=== PATIENT | male | born 1975 | race Caucasian/White ===

== ENCOUNTER → 2019-03-12 09:45 | Outpatient (BNVA) | payer MEDICAID, SELFPAY | PROVIDERS: Family Provider Physician Assistant; PCP Physician Assistant; Visit Provider Anesthesiology Pain Medicine | DX: M54.12 Radiculopathy, cervical region (principal); M50.90 Cervical disc disorder, unspecified, unspecified cervical region; Z71.89 Other specified counseling; F17.210 Nicotine dependence, cigarettes, uncomplicated; Z79.891 Long term (current) use of opiate analgesic | CPT/HCPCS: 62321; 64479; 77003; J1100; J2001 ==

== ENCOUNTER → 2019-03-25 07:52 | Outpatient (BNVA) | payer MEDICAID, SELFPAY | PROVIDERS: Family Provider Physician Assistant; PCP Family Medicine; Visit Provider Nurse Practitioner | DX: G89.29 Other chronic pain (principal); M54.2 Cervicalgia; M54.5 Low back pain; M96.1 Postlaminectomy syndrome, not elsewhere classified; F17.210 Nicotine dependence, cigarettes, uncomplicated; Z79.891 Long term (current) use of opiate analgesic | CPT/HCPCS: 99213; 99214 ==

== ENCOUNTER → 2019-04-04 08:06 | Outpatient (BNVA) | payer MEDICAID, SELFPAY | PROVIDERS: Family Provider Physician Assistant; PCP Family Medicine; Visit Provider Nurse Practitioner | DX: F40.10 Social phobia, unspecified (principal); F41.0 Panic disorder [episodic paroxysmal anxiety] | CPT/HCPCS: 99213 ==

== ENCOUNTER 2019-04-14 11:05 | Outpatient (CLI) | payer MEDICAID, SELFPAY ==
--- NOTE | 2019-04-14 | XR_ITS ---
WS: [id number] SHOULDER LEFT TECHNIQUE: 3 views of the left shoulder CLINICAL INFORMATION: ROTATOR CUFF DISORDER LEFT COMPARISON: None. FINDINGS: Mild degenerative arthritis AC joint. Mild downsloping of the acromion. Rotator cuff arthropathy with loss of the subacromial space. No acute fractures. XR/XR shoulder LT min 2V* [id number] IMPRESSION: Rotator cuff arthropathy with mild downsloping of the acromion.
== END 2019-04-14 11:06 | disposition home or self-care (01) ==
LOC: RADOUTREAD 16:14
PROVIDERS: Family Provider Physician Assistant; PCP Family Medicine; Visit Provider Family Medicine
DX: Z76.89 Persons encountering health services in other specified circumstances (principal)

== ENCOUNTER 2019-05-07 09:23 | Outpatient (CLI) | payer MEDICAID, SELFPAY ==
--- NOTE | 2019-05-07 10:00 | IR_ITS ---
WS: [id number] CERVICAL MYELOGRAM HISTORY: cervical pain COMPARISON: 06/21/2018 FLUOROSCOPY TIME: 1.2 minutes. Procedure, risks and complications were explained to the patient. Risks including bleeding, infection , headaches, allergic reaction and seizures. Consent has been obtained. With the patient in prone position the skin over the lumbar region is cleansed with ChloraPrep and an esthetized with lidocaine. 22-gauge spinal needle is inserted into the thecal sac at the appropriate level determined by fluoroscopy. Omnipaque 300; 12 ml is injected slowly under fluoroscopy with no co mplications. Needle bevel is perpendicular to the longitudinal fibers of the dura. Stylet is reinsert ed prior to removal of the needle. Patient tolerated the procedure well. Patient will proceed to CT f or further evaluation. Contrast is injected in the lumbar region. There is no complication during the injection. Prior anterior cervical fusion at C6-7 with interbody spacer. No lucency around the screws. Fusion ac ross the interbody spacer. Less than 2 mm retrolisthesis of C3-C4 with no instability during flexion or extension. IR/IR myelogram sp cervical [id number] IMPRESSION: 1. Prior anterior cervical fusion with interbody spacer at C6-7. No complicati ons. No loosening. 2. Uncomplicated cervical myelogram. 3. Mild spondylosis without instability.
[2019-05-07] MEDS: iohexol 300 mg/mL 50 mL Btl INTRATHECA (10:26)
--- NOTE | 2019-05-07 11:30 | CT_ITS ---
WS: [id number] CT CERVICAL MYELOGRAM HISTORY: cervical pain Technique: All CT scans at [facility] use at least one of these dose optimization techniq ues: automated exposure control; mA and/or kV adjustment per patient size (includes targeted exams wh ere dose is matched to clinical indication); or iterative reconstruction. DLP: 1654.3 mGycm COMPARISON: 06/21/2018 and 03/22/2017 Good opacification of thecal sac with contrast. Prior anterior cervical fusion at C6-7. Anterior cervical plate, vertebral body screws and interbody spacer are probably position. No loosening or fractures identified. Posterior alignment is normal. There are small endplate osteophytes at C3-C7. No fracture. C1-C2: Normal. C2-C3: Mild osteophytic ridging without stenosis. C3-C4: Mild osteophytic ridging without significant encroachment. C4-C5: Mild osteophytic ridging. No significant stenosis. C5-C6: Mild osteophytic ridging with very mild foraminal narrowing. No significant stenosis. C6-C7: Moderate osteophytic ridging. There is a focal 3 mm osteophyte with mild cord contact centrall y. There is mild bilateral foraminal narrowing predominantly due to osteophyte disease. Lung apices are clear. Paraspinal soft tissues are negative. CT/CT cervical spine w con [id number] IMPRESSION: 1. Stable anterior cervical fusion with interbody spacer at C6-7. 2. Mild osteophytic ridging at C6-7. 3 mm osteophyte contacts the ventral cord . 3. Mild bilateral foraminal narrowing at C5-6 and C6-7.
== END 2019-05-07 09:24 | disposition home or self-care (01) ==
PROVIDERS: Family Provider Physician Assistant; PCP Family Medicine; Visit Provider Specialist
DX: M47.892 Other spondylosis, cervical region (principal); M54.2 Cervicalgia; M25.78 Osteophyte, vertebrae; Z98.1 Arthrodesis status
CPT/HCPCS: 62302; 72040; 72126; Q9967

== ENCOUNTER 2019-05-08 10:20 | Outpatient (CLI) | payer MEDICAID, SELFPAY ==
--- NOTE | 2019-05-08 11:00 | MR_ITS ---
WS: [id number] MRI LEFT SHOULDER NONCONTRAST TECHNIQUE: Sagittal T2, coronal T1, T2 and proton density imaging. Axial gradient PDE imaging. CLINICAL INFORMATION: left shoulder pain COMPARISON: None. FINDINGS: Mild degenerative arthritis at the AC joint. Mild downsloping of the acromion. Mild narrowing of the subacromial space. Small amount of subacromial/subdeltoid fluid. Mild thinning of the distal supraspi natus with a small amount of tendinopathy distally. No high-grade tear. Normal infraspinatus. Normal teres minor. No full-thickness rotator cuff tears. Normal biceps tendon in the bicipital groove. Distal subscapularis tendon is intact. Glenoid labrum a ppears grossly intact. Normal bone marrow signal in the humeral head and glenoid. No acute fractures. Normal visualized soft tissues. MR/MR shoulder LT con* [id number] IMPRESSION: 1. Mild tendinopathy in the distal supraspinatus with mild downsloping of the acromion. Mild chronic thinning of the distal supraspinatus. 2. Rotator cuff is otherwise intact. 3. Normal biceps tendon in the bicipital groove. 4. Glenoid labrum appears grossly normal. 5. Mild degenerative arthritis at the AC joint with a small amount of subacrom ial/subdeltoid fluid.
== END 2019-05-08 10:21 | disposition home or self-care (01) ==
LOC: RADSHAW 10:20
PROVIDERS: Family Provider Physician Assistant; PCP Family Medicine; Visit Provider Orthopaedic Surgery
DX: M19.012 Primary osteoarthritis, left shoulder (principal); M25.512 Pain in left shoulder
CPT/HCPCS: 73221

== ENCOUNTER → 2019-05-20 08:25 | Outpatient (BNVA) | payer MEDICAID, SELFPAY | PROVIDERS: Family Provider Physician Assistant; PCP Family Medicine; Visit Provider Nurse Practitioner | DX: M54.2 Cervicalgia (principal); G89.29 Other chronic pain; M54.5 Low back pain; F17.210 Nicotine dependence, cigarettes, uncomplicated; Z79.891 Long term (current) use of opiate analgesic | CPT/HCPCS: 99214 ==

== ENCOUNTER → 2019-05-22 12:48 | Outpatient (BNVA) | payer MEDICAID, SELFPAY | PROVIDERS: Family Provider Physician Assistant; PCP Family Medicine; Visit Provider Anesthesiology Pain Medicine | DX: M50.90 Cervical disc disorder, unspecified, unspecified cervical region (principal); F17.210 Nicotine dependence, cigarettes, uncomplicated | CPT/HCPCS: 62321; J1100; J2001 ==

== ENCOUNTER → 2019-07-04 08:43 | Outpatient (BNVA) | payer MEDICAID, SELFPAY | PROVIDERS: Family Provider Physician Assistant; PCP Family Medicine; Visit Provider Nurse Practitioner | DX: F41.0 Panic disorder [episodic paroxysmal anxiety] (principal); F40.10 Social phobia, unspecified | CPT/HCPCS: 99214 ==

== ENCOUNTER → 2019-07-29 07:49 | Outpatient (BNVA) | payer MEDICAID, SELFPAY | PROVIDERS: Family Provider Physician Assistant; PCP Family Medicine; Visit Provider Anesthesiology | DX: G89.29 Other chronic pain (principal); M43.12 Spondylolisthesis, cervical region; M50.20 Other cervical disc displacement, unspecified cervical region; M50.90 Cervical disc disorder, unspecified, unspecified cervical region; M96.1 Postlaminectomy syndrome, not elsewhere classified; M47.819 Spondylosis without myelopathy or radiculopathy, site unspecified; F17.210 Nicotine dependence, cigarettes, uncomplicated; Z71.6 Tobacco abuse counseling; Z87.39 Personal history of other diseases of the musculoskeletal system and connective tissue; Z79.891 Long term (current) use of opiate analgesic | CPT/HCPCS: 99214 ==

== ENCOUNTER → 2019-09-04 07:35 | Outpatient (BNVA) | payer MEDICAID, SELFPAY | PROVIDERS: Family Provider Physician Assistant; PCP Family Medicine; Visit Provider Nurse Practitioner | DX: F41.0 Panic disorder [episodic paroxysmal anxiety] (principal); F40.10 Social phobia, unspecified | CPT/HCPCS: 99214 ==

== ENCOUNTER 2019-09-05 22:23 | Inpatient (IN) | payer MEDICAID, SELFPAY ==
[2019-09-05 22:24] VITALS: BP 126/86; PULSE 86; RESP 16; TEMP 36.6; O2SAT 96; BMI 20.7
--- NOTE | 2019-09-05 22:29 | ED_ITS ---
HPI - Psych General: Chief Complaint: Psychiatric Symptoms Stated Complaint: MHE Time Seen by Provider: 09/05/19 22:27 Source: patient and EMS Mode of arrival: EMS Limitations: no limitations History of Present Illness: HPI Narrative: 44-year-old male who states he has a history of anxiety and has had increasing anxiety. Patient states he is recently placed on clonazepam but he is having increased anger and feels like he may snap and hurt someone. He states that he he has no specific homicidal ideations but is scared he may snap and hurt someone. He denies any suicidal i deations. He is wanting help and wants to go to psychiatric unit. Review of Systems Const: Denies: fever(s), chills, body aches or change in appetite Eyes: Denies: blurry vision or eye discomfort ENMT: Denies: throat pain or dental pain Card: Denies: chest pain Resp: Denies: dyspnea GI: Denies: abdominal pain, nausea, vomiting or diarrhea : Denies: dysuria Musc: Denies: neck pain or back pain Skin/Breast: Denies: rash Neuro: Denies: headache(s) Psych: Reports: anxiety González/Lymph: Denies: easy bruising All/Imm: Denies: urticaria PFSH ED PFSH: Medical History (Updated 09/05/19 @ 22:31 by Justice Perez MD) Chronic low back pain Disc displacement, cervical H/O degenerative disc disease Hx of fracture of ankle (~05/2018) LEFT ANKLE DR CAGLE IN [facility] 05/2018 Long-term use of high-risk medication Panic disorder [episodic paroxysmal anxiety] Smoking Social phobia, unspecified Spondylolisthesis, cervical region Spondylosis without myelopathy or radiculopathy Surgical History Hx of cervical spine surgery (~08/03/16) 08/03/16 C6-7 ACDFF Family History Father , UNKNOWN CAUSE No problems noted. Denies family history of Diabetes Anesthesia complication Bleeding disorder Cancer Social History Smoking and tobacco status: current every day smoker cigarettes Years cigarettes smoked: 20 [ Other cigarette details: 6 CIGS DAY ] Alcohol intake: never Lives independently: Yes Marital status: Single Current occupational status: disabled History of recent travel: No Physical Exam Const: COMMON NORMALS: no acute distress, patient oriented x3 and healthy appearing HENMT: COMMON NORMALS: normocephalic and atraumatic HEAD & SCALP: normocephalic and atraumatic Eye: COMMON NORMALS: Equal, round and reactive pupils present and EOMs intact bilaterally PUPIL: Yes Equal, round and reactive pupils present Neck/C-Spine: COMMON NORMALS: full ROM and supple Chest: COMMONS NORMALS: normal inspection of the chest and normal palpation of entire chest wall Resp: COMMON NORMALS: normal respiratory effort, No retractions, No use of accessory muscles and clear to auscultation bilaterally AUSCULTATION: clear to auscultation bilaterally Cardio: COMMON NORMALS: regular rate, regular rhythm and No murmurs present (Cardio) RATE: regular rate RHYTHM: regular rhythm GI: COMMON NORMALS: Normal to inspection, nondistended, normoactive bowel sounds present, Soft to palpation, non-tender and no masses PALPATION: Yes Soft to palpation Extremity: COMMON NORMALS: normal to inspection and full ROM Neuro: COMMON NORMALS: patient oriented x3, moves all extremities and no focal motor deficits Psych: COMMON NORMALS: mental status grossly normal, Normal thought process present and cooperative MOOD & AFFECT: Yes anxious THOUGHT PROCESS: Normal thought process present Skin: COMMON NORMALS: no rashes or lesions noted and no wounds GENERAL SKIN EXAM: no rashes or lesions noted MDM - Psych MDM Narrative: Medical decision making narrative: Patient presents here with anxiety along with anger issues. Patient is voluntarily wanting to be placed in the psychiatric unit I spoke to psychiatrist and will admit at this time. Patient has been stable while here. Discharge Plan Discharge Patient Disposition: Admitted As Inpatient Clinical Impression: Anxiety, Outbursts of anger Condition: Stable Prescriptions: No Action quetiapine [Seroquel] 200 mg tablet 200 mg PO .HS Qty: 30 RF: 2 fluoxetine 40 mg capsule 80 mg PO QAM Qty: 60 RF: 2 clonazepam 0.5 mg tablet 0.5 mg PO BID Qty: 60 RF: 1 buspirone 10 mg tablet 10 mg PO TID Qty: 90 RF: 1 cetirizine [Zyrtec] 10 mg tablet 10 mg PO DAILY RF: 0 tizanidine 4 mg capsule 4 mg PO QID PRN (Reason: muscle spasticity) Qty: 120 RF: 1 Referrals: Bakari Hankins MD [Primary Care Provider] - Lilia Hankins PA [Family Provider] - Coding Level of Care Code ED Banquet Coordinator for Chg Fwshonan
[2019-09-05] MEDS: LORazepam 2 mg Tablet PO (22:34)
[2019-09-05 22:47] LABS: Basophils # 0.1 10^3/uL (0.0-0.1); Basophils % 0.3 %; Eosinophils % 0.3 %; Hematocrit 39.4 % (42.0-52.0); Hemoglobin 13.3 g/dL (11.7-16.6); Lymphocytes # 3.7 10^3/uL (0.8-4.8); Lymphocytes % 25.5 %; Mean Corpuscular HGB Conc 33.8 g/dL (30.0-36.0); Mean Corpuscular Hemoglobin 31.2 pg (28.0-34.0); Mean Corpuscular Volume 92.5 fL (80-94); Mean Platelet Volume 9.6 fL (7.4-10.4); Monocytes # 0.6 10^3/uL (0.2-0.9); Monocytes % 3.9 %; Neutrophils # 10.06 10^3/uL (1.8-7.7); Neutrophils % 69.7 %; Nucleated Red Blood Cells % 0 %; Platelet Count 183 10^3/cmm (130-400); Red Blood Count 4.26 10^6/uL (4.1-5.3); Red Cell Distribution Width 13.1 % (12.1-15.1); White Blood Count 14.5 10^3/uL (4.0-10.0)
[2019-09-05 23:04] LABS: Alanine Aminotransferase 16 U/L (0-41); Albumin Level 4.9 g/dL (3.5-5.2); Alcohol Level 209 mg/dL (0-10); Alkaline Phosphatase 62 IU/L (40-130); Anion Gap 16.3 (5-19); Aspartate Amino Transferase 21 U/L (0-40); Blood Urea Nitrogen 5 mg/dL (6-20); Calcium 9.7 mg/dL (8.5-10.5); Carbon Dioxide 25 mmol/L (22-29); Chloride 98 mmol/L (98-107); Globulin 2.5 g/dL (1.3-4.6); Glucose 107 mg/dL (65-115); Osmolality Calculated 278 mOsm/kg (285-295); Potassium 3.3 mmol/L (3.5-5.1); Sodium 136 mmol/L (136-145); Total Bilirubin 0.2 mg/dL (0.15-1.2); Total Protein 7.4 g/dL (6.6-8.7)
[2019-09-05] MEDS: OLANZapine 10 mg ODT PO (23:06)
[2019-09-05 23:18] LABS: Acetaminophen < 5.0 ug/mL (10-30); Salicylate < 0.3 mg/dL (3-10)
--- NOTE | 2019-09-05 23:27 | PC.NURSE ---
called report to REYMUNDO [place] in NPU
[2019-09-05] MEDS: potassium chloride ER 10 mEq Tablet 40 MEQ PO (23:28)
[2019-09-05 23:45] VITALS: BP 127/76; PULSE 80; RESP 18; TEMP 36.6; O2SAT 95
[2019-09-05 23:46] LABS: Amphetamines Screen Urine Negative (Negative); Barbiturates Screen Urine Negative (Negative); Benzodiazepines Screen Urine Negative (Negative); Cocaine Screen Urine Negative (Negative); Opiate Screen Urine Negative (Negative); PCP Screen Urine Negative (Negative); THC Screen Urine Negative (Negative)
[2019-09-05] MEDS: hyDROXYzine 25 mg Capsule 50 MG PO (23:53)
[2019-09-05] MEDS: nicotine 21 mg Patch 1 PATCH TRANSDERMA (23:55)
[2019-09-06] MEDS: diphenhydrAMINE 50 mg/mL SDV 1mL IM (00:05)
[2019-09-06] MEDS: LORazepam 2 mg/mL INJ 1 mL IM (00:06)
[2019-09-06] MEDS: haloperidol inj 5 mg/mL INJ 1 mL IM (00:07)
--- NOTE | 2019-09-06 00:16 | PC.NURSE ---
B52 INJECTION Requested something for anxiety. Given po Vistaril but says has tried that and it does not work. Says feels agitated and fells like he might tear things up Requesting Ativan. Given injection IM of Haldol, Ativan and Benadryl
--- NOTE | 2019-09-06 01:17 | PC.NURSE ---
Called Dr. Kim for orders at 0010. Phone rang but was not answered.
--- NOTE | 2019-09-06 01:34 | PC.NURSE ---
The patient rolled out of bed and fell to the floor at 0025 and 0045. He had no apparent injury. The patient did not report injury. returned to bed. One side rail up for safety.
[2019-09-06 06:00] VITALS: RESP 18
[2019-09-06] MEDS: CLONazepam 0.5 mg Tablet PO (08:10)
[2019-09-06] MEDS: BuSPIRONE 10 mg Tablet PO ×3 (08:10→22:40)
--- NOTE | 2019-09-06 10:33 | PM.NHP ---
Providers/Chief Complaint Admitting Physician: Esequiel Kim MD Primary Care Provider: Bakari Hankins MD Chief Complaint: ptsd/ depression/ anxiety HPI NPU History of Present Illness Chief complaint: I am not sure what is wrong. For the past several months, I have been irritable, angry at everybody, depressed, and having nightmares. History of present illness:Lon Curran is a 44 year old male [place] who reports significant symptoms of depression amplified by symptoms of posttraumatic stress disorder. He states that he has had suicidal ideation for the past several months. At no time has he had an intent or plan. He reports being sad and blue on a daily basis. He has anhedonia, irritability, feelings of hopelessness and worthlessness. There is nothing that he is looking forward to. He denies changes in appetite or sleep though sleep has been a problem for other reasons. He reports the presence of an auditory hallucination in the form of 1 voice telling him to do things that he probably should not do. His reality testing remains intact. There is no history of manic symptoms or signs. His urine drug screen is significant for inebriation: Laboratory Tests 09/05/19 09/05/19 22:35 22:38 Urine Opiates Screen Negative Ur Barbiturates Screen Negative Ur Phencyclidine Scrn Negative Ur Amphetamines Screen Negative U Benzodiazepines Scrn Negative Urine Cocaine Screen Negative U Marijuana (THC) Screen Negative Ethyl Alcohol 209 H He also has a history significant for posttraumatic stress disorder. 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 He reports hypervigilance. He reports avoidance. The Seroquel knocks him out at night but it does not provide him quality sleep. He continues to feel anxious and irritable in the morning. It takes him a while to get to sleep. He cannot identify any significant new stressors in his life. Emergency room physician note:44-year-old male who states he has a history of anxiety and has had increasing anxiety. Patient states he is recently placed on clonazepam but he is having increased anger and feels like he may snap and hurt someone. He states that he he has no specific homicidal ideations but is scared he may snap and hurt someone. He denies any suicidal ideations. He is wanting help and wants to go to psychiatric Mental health history: The patient is being [facility] an [facility] basis [facility]. His last medication management note of 04/04/2019: Subjective: Lon is a 44-year-old male, who presents to [facility] for medication management and follow up for his social phobia and panic disorder. He was last seen November 2018. Lon tells me he is doing well. He would like to continue his same medications today. No complaints of anxiety. PLAN: Assessment: Lon is satisfied with his current prescriptions for management of his anxiety. Plan: Continue Prozac 80 mg daily Continue Seroquel 200 mg at bedtime He reports that he has been on Prozac quite a long time and it is the only antidepressant he has ever taken. He is ambivalent about it has really ever provided benefit. However he is generally kind of hopeless and pessimistic on most every topic today. He reports the Seroquel provides no benefit other than sleep. It is not being used to target mood instability or hallucinations. Family psychiatric history is positive for about brother being treated for depression. His current status and medication regimen are unknown. Social history: The patient has 2 sons ages 7 and 11 which are his primary source of enjoyment in life. He is unemployed and feels that he cannot find work primarily due to a history of trauma to his legs that prevent him from working. For self-esteem, he does find some work around the house and takes care of his children. He grew up in [place]. He dropped out of school in the 10th grade. He never did get his GED. He moved to this area as he has family living here. Legal history: He denies any history of arrests and incarcerations probation or parole. However review of the [place] public record reveals the following arrests: 2000 for DWI, 2002 for second-degree burglary, 2005 for third-degree domestic assault, 2007 for DWI and trespass, in 2013 for DWI. Past medical history: Medical history has not changed significantly from that required during his medical evaluation in the emergency room. He has no known drug allergies. He has had 1 surgery on his ankle and he has a plate in his neck due to a musculoskeletal condition. His chart says that he is allergic to tramadol but he denies this. Review of Systems Const: Denies: fever(s), chills, body aches or change in appetite Eyes: Denies: blurry vision or eye discomfort ENMT: Denies: throat pain or dental pain Card: Denies: chest pain Resp: Denies: dyspnea GI: Denies: abdominal pain, nausea, vomiting or diarrhea : Denies: dysuria Musc: Denies: neck pain or back pain Skin/Breast: Denies: rash Neuro: Denies: headache(s) Psych: Reports: anxiety González/Lymph: Denies: easy bruising All/Imm: Denies: urticaria Meds NPU Home Medications Medication Instructions Recorded Confirmed Last Taken Type cetirizine 10 mg tablet 10 mg PO DAILY tab 03/12/19 09/05/19 Unknown History tizanidine 4 mg capsule 4 mg PO QID PRN #120 cap 07/29/19 09/05/19 Unknown Rx buspirone 10 mg tablet 10 mg PO TID #90 tab 09/04/19 09/05/19 Unknown Rx clonazepam 0.5 mg tablet 0.5 mg PO BID #60 tab 09/04/19 09/05/19 Unknown Rx fluoxetine 40 mg capsule 80 mg PO QAM #60 cap 09/04/19 09/05/19 Unknown Rx quetiapine 200 mg tablet 200 mg PO .HS #30 tab 09/04/19 09/05/19 Unknown Rx Allergies Allergy/AdvReac Type Severity Reaction Status Date / Time tramadol Allergy HIVES Verified 07/29/19 08:13 PFS NPU PFSH: Medical History (Updated 09/05/19 @ 22:31 by Justice Perez MD) Chronic low back pain Disc displacement, cervical H/O degenerative disc disease Hx of fracture of ankle (~05/2018) LEFT ANKLE DR CAGLE IN [facility] 05/2018 Long-term use of high-risk medication Panic disorder [episodic paroxysmal anxiety] Smoking Social phobia, unspecified Spondylolisthesis, cervical region Spondylosis without myelopathy or radiculopathy Surgical History Hx of cervical spine surgery (~08/03/16) 08/03/16 C6-7 ACDFF Family History Father , UNKNOWN CAUSE No problems noted. Denies family history of Diabetes Anesthesia complication Bleeding disorder Cancer Social History (Updated 09/05/19 @ 23:17 by Meir Harkins) Smoking and tobacco status: current every day smoker cigarettes Packs smoked per day: 0.5 Years cigarettes smoked: 20 Number of cigarettes per day: 11-20 [ Other cigarette details: 6 CIGS DAY ] Alcohol intake: never Lives independently: Yes Marital status: Single Current occupational status: disabled History of recent travel: No Dietary Habits: Current diet type/program: regular Safety: Seatbelt use: always Drive intoxicated or ride with intoxicated special client bus driver?: never Home Safety: Working smoke detector in home: Yes Firearms in home: Yes Firearms unloaded and locked?: Yes Mental Status Exam MSE Comments: Mental Status Exam: The patient is a scruffy, unkempt tall thin man appearing approximately his stated age. Eye contact is good. He is interpersonally engaged. The information he provides is internally consistent and consistent with that in the chart. However it is noteworthy that he did not provide a lot of information that is in the chart. He discussed neither his degree of alcohol use or his criminal record. Appearance: hygiene is fair; no gross neurological deficits., gait is unremarkable; AIMS=0 Speech: Speech is of normal rate and rhythm and easily understood. Thought processes: Thought processes are abstract. Judgment is adequate for safety. Associations: intact Psychotic processes: There is no indication of guarding or paranoia. There is no attention to the internal stimuli. Auditory and visual hallucinations are denied. Judgment: Insight is fair. Problem solving skills are adequate for safety. Orientation: The patient is oriented to person, place time and situation. Memory: no deficits noted in immediate, intermediate, or remote spheres. Attention: The patient is alert and interpersonally engaged. Language: Verbalizations are coherent. Fund of knowledge: Fund of knowledge is adequate. Affect/Mood: Affect is consistent with a depressed mood. Denied suicidal ideation Affective range constricted Psychosis: perception unimpaired except through cognitive distortion; reality testing intact. Vitals/I&O/Wt Last Vital Signs Temp 97.9 F 09/05/19 23:45 Pulse 80 09/05/19 23:45 Resp 18 09/06/19 06:00 BP 127/76 09/05/19 23:45 Pulse Ox 95 09/05/19 23:45 Weight last 48 hrs Weight 63.503 kg Data NPU : 09/05/19 22:38 09/05/19 22:38 A&P Additional A&P Information Diagnoses: Alcohol intoxication Major depression?recurrent, moderate Posttraumatic stress disorder?chronic Assessment: It is difficult to assess his degree of depression in the presence of his alcohol use. However he clearly meets criteria for clinical depression and does not report significant benefit from his history of Prozac treatment. It is also true that the Seroquel is probably not serving him well in treating his PTSD symptoms. Staff witnessed on his first night here that his sleep was quite fitful to the extent that his thrashing caused him to fall out of bed twice. Treatment plan: Due to the psychiatric conditions and treatment listed in the Assessment and Plan - the patient requires continued hospitalization. Will provide a safe and therapeutic environment for patient.. Will continue inpatient treatment to allow for medication adjustment and monitoring. Will continue q15 min safety checks. Hospital day #2: Patient will be admitted to the adult psychiatric unit and provided entry into the individual and group therapy as part of the unit protocol. He will be provided nursing coverage by trained nursing staff who will be available to him. With regard to medication, Seroquel will be decreased to 100 mg at bedtime until a prazosin 1 to 2 mg at bedtime are found effective in helping him sleep. Prozac will be replaced with Celexa 40 mg daily. Potential benefits and side effects of these medications as well as time course of expected response to them was discussed in detail. Monitor patient's mood, sleep, appetite, and behavior closely. Encourage patient to participate in individual and group therapeutic sessions on the borrero. Estimated length of stay 5 days The expected benefits and potential side effects of patient's psychiatric medications were discussed with the patient. The patient understands and consents to treatment.CRITERIA FOR DISCHARGE: stable on medications and no longer an imminent risk Involuntary Hold Information 96 Hour Hold: 96 Hour Involuntary Admission: No Attestations NPU Medical Necessity Statement*: Patient will remain in the hospital another 2-4 nights for assessment of medication efficacy and tolerability. Coding Level of Care Code Acute Electronic Parts Salesperson for Giuseppe Arredondo
[2019-09-06 13:33] VITALS: BP 127/77; PULSE 95; RESP 17; TEMP 37.1
[2019-09-06 22:00] VITALS: BP 119/73; PULSE 116; RESP 22; TEMP 37.1; O2SAT 94
[2019-09-06] MEDS: prazosin 1 mg Capsule 2 MG PO (22:40)
[2019-09-06] MEDS: hyDROXYzine 25 mg Capsule 50 MG PO (22:40)
[2019-09-06] MEDS: quetiapine 100 mg Tablet PO (22:40)
[2019-09-07 05:49] VITALS: BP 119/73; PULSE 116; RESP 22; TEMP 37.1; O2SAT 94
[2019-09-07 06:25] VITALS: BP 114/79; PULSE 104; RESP 19; TEMP 36.9; O2SAT 92
[2019-09-07] MEDS: BuSPIRONE 10 mg Tablet PO (09:03)
[2019-09-07] MEDS: citalopram 20 mg Tablet 40 MG PO (09:03)
[2019-09-07 13:14] VITALS: BP 114/79; PULSE 104; RESP 19; TEMP 36.9; O2SAT 92
--- NOTE | 2019-09-07 13:19 | PM.NDC ---
Diagnoses at Discharge Discharge Diagnosis (1) Anxiety: Status: Acute Problem details: Patient leaving AMA. (2) Outbursts of anger: Status: Acute Problem details: Patient is leaving AMA. (3) Panic disorder [episodic paroxysmal anxiety]: Status: Acute Problem details: Patient is leaving AMA. Reason for Visit Reason for Visit: ptsd/ depression/ anxiety Hospital Course Hospital Course The patient entered yesterday and was examined by Dr. Fritz. He was at no time considered to be a danger to himself or others. Discharge Summary The patient failed to involve himself establish a treatment relationship here at the [facility]. He is requesting to sign out AGAINST MEDICAL ADVICE and I have evaluated him. I have found him to be competent to undertake this and understands the disadvantages also to discharge, which I have carefully reviewed with him. Involuntary Hold Information 96 Hour Hold: 96 Hour Involuntary Admission: No Mental Status Exam MSE Comments: This is a 44-year-old male of [employer] who came here for intrapsychic help but decided it was not to his taste. He presents at his stated age. He is somewhat disheveled but mood is calm and affect is appropriate and cognitive functions are certainly adequate for him to perform a rational and factual choice between various treatment alternatives, including no treatment at all. He elects the latter. He denies suicidal or homicidal ideation, plan or intent. He has treatment available through the [facility] system here. Discharge Data Vitals: Last Vital Signs Temp 98.4 F 09/07/19 13:14 Pulse 104 H 09/07/19 13:14 Resp 19 H 09/07/19 13:14 BP 114/79 09/07/19 13:14 Pulse Ox 92 09/07/19 13:14 Discharge Plan Discharge Patient Disposition: Home, Self-Care Condition: Stable Prescriptions: Continued quetiapine [Seroquel] 200 mg tablet 200 mg PO .HS Qty: 30 RF: 2 fluoxetine 40 mg capsule 80 mg PO QAM Qty: 60 RF: 2 clonazepam 0.5 mg tablet 0.5 mg PO BID Qty: 60 RF: 1 buspirone 10 mg tablet 10 mg PO TID Qty: 90 RF: 1 cetirizine [Zyrtec] 10 mg tablet 10 mg PO DAILY RF: 0 tizanidine 4 mg capsule 4 mg PO QID PRN (Reason: muscle spasticity) Qty: 120 RF: 1 Discharge Orders: Discharge Order (Routine); Ordered 09/07/19 Ordered By: Geovani Olivo Referrals: Bakari Hankins MD [Primary Care Provider] - Lilia Hankins PA [Staff Physician] - Discharge Diet: Usual diet Discharge Activity: Resume usual activity Discharge Attestations NPU Time Spent in Discharge Care*: other Specific Discharge Activities: Specific discharge activities: educating patient, discussing with protective services case worker/social workers/dc planners, documenting/other paperwork and evaluating patient/reviewing data Other discharge activites (optional): Assessing competency to sign out AGAINST MEDICAL ADVICE. Status at Discharge: Cognitive status at discharge: cognitively intact, Behavioral status at discharge: cooperative, Functional status at discharge: independent ambulation Overall status at discharge: patient is back to baseline Coding Level of Care Code Acute Corn Sheller Operator for Chg Fwd Diagnoses Anxiety F41.9 Outbursts of anger R45.4 Panic disorder [episodic paroxysmal anxiety] F41.0
--- NOTE | 2019-09-08 11:26 | PC.RESP ---
Smoking Cessation informatoin and a schedule of classes sent to patient.
== END 2019-09-07 14:12 | disposition left against medical advice (07) | DRG 880 ==
LOC: ER 22:39 → NP 22:45
PROVIDERS: Emergency Medicine; Admitting Provider Psychiatry & Neurology Psychiatry; PCP Family Medicine; Visit Provider Psychiatry & Neurology Psychiatry
DX: F41.0 Panic disorder [episodic paroxysmal anxiety] (principal); F33.1 Major depressive disorder, recurrent, moderate; F41.9 Anxiety disorder, unspecified; F43.12 Post-traumatic stress disorder, chronic; F17.210 Nicotine dependence, cigarettes, uncomplicated; G89.29 Other chronic pain; M54.5 Low back pain; Z53.29 Procedure and treatment not carried out because of patient's decision for other reasons
CPT/HCPCS: 12345; 36415; 80053; 80306; 80307; 85025; 96372; 99284; J1200; J1630; J2060

== ENCOUNTER 2019-09-05 22:32 | Emergency (ER) | payer MEDICAID, SELFPAY | END 2019-09-05 23:34 | disposition admitted as inpatient to this hospital (09) | LOC: ER 09-08 16:04 | PROVIDERS: Emergency Provider Emergency Medicine; PCP Family Medicine | DX: F41.9 Anxiety disorder, unspecified (principal); R45.4 Irritability and anger; F17.210 Nicotine dependence, cigarettes, uncomplicated | CPT/HCPCS: 12345; 36415; 85025; 96365; 96367; 96375; 99284; 99285 ==

== ENCOUNTER 2019-09-14 00:35 | Inpatient (IN) | payer MEDICAID, SELFPAY ==
--- NOTE | 2019-09-14 00:43 | W.ED.PSYCH ---
HPI - Psych General: Chief Complaint: Psychiatric Symptoms Stated Complaint: PSYCH EVAL Time Seen by Provider: 09/14/19 00:42 Source: patient Mode of arrival: ambulatory Limitations: no limitations History of Present Illness: HPI Narrative: 44-year-old male patient comes in today with suicidal thoughts and homicidal thoughts. Patient states that he has come to the point where he just wishes he was . Patient also is just would like to hurt everyone around him. Patient does have a history of anxiety and depression with outbursts of anger, panic disorder, and social phobia. Patient appears well. Patient also appears to have a chronic back pain as a history and long-term use of high-risk medications. Associated symptoms: Reports depression, homicidal ideation and suicidal ideation Review of Systems General: Reports: 10 or more systems reviewed and unremarkable except in HPI and below Psych: Reports: anxiety, depression, suicidal ideation and homicidal ideation [facility] ED PFSH: Medical History (Updated 09/14/19 @ 02:10 by LATRELL Weaver) Chronic low back pain Disc displacement, cervical H/O degenerative disc disease Hx of fracture of ankle (~05/2018) LEFT ANKLE DR CAGLE IN [facility] 05/2018 Long-term use of high-risk medication Panic disorder [episodic paroxysmal anxiety] Patient is leaving AMA. Smoking Social phobia, unspecified Spondylolisthesis, cervical region Spondylosis without myelopathy or radiculopathy Surgical History Hx of cervical spine surgery (~08/03/16) 08/03/16 C6-7 ACDFF Family History Father , UNKNOWN CAUSE No problems noted. Denies family history of Diabetes Anesthesia complication Bleeding disorder Cancer Social History (Updated 09/05/19 @ 23:17 by Meir Harkins) Smoking and tobacco status: current every day smoker cigarettes Packs smoked per day: 0.5 Years cigarettes smoked: 20 [ Other cigarette details: 6 CIGS DAY ] Alcohol intake: never Lives independently: Yes Marital status: Single Current occupational status: disabled History of recent travel: No Physical Exam Const: COMMON NORMALS: no acute distress and patient oriented x3 GENERAL APPEARANCE: cooperative and well kempt HENMT: COMMON NORMALS: normocephalic and Normal external nose present HEAD & SCALP: normal to inspection and normocephalic NOSE: Normal external nose present MOUTH: Normal oral and palatal mucosa present THROAT: posterior oropharynx normal Eye: GENERAL EYE: appearance normal, both eyes and all related structures Neck/C-Spine: COMMON NORMALS: full ROM Lymph: LYMPHATIC: no lymphadenopathy noted Chest: COMMONS NORMALS: normal inspection of the chest Resp: COMMON NORMALS: normal respiratory effort EFFORT & INSPECTION: Yes able to speak in complete sentences Cardio: COMMON NORMALS: regular rate and regular rhythm RATE: regular rate RHYTHM: regular rhythm GI: COMMON NORMALS: non-tender Back/Pelvis: COMMON NORMALS: thoracic and lumbar spine normal to inspection Extremity: COMMON NORMALS: normal to inspection Neuro: COMMON NORMALS: patient oriented x3 and moves all extremities Psych: COMMON NORMALS: mental status grossly normal, Normal thought process present, cooperative and speech normal APPEARANCE: Yes well kempt ATTITUDE: Yes calm and Yes Guarded attititude/behavior present ACTIVITY/MOTOR BEHAVIOR: Yes appropriate eye contact SPEECH: Yes normal speech MOOD & AFFECT: Yes euthymic mood THOUGHT PROCESS: Normal thought process present THOUGHT CONTENT: Yes Suicidality present and Yes Homicidality present ATTENTION/CONCENTRATION: Yes attention grossly intact MEMORY/COGNITION: Yes memory grossly intact INSIGHT: Good insight present (Psych) JUDGEMENT: Good judgement present (Psych) Skin: COMMON NORMALS: no rashes or lesions noted GENERAL SKIN EXAM: no rashes or lesions noted MDM - Psych MDM Narrative: Medical decision making narrative: Patient comes in today for complaints of suicidal thoughts and wishing to harm others. Patient states he just is so fed up with this world that he just cannot take it anymore. Patient specifies no particular plan to hurt himself but it is concerning and patient wants to harm others. Patient does not have a specific individual that he wishes to harm. Patient did get belligerent with a another visitor while in the emergency department but was able to be redirected safely back to his room. Physical exam was normal. Differential diagnosis includes but not limited to suicidal thoughts, homicidal thoughts, schizotypal disorder, paranoia. Patient was medicated with 1 mg Ativan and 200 mg of Seroquel in the ER which seemed to help relax him. Patient needs admission to the neuropsychiatric unit for protection of self and others, and for further evaluation and treatment of his mental health disorder. Dr. Collins agreed to the admission. Dr. Perez placed orders for admission. EKG Data^: EKG 1: Attestation: I personally reviewed and interpreted this EKG as follows: (0-16, normal EKG, sinus rhythm regular rate at 86 bpm. No ectopy, no ST elevation.) Discharge Plan Discharge Patient Disposition: Admitted As Inpatient Clinical Impression: Suicidal ideation, Social phobia, unspecified, Outbursts of anger, Anxiety Condition: Stable Referrals: Bakari Hankins MD [Primary Care Provider] - Coding Level of Care Code ED Paint Sprayer Sandblaster for Chg Fwd Exam Comprehensive
--- NOTE | 2019-09-14 00:46 | ECG_ITS ---
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 Measurements Intervals [place] Rate: 86 P: 69 MI: 129 QRS: 77 QRSD: 88 T: 66 QT: 395 QTc: 474 Interpretive Statements SINUS RHYTHM Compared to ECG 01/11/2016 18:07:20 No significant changes Electronically Signed On 09-14-2019 22:03:15 CDT by Deneen Sawyer M.D. [email or web address]
[2019-09-14] MEDS: LORazepam 1 mg Tablet PO (01:00)
[2019-09-14] MEDS: quetiapine 100 mg Tablet 200 MG PO (01:00)
[2019-09-14 02:13] LABS: Add Urine Microscopic? NO
[2019-09-14 02:30] VITALS: BP 84/50; PULSE 94; RESP 16; O2SAT 89
[2019-09-14 02:31] LABS: Basophils % 0.5 %; Eosinophils # 0.1 10^3/uL (0.0-0.8); Eosinophils % 1.5 %; Hematocrit 38.2 % (42.0-52.0); Lymphocytes # 4.6 10^3/uL (0.8-4.8); Lymphocytes % 55.3 %; Mean Corpuscular Hemoglobin 31.6 pg (28.0-34.0); Mean Corpuscular Volume 92.7 fL (80-94); Mean Platelet Volume 9.5 fL (7.4-10.4); Monocytes # 0.4 10^3/uL (0.2-0.9); Monocytes % 4.8 %; Neutrophils # 3.11 10^3/uL (1.8-7.7); Neutrophils % 37.5 %; Nucleated Red Blood Cells % 0 %; Platelet Count 215 10^3/cmm (130-400); Red Blood Count 4.12 10^6/uL (4.1-5.3); Red Cell Distribution Width 13.2 % (12.1-15.1); White Blood Count 8.3 10^3/uL (4.0-10.0)
[2019-09-14 02:31] LABS: Bilirubin Urine Neg (NEGATIVE); Blood Urine Neg (Negative); Glucose Urine UA Norm (Normal); Ketones Urine Negative (Negative); Leukocyte Esterase Urine Negative (Negative); Nitrate Urine Negative (Negative); Protein Urine Neg (Negative); Specific Gravity, Urine 1.005 (1.005-1.030); Urine Appearance Clear (CLEAR); Urine Color Straw (Yellow); Urobilinogen Urine Norm (Negative); pH Urine 5 (5-7)
[2019-09-14 02:47] LABS: Alanine Aminotransferase 16 U/L (0-41); Albumin Level 4.4 g/dL (3.5-5.2); Alcohol Level 184 mg/dL (0-10); Alkaline Phosphatase 73 IU/L (40-130); Anion Gap 18.6 (5-19); Aspartate Amino Transferase 18 U/L (0-40); Blood Urea Nitrogen 10 mg/dL (6-20); Calcium 8.7 mg/dL (8.5-10.5); Carbon Dioxide 24 mmol/L (22-29); Chloride 102 mmol/L (98-107); Globulin 3.2 g/dL (1.3-4.6); Glomerular Filtration Rate 123.7 mL/min (90-130); Glucose 84 mg/dL (65-115); Osmolality Calculated 287 mOsm/kg (285-295); Potassium 3.6 mmol/L (3.5-5.1); Sodium 141 mmol/L (136-145); Thyroid Stimulating Hormone 0.68 uIU/mL (0.27-4.20); Total Bilirubin 0.2 mg/dL (0.15-1.2); Total Protein 7.6 g/dL (6.6-8.7)
[2019-09-14 02:48] LABS: Acetaminophen < 5.0 ug/mL (10-30); Salicylate < 0.3 mg/dL (3-10)
[2019-09-14 02:58] LABS: Amphetamines Screen Urine Negative (Negative); Barbiturates Screen Urine Negative (Negative); Benzodiazepines Screen Urine Negative (Negative); Cocaine Screen Urine Negative (Negative); Opiate Screen Urine Negative (Negative); PCP Screen Urine Negative (Negative); THC Screen Urine Positive (Negative)
[2019-09-14] MEDS: sodium chloride 0.9% 1,000 ML 999 ML IV (03:12)
[2019-09-14] MEDS: ketorolac 30 mg/mL INJ 15 MG IVP (03:12)
[2019-09-14 03:30] VITALS: BP 98/60; PULSE 92; RESP 18; O2SAT 98
[2019-09-14 04:30] VITALS: BP 100/55; PULSE 82; RESP 18; O2SAT 96
[2019-09-14 06:22] VITALS: BP 121/76; PULSE 72; RESP 18; TEMP 36.7; O2SAT 96
--- NOTE | 2019-09-14 06:27 | PC.NURSE ---
Current swevices through behavioral health.
--- NOTE | 2019-09-14 09:25 | PM.NHP ---
Providers/Chief Complaint Admitting Physician: Misael Collins MD Primary Care Provider: Bakari Hankins MD Chief Complaint: PSYCH EVAL HPI NPU History of Present Illness Lon Curran is a 44 year old male Lon presented to the emergency room endorsing suicidal thoughts and not being well overall, feeling depressed, and somewhat vague, but unable to contract for safety. He was admitted to the neuropsychiatric unit for definitive treatment of those issues. Today he continues to endorse just not feeling well and feeling like he ?needed a break.?. He endorsed that he had been taking his medication, but he did not feel that it had been that effective. He endorsed a desire to have the Klonopin increased to three times a day from his current twice a day dosing. We were working to get verification of the exact doses and agreed to restart medications as we had verification. He endorsed that he was also taking Seroquel, Prozac, and other medication, but seemed to focus on the increase in the Klonopin. He was not a great historian but did review his last inpatient hospitalization with this engineering technical writer and endorsed that there had not been substantive changes from that time. An excerpt of that note is included below. He endorsed past suicide attempts and feeling unsafe at this point. Date of Service: Jan 12, 2016 Chief Complaint: Suicidal and homicidal ideation HPI: Mr. Curran is a 40-year-old male who is no [facility] with previous diagnosis of depression and anxiety, who was admitted under a 96 hour hold for the expression of suicidal and homicidal ideation in the emergency department. Patient reports that he's been feeling increasingly frustrated and the transition between Medicaid programs which has resulted in not being able to get his medications. He is a patient over at the [facility] pain clinic, and also over at [facility], and he is prescribed mental health and pain medications. He states that he's been out of his medications for some weeks now because he is unable to afford the medicines without coverage. States that yesterday in his attempt to get his prescriptions, when he learned that there were not covered by his insurance, he became acutely frustrated and angry and expressed suicidal and homicidal ideation. As he presents today he denies that prior to this that he was experiencing any significant mood symptoms, but he has been fatigued with difficulty with sleep, associated with his chronic pain. He denies any psychotic symptoms, and denies any symptoms consistent with ramona, hypomania, PTSD. He frankly and emphatically denies any suicidal homicidal ideation today and is able to contract for safety in the community. Allergies: Coded Allergies: TRAMADOL (Verified Allergy, Intermediate, RASH, HIVES, 10/25/12) Active Meds: Current Hospital Medications: Medications (Trade) Dose Ordered Sig/Alix Route PRN Reason Start Time Stop Time Status Last Admin Dose Admin Lorazepam (Ativan Tab) 0.5 mg Q4H PRN PO FOR MILD ANXIETY 01/11/16 19:00 Lorazepam (Ativan Tab) 1 mg Q4H PRN PO FOR MODERATE ANXIETY 01/11/16 19:00 Lorazepam (Ativan Tab) 2 mg Q4H PRN PO FOR SEVERE ANXIETY 01/11/16 19:00 Lorazepam (Ativan Inj) 2 mg Q4H PRN IM For Severe Aggression 01/11/16 19:00 Haloperidol Lactate (Haldol Inj) 5 mg Q4H PRN IM Severe Aggression 01/11/16 19:00 Diphenhydramine HCl (Benadryl Inj) 50 mg ONCE PRN IV Severe Extrapyramidal Symptoms 01/11/16 19:00 Benztropine Mesylate (Cogentin Tab) 1 mg BID PRN PO Mild Extrapyramidal symptoms 01/11/16 19:00 Benztropine Mesylate (Cogentin Inj) 1 mg ONCE PRN IM Severe Extrapyramidal Symptom 01/11/16 19:00 Acetaminophen (Tylenol Tab) 650 mg Q4H PRN PO FOR MILD PAIN 01/11/16 19:00 01/11/16 21:29 Trazodone HCl (Trazodone) 50 mg BEDTIME PRN PO FOR SLEEP 01/11/16 19:00 01/11/16 21:28 Nicotine (Nicoderm Patch) 21 mg DAILY PRN TD FOR WITHDRAWAL 01/11/16 19:00 Nicotine Polacrilex (Nicotine Gum) 2 mg Q2H PRN PO Withdrawal 01/11/16 19:00 Haloperidol (Haldol Tab) 5 mg Q4H PRN PO For agitation 01/11/16 19:00 Lorazepam (Ativan Tab) 2 mg Q4H PRN PO FOR AGITATION 01/11/16 19:00 Fluoxetine HCl (Prozac) 50 mg DAILY PO 01/13/16 10:00 UNV Mirtazapine (Remeron) 15 mg BEDTIME PO 01/12/16 22:00 UNV Past Medical History Past Medical History: PAST PSYCHIATRIC HISTORY: -He states this is his first psychiatric hospitalization in almost 5 years -Receives outpatient mental health care at [facility] PAST FAMILY PSYCHIATRIC HISTORY: -Noncontributory SOCIAL HISTORY: -Currently lives with his son PAST MEDICAL HISTORY: -Chronic back pain Review of Systems Review of Systems: REVIEW OF SYSTEMS: The ROS is per HPI, all other systems were reviewed and were negative. Physical Exam Vital Signs: Vital Signs: Date Time Temp Pulse Resp B/P Pulse Ox O2 Delivery O2 Flow Rate FiO2 01/12/16 06:30 97.8 64 18 110/68 98 01/11/16 21:00 Room Air Physical Exam: PHYSICAL EXAMINATION: The patient was medically stabilized for admission to the NPU in the ED. MENTAL STATUS EXAMINATION: Vital Signs: Reviewed Appearance: Disheveled Behavior: Within normal limits Gait: Walks with the assistance of a cane Speech: Within normal limits Thought Process: Linear Thought Content: Denies any current suicidal or homicidal ideation, there is no paranoid or delusional ideation, and there are no hallucinations of any sensory modality Mood & Affect: Restricted but appropriate to content Insight & Judgment: Fair to good Alert & Oriented: ?3 Fund of Knowledge: Intact Language: Intact Recent & Remote Memory: Intact Data Labs reviewed by provider: UDS negative Alcohol 3 Result Diagram: 01/11/16 1756 01/11/16 1756 document embedded image Discharge Medical Necessity Statement: Initial presentation of the state is suggested that the patient will be hospitalized for at least 2 midnights, however upon assessment and evaluation, he will be discharged today. Discharge Date: Jan 12, 2016 Admitting Diagnoses: 1. Depression 2. Anxiety 3. Chronic pain Discharge Diagnoses: (1) Depression Status: Acute (2) Anxiety Status: Acute (3) Back pain Status: Acute Meds NPU Home Medications Medication Instructions Recorded Confirmed Last Taken Type tizanidine 4 mg capsule 4 mg PO QID PRN #120 cap 07/29/19 09/05/19 Unknown Rx fluoxetine 40 mg capsule 80 mg PO QAM #60 cap 09/04/19 09/14/19 Unknown Rx buspirone 10 mg PO TID 30 Days #90 tab 09/16/19 Unknown Rx cetirizine [Zyrtec] 10 mg PO DAILY 30 Days #30 tab 09/16/19 Unknown Rx clonazepam 0.5 mg PO BID 30 Days #60 tab 09/16/19 Unknown Rx lithium carbonate 300 mg PO BEDTIME 30 Days #30 cap 09/16/19 Unknown Rx quetiapine [Seroquel] 200 mg PO .HS 30 Days #30 tab 09/16/19 Unknown Rx Allergies Allergy/AdvReac Type Severity Reaction Status Date / Time tramadol Allergy HIVES Verified 07/29/19 08:13 PFSH NPU PFSH: Medical History (Updated 09/18/19 @ 04:47 by Justice Perez MD) Chronic low back pain Disc displacement, cervical H/O degenerative disc disease Hx of fracture of ankle (~05/2018) LEFT ANKLE DR CAGLE IN [facility] 05/2018 Long-term use of high-risk medication Panic disorder [episodic paroxysmal anxiety] Patient is leaving AMA. Smoking Social phobia, unspecified Spondylolisthesis, cervical region Spondylosis without myelopathy or radiculopathy Surgical History Hx of cervical spine surgery (~08/03/16) 08/03/16 C6-7 ACDFF Family History Father , UNKNOWN CAUSE No problems noted. Denies family history of Diabetes Anesthesia complication Bleeding disorder Cancer Social History Smoking and tobacco status: current every day smoker cigarettes Packs smoked per day: 0.5 Years cigarettes smoked: 20 [ Other cigarette details: 6 CIGS DAY ] Alcohol intake: never Lives independently: Yes Marital status: Single Current occupational status: disabled History of recent travel: No Mental Status Exam MSE Comments: This is a well-nourished, well-developed, white male, with limited dress, grooming, and eye contact. No abnormal movements except for significant psychomotor retardation. Semi-cooperative with exam in mild distress. Speech was decreased rate and volume. Mood described as depressed; affect subdued. Thought process, organized. Thought content: patient did endorse suicidal ideation/passive wish. Insight and judgment are limited. Impulse control is limited. Vitals/I&O/Wt Last Vital Signs Temp 98.1 F 09/14/19 06:22 Pulse 72 09/14/19 06:22 Resp 18 09/14/19 06:22 BP 121/76 09/14/19 06:22 Pulse Ox 96 09/14/19 06:22 Weight last 48 hrs Weight 58.513 kg Data NPU : 09/14/19 02:12 09/14/19 02:12 A&P Assessment and plan (1) Substance abuse: This is a 44 year old, white male, with depression and active addiction, who presents requesting some medication changes and with vague reports of depression and suicidality. Continue current medication. We will assess what his medications have been recently and agreed to reach out to his provider in relation to the Klonopin increase. Continue q 15-minute checks for safety. Encourage individual, group, and milieu therapy. Encourage discharge to a sober living facility at the highest level of treatment to which he is willing to commit. Status: Acute (2) Major depression: Status: Acute (3) Suicidal ideation: Status: Resolved (4) Anxiety: Status: Acute Involuntary Hold Information 96 Hour Hold: 96 Hour Involuntary Admission: No Attestations NPU Medical Necessity Statement*: Inpatient hospitalization is medically necessary, and the clinically appropriate intervention at this time. We will monitor medications and titrate as indicated. He will be in the hospital for over two midnights. Likely length of stay two to four days. Coding Level of Care Code Acute Cattle Manager for Giuseppe Arredondo Diagnoses Substance abuse F19.10 Major depression F32.9 Suicidal ideation R45.851 Anxiety F41.9
[2019-09-14] MEDS: OLANZapine 5 mg ODT PO (09:55)
--- NOTE | 2019-09-14 09:56 | PC.NURSE ---
Patient Behavior Patient was displaying visual hallucinations, given prn zyprexa zydis
[2019-09-14 14:00] VITALS: BP 128/72; PULSE 82; RESP 20; TEMP 36.8; O2SAT 96
[2019-09-14 20:19] VITALS: BP 123/85; PULSE 71; RESP 18; TEMP 37.1; O2SAT 95
[2019-09-14] MEDS: CLONazepam 0.5 mg Tablet PO (22:20)
[2019-09-15 06:00] VITALS: BP 153/91; PULSE 75; RESP 12; TEMP 36.7; O2SAT 95
[2019-09-15] MEDS: CLONazepam 0.5 mg Tablet PO ×2 (08:16→17:24)
[2019-09-15] MEDS: fluoxetine 20 mg Capsule 80 MG PO (08:16)
[2019-09-15] MEDS: OLANZapine 5 mg ODT PO ×2 (08:17→12:01)
--- NOTE | 2019-09-15 08:18 | PC.NURSE ---
PRN Zyprexa Zydis Patient requested medication for anxiety. Given 5 mg po zyprexa zydis
--- NOTE | 2019-09-15 11:52 | P.PN_ITS ---
Subjective NPU Subjective: Interval history: Lon presents today endorsing an openness and willingness to restart the medications. We got his non controlled medication restarted, including Prozac and Seroquel, as well as the Klonopin that we were able to confirm. But he is very focused on his anxiety being out of control, although he does not appear to be overly anxious, and seems to be staying calm and quiet in his room. But he is very focused on getting that adjusted. We have reached out to his outpatient provider, who is on vacation, and they are going to get back to us as soon as they can. I advised him that I do not feel comfortable increasing the medication, given the fact that she will be required to fill it, and that she is had the opportunity to increase it and has not. Additionally, he presented with a positive drug screen, alcohol in his system, and against the backdrop of that issue, that is something I want to defer to his outpatient provider. Mental Status Exam MSE Comments: This is a well-nourished, well-developed, white male, with limited dress, grooming, and eye contact. No abnormal movements except for significant psychomotor retardation. Semi-cooperative with exam in mild distress. Speech was OK rate and volume. Mood described as depressed; affect subdued. Thought process, organized. Thought content: patient did endorse suicidal ideation/passive wish. Insight and judgment are limited. Impulse control is limited. Vitals/I&O/Wt Last Vital Signs Temp 98.4 F 09/15/19 20:02 Pulse 73 09/15/19 20:02 Resp 14 09/15/19 20:02 BP 113/74 09/15/19 20:02 Pulse Ox 96 09/15/19 20:02 Weight last 48 hrs Weight 58.513 kg Data NPU : 09/14/19 02:12 09/14/19 02:12 A&P Assessment and plan (1) Substance abuse: Status: Acute (2) Major depression: Status: Acute (3) Suicidal ideation: (1) Substance abuse: This is a 44 year old, white male, with depression and active addiction, who presents requesting some medication changes and with vague reports of depression and suicidality. Continue current medication. Home medications were restarted and we will await response from his provider in relation to the Klonopin increase. Continue q 15-minute checks for safety. Encourage individual, group, and milieu therapy. Encourage discharge to a sober living facility at the highest level of treatment to which he is willing to commit. (2) Major depression: (3) Suicidal ideation: (4) Anxiety: Status: Resolved (4) Anxiety: Status: Acute Involuntary Hold Information 96 Hour Hold: 96 Hour Involuntary Admission: No Attestations NPU Medical Necessity Statement*: Inpatient hospitalization is medically necessary, and the clinically appropriate intervention at this time. We will m onitor medications and titrate as indicated. He will be in the hospital for over two midnights. Likely length of stay two to four days. Coding Level of Care Code Acute Corporate Trainer for Giuseppe Guadarramad Diagnoses Substance abuse F19.10 Major depression F32.9 Suicidal ideation R45.851 Anxiety F41.9
--- NOTE | 2019-09-15 12:01 | PC.NURSE ---
PRN ZYPREXA ZYDIS ZYPREXA ZYDIS 5MG PO PER PATIENT C/O AGITATION/ANXIETY. WILL CONTINUE TO MONITOR FOR MEDICATION EFFECTIVENESS.
--- NOTE | 2019-09-15 13:00 | PC.NURSE ---
PRN ZYPREXA ZYDIS FOLLOW UP MEDICATION EFFECTIVE. NO FURTHER C/O AGITATION/ANXIETY.
[2019-09-15 14:00] VITALS: BP 127/85; PULSE 77; RESP 20; TEMP 36.4; O2SAT 96
[2019-09-15 20:02] VITALS: BP 113/74; PULSE 73; RESP 14; TEMP 36.9; O2SAT 96
[2019-09-15] MEDS: quetiapine 100 mg Tablet 200 MG PO (21:08)
[2019-09-16 06:00] VITALS: BP 120/83; PULSE 88; RESP 13; TEMP 36.8; O2SAT 92
[2019-09-16] MEDS: CLONazepam 0.5 mg Tablet PO (07:59)
[2019-09-16] MEDS: fluoxetine 20 mg Capsule 80 MG PO (07:59)
[2019-09-16] MEDS: hyDROXYzine 25 mg Capsule 50 MG PO (11:08)
--- NOTE | 2019-09-16 11:09 | PC.NURSE ---
PRN VISTARIL 50 MG GIVEN PO PER PT C/O STATED ANXIETY
[2019-09-16 13:56] VITALS: BP 119/75; PULSE 81; RESP 18; TEMP 36.9; O2SAT 97
--- NOTE | 2019-09-16 14:48 | PM.NPN ---
Subjective NPU Subjective: Interval history: Lon presents today still lobbying for the increase in the Klonopin, but agreeable that he will wait until his provider is available and willing to make a decision. We did discuss the fact that he has historically had improvement with Dewitt, and we discussed the risks, benefits, and alternatives of restarting the Dewitt, as an augmentation agent for his depression, and he understood and agreed to proceed as is documented in this note. He reports he is eating a little better and sleeping fine. But he continues to endorse the anxiety needing addressed. Mental Status Exam MSE Comments: This is a well-nourished, well-developed, white male, with limited dress, grooming, and eye contact. No abnormal movements except for resolving psychomotor retardation. More cooperative with exam in no acute distress. Speech was more normal rate and volume. Mood described as a little better; affect less subdued. Thought process, organized. Thought content: Denies suicidal or homicidal ideation. Insight and judgment are limited. Impulse control is limited but improving. Vitals/I&O/Wt Last Vital Signs Temp 98.3 F 09/16/19 17:06 Pulse 88 09/16/19 17:06 Resp 13 09/16/19 17:06 BP 120/83 09/16/19 17:06 Pulse Ox 92 09/16/19 17:06 Data NPU : 09/14/19 02:12 09/14/19 02:12 A&P Additional A&P Information (1) Substance abuse: (2) Major depression: (3) Suicidal ideation: (1) Substance abuse: This is a 44 year old, white male, with depression and active addiction, who presents requesting some medication changes and with vague reports of depression and suicidality. Continue current medication. Spoke to provide her and she agreed to have a conversation with patient at next appointment but had concerns about lack of information about some of the addiction issues that are clearly present given that he is a new patient to her. Continue q 15-minute checks for safety. Encourage individual, group, and milieu therapy. Encourage discharge to a sober living facility at the highest level of treatment to which he is willing to commit. Involuntary Hold Information 96 Hour Hold: 96 Hour Involuntary Admission: No Attestations NPU Medical Necessity Statement*: Inpatient hospitalization is medically necessary, and the clinically appropriate intervention at this time. We will monitor medications and titrate as indicated. He will be in the hospital for over two midnights. Likely length of stay 1-3 days. Coding Level of Care Code Acute Adoption Services Manager for Giuseppe Arredondo
[2019-09-16] MEDS: OLANZapine 5 mg ODT PO (16:09)
--- NOTE | 2019-09-16 16:10 | PC.NURSE ---
PRN ZYPREXA ZYDIS 5 MG GIVEN PO PER PT C/O STATED AGITATION.
--- NOTE | 2019-09-16 16:49 | P.DS_ITS ---
Diagnoses at Discharge Discharge Diagnosis (1) Substance abuse: Status: Acute (2) Major depression: Status: Acute Qualifiers: Active/Remission status: remission status unspecified Major depression recurrence: recurrent Qualified Code(s): F33.9 - Major depressive disorder, recurrent, unspecified (3) Suicidal ideation: Status: Resolved (4) Anxiety: Status: Acute Problem details: Patient leaving AMA. Reason for Visit Reason for Visit: PSYCH EVAL Brief History: Lon Curran is a 44 year old male who presented to the emergency room endorsing suicidal thoughts and not being well overall, feeling depressed, and somewhat vague, but unable to contract for safety. He was admitted to the neuropsychiatric unit for definitive treatment of those issues. Today he continues to endorse just not feeling well and feeling like he ?needed a break.?. He endorsed that he had been taking his medication, but he did not feel that it had been that effective. He endorsed a desire to have the Klonopin increased to three times a day from his current twice a day dosing. We were working to get verification of the exact doses and agreed to restart medications as we had verification. He endorsed that he was also taking Seroquel, Prozac, and other medication, but seemed to focus on the increase in the Klonopin. He was not a great historian but did review his last inpatient hospitalization with this junior underwriter and endorsed that there had not been substantive changes from that time. An excerpt of that note is included below. He endorsed past suicide attempts and feeling unsafe at this point. Date of Service: Jan 12, 2016 Chief Complaint: Suicidal and homicidal ideation HPI: Mr. Curran is a 40-year-old male who is no [facility] with previous diagnosis of depression and anxiety, who was admitted under a 96 hour hold for the expression of suicidal and homicidal ideation in the emergency department. Patient reports that he's been feeling increasingly frustrated and the transition between Medicaid programs which has resulted in not being able to get his medications. He is a patient over at the [facility] pain clinic, and also over at [facility], and he is prescribed mental health and pain medications. He states that he's been out of his medications for some weeks now because he is unable to afford the medicines without coverage. States that yesterday in his attempt to get his prescriptions, when he learned that there were not covered by his insurance, he became acutely frustrated and angry and expressed suicidal and homicidal ideation. As he presents today he denies that prior to this that he was experiencing any significant mood symptoms, but he has been fatigued with difficulty with sleep, associated with his chronic pain. He denies any psychotic symptoms, and denies any symptoms consistent with ramona, hypomania, PTSD. He frankly and emphatically denies any suicidal homicidal ideation today and is able to contract for safety in the community. Allergies: Coded Allergies: TRAMADOL (Verified Allergy, Intermediate, RASH, HIVES, 10/25/12) Active Meds: Current Hospital Medications: Medications (Trade) Dose Ordered Sig/Alix Route PRN Reason Start Time Stop Time Status Last Admin Dose Admin Lorazepam (Ativan Tab) 0.5 mg Q4H PRN PO FOR MILD ANXIETY 01/11/16 19:00 Lorazepam (Ativan Tab) 1 mg Q4H PRN PO FOR MODERATE ANXIETY 01/11/16 19:00 Lorazepam (Ativan Tab) 2 mg Q4H PRN PO FOR SEVERE ANXIETY 01/11/16 19:00 Lorazepam (Ativan Inj) 2 mg Q4H PRN IM For Severe Aggression 01/11/16 19:00 Haloperidol Lactate (Haldol Inj) 5 mg Q4H PRN IM Severe Aggression 01/11/16 19:00 Diphenhydramine HCl (Benadryl Inj) 50 mg ONCE PRN IV Severe Extrapyramidal Symptoms 01/11/16 19:00 Benztropine Mesylate (Cogentin Tab) 1 mg BID PRN PO Mild Extrapyramidal symptoms 01/11/16 19:00 Benztropine Mesylate (Cogentin Inj) 1 mg ONCE PRN IM Severe Extrapyramidal Symptom 01/11/16 19:00 Acetaminophen (Tylenol Tab) 650 mg Q4H PRN PO FOR MILD PAIN 01/11/16 19:00 01/11/16 21:29 Trazodone HCl (Trazodone) 50 mg BEDTIME PRN PO FOR SLEEP 01/11/16 19:00 01/11/16 21:28 Nicotine (Nicoderm Patch) 21 mg DAILY PRN TD FOR WITHDRAWAL 01/11/16 19:00 Nicotine Polacrilex (Nicotine Gum) 2 mg Q2H PRN PO Withdrawal 01/11/16 19:00 Haloperidol (Haldol Tab) 5 mg Q4H PRN PO For agitation 01/11/16 19:00 Lorazepam (Ativan Tab) 2 mg Q4H PRN PO FOR AGITATION 01/11/16 19:00 Fluoxetine HCl (Prozac) 50 mg DAILY PO 01/13/16 10:00 UNV Mirtazapine (Remeron) 15 mg BEDTIME PO 01/12/16 22:00 UNV Past Medical History Past Medical History: PAST PSYCHIATRIC HISTORY: -He states this is his first psychiatric hospitalization in almost 5 years -Receives outpatient mental health care at [facility] PAST FAMILY PSYCHIATRIC HISTORY: -Noncontributory SOCIAL HISTORY: -Currently lives with his son PAST MEDICAL HISTORY: -Chronic back pain Review of Systems Review of Systems: REVIEW OF SYSTEMS: The ROS is per HPI, all other systems were reviewed and were negative. Physical Exam Vital Signs: Vital Signs: Date Time Temp Pulse Resp B/P Pulse Ox O2 Delivery O2 Flow Rate FiO2 01/12/16 06:30 97.8 64 18 110/68 98 01/11/16 21:00 Room Air Physical Exam: PHYSICAL EXAMINATION: The patient was medically stabilized for admission to the NPU in the ED. MENTAL STATUS EXAMINATION: Vital Signs: Reviewed Appearance: Disheveled Behavior: Within normal limits Gait: Walks with the assistance of a cane Speech: Within normal limits Thought Process: Linear Thought Content: Denies any current suicidal or homicidal ideation, there is no paranoid or delusional ideation, and there are no hallucinations of any sensory modality Mood & Affect: Restricted but appropriate to content Insight & Judgment: Fair to good Alert & Oriented: ?3 Fund of Knowledge: Intact Language: Intact Recent & Remote Memory: Intact Data Labs reviewed by provider: UDS negative Alcohol 3 Result Diagram: 01/11/16175501/11/16 175 document embedded image Discharge Medical Necessity Statement: Initial presentation of the state is suggested that the patient will be hospitalized for at least 2 midnights, however upon assessment and evaluation, he will be discharged today. Discharge Date: Jan 12, 2016 Admitting Diagnoses: 1. Depression 2. Anxiety 3. Chronic pain Discharge Diagnoses: (1) Depression Status: Acute (2) Anxiety Status: Acute (3) Back pain Status: Acute Hospital Course Hospital Course Lon presented to the emergency room endorsing suicidal thoughts and homicidal thoughts, saying he just wished he were . He wanted to hurt anybody around him. He reports a history of anxiety and depression and outbursts with anger, panic disorder, and social phobia. He was admitted to the neuropsychiatric unit for definitive treatment of those issues. Upon admission, he was very vague about his symptoms, but very specific about the fact that he thought maybe increasing his Klonopin would help with those symptoms. During the hospitalization, we continued him on his regular psychiatric medication and after discussing the issue with his outpatient psychiatrist, we opted not to increase the medication and had him consider the options with her at his appointment in a couple of weeks. She was troubled with the fact that she did not know about his substance abuse issues as he had not been forthcoming with the current significance of them. He slowly acclimated to the individual, group, and milieu therapies provided and showed some mild improvement. We did not necessarily feel we had done all the work we needed to do, but he was clear that he wanted to be discharged. During the hospitalization, he had routine laboratory studies, which were within normal limits except for a few outliers. Also he had a general medical evaluation, which was also within normal limits and revealed no new acute processes. Discharge Summary At the time of discharge the patient denied all lethality, was absent psychosis, and mood and anxiety were well managed. The patient endorsed a plan to avoid all drugs of abuse and to follow-up with outpatient services, as recommended. He was evaluated and deemed absent credible lethality, and was not on a 96-hour hold and requested to be discharged so he was discharged. Involuntary Hold Information 96 Hour Hold: 96 Hour Involuntary Admission: No Mental Status Exam MSE Comments: This is a well-nourished, well-developed, white male, with limited dress, grooming, and eye contact. No abnormal movements except for improving psychomotor retardation. Cooperative with exam no acute distress. Speech was normal rate and volume. Mood described as much better; affect brighter. Thought process, organized. Thought content: patient denies suicidal or homicidal ideation. Insight and judgment are improving. Impulse control is limited. Discharge Data Vitals: Last Vital Signs Temp 98.5 F 09/16/19 17:06 Pulse 81 09/16/19 17:06 Resp 18 09/16/19 17:06 BP 119/75 09/16/19 17:06 Pulse Ox 97 07/21/20 17:06 Discharge Plan Discharge Patient Disposition: Home Condition: Stable Prescriptions: New lithium carbonate 300 mg Capsule 300 mg PO BEDTIME 30 Days Qty: 30 RF: 1 Continued fluoxetine 40 mg capsule 80 mg PO QAM Qty: 60 RF: 2 tizanidine 4 mg capsule 4 mg PO QID PRN (Reason: muscle spasticity) Qty: 120 RF: 1 Zyrtec 10 mg tablet 10 mg PO DAILY 30 Days Qty: 30 RF: 1 Seroquel 200 mg tablet 200 mg PO .HS 30 Days Qty: 30 RF: 1 buspirone 10 mg tablet 10 mg PO TID 30 Days Qty: 90 RF: 1 Discontinued clonazepam 0.5 mg tablet 0.5 mg PO BID Qty: 60 RF: 1 Discharge Orders: Discharge Order (Routine); Ordered 09/16/19 Ordered By: Misael Collins Referrals: [facility] [Outside] (They will call you with a follow up appointment with Arelis Nunn.) Jennifer Dick PA [Physician] - 09/23/19 8:45 am Bakari Hankins MD [Primary Care Provider] - Discharge Diet: Regular Discharge Activity: Resume usual activity Patient Instructions: Gracey (By mouth) Discharge Date/Time: 09/16/19 17:25 Discharge Attestations NPU Time Spent in Discharge Care*: less than 30 min Specific Discharge Activities: Specific discharge activities: educating patient, discussing with leather case finisher/social workers/dc planners, documenting/other paperwork and evaluating patient/reviewing data Status at Discharge: Cognitive status at discharge: cognitively intact , Behavioral status at discharge: cooperative , Coding Level of Care Code Acute Risk Control Representative for [facility] Fwd Diagnoses Substance abuse F19.10 Major depression F33.9 Active/Remission status: remission status unspecified Major depression recurrence: recurrent Suicidal ideation R45.851 Anxiety F41.9
[2019-09-16 17:06] VITALS: BP 119/75; PULSE 81; RESP 18; TEMP 36.9; O2SAT 97
[2019-09-16] MEDS: lithium carbonate 300 mg Capsule PO (17:11)
== END 2019-09-16 17:25 | disposition home or self-care (01) | DRG 885 ==
LOC: ER 02:10 → NP 05:24
PROVIDERS: Admitting Provider Psychiatry & Neurology Psychiatry; Emergency Provider Nurse Practitioner Family; PCP Family Medicine; Visit Provider Psychiatry & Neurology Psychiatry
DX: F33.9 Major depressive disorder, recurrent, unspecified (principal); R45.851 Suicidal ideations; F19.10 Other psychoactive substance abuse, uncomplicated; F41.9 Anxiety disorder, unspecified; R45.850 Homicidal ideations; F17.210 Nicotine dependence, cigarettes, uncomplicated
CPT/HCPCS: 12345; 80053; 80306; 80307; 81003; 84443; 85025; 93005; 96361; 96374; 96375; 99284; 99285; J1885; J7030

== ENCOUNTER 2019-09-18 02:51 | Observation (INO) | payer MEDICAID, SELFPAY ==
--- NOTE | 2019-09-18 03:02 | ED_ITS ---
HPI - Psych General: Stated Complaint: SI Time Seen by Provider: 09/18/19 02:52 Source: patient and EMS Mode of arrival: EMS Limitations: no limitations History of Present Illness: HPI Narrative: 44-year-old male who is well-known to the ER has a history of psychiatric issues along with anxiety. Patient states that he lost his clonazepam is very angry about it. He states that he has been increasingly depressed since losing it. He is requesting to go to the psychiatric unit. He denies any suicidal ideation at this time. Associated symptoms: Reports depression Review of Systems Const: Denies: fever(s), chills, body aches or change in appetite Eyes: Denies: blurry vision or eye discomfort ENMT: Denies: throat pain or dental pain Card: Denies: chest pain Resp: Denies: dyspnea GI: Denies: abdominal pain, nausea, vomiting or diarrhea : Denies: dysuria Musc: Denies: neck pain or back pain Skin/Breast: Denies: rash Neuro: Denies: headache(s) Psych: Reports: anxiety, depression and irritability González/Lymph: Denies: easy bruising All/Imm: Denies: urticaria PFSH ED PFSH: Medical History Chronic low back pain Disc displacement, cervical H/O degenerative disc disease Hx of fracture of ankle (~05/2018) LEFT ANKLE DR CAGLE IN [facility] 05/2018 Long-term use of high-risk medication Panic disorder [episodic paroxysmal anxiety] Patient is leaving [place]. Smoking Social phobia, unspecified Spondylolisthesis, cervical region Spondylosis without myelopathy or radiculopathy Surgical History Hx of cervical spine surgery (~08/03/16) 08/03/16 C6-7 ACDFF Family History Father , UNKNOWN CAUSE No problems noted. Denies family history of Diabetes Anesthesia complication Bleeding disorder Cancer Social History Smoking and tobacco status: current every day smoker cigarettes Packs smoked per day: 0.5 Years cigarettes smoked: 20 [ Other cigarette details: 6 CIGS DAY ] Alcohol intake: never Lives independently: Yes Marital status: Single Current occupational status: disabled History of recent travel: No Physical Exam Const: COMMON NORMALS: no acute distress, patient oriented x3 and healthy appearing HENMT: COMMON NORMALS: normocephalic and atraumatic HEAD & SCALP: normocephalic and atraumatic Eye: COMMON NORMALS: Equal, round and reactive pupils present and EOMs intact bilaterally PUPIL: Yes Equal, round and reactive pupils present Neck/C-Spine: COMMON NORMALS: full ROM and supple Chest: COMMONS NORMALS: normal inspection of the chest and normal palpation of entire chest wall Resp: COMMON NORMALS: normal respiratory effort, No retractions, No use of accessory muscles and clear to auscultation bilaterally AUSCULTATION: clear to auscultation bilaterally Cardio: COMMON NORMALS: regular rate, regular rhythm and No murmurs present (Cardio) RATE: regular rate RHYTHM: regular rhythm GI: COMMON NORMALS: Normal to inspection, nondistended, normoactive bowel sounds present, Soft to palpation, non-tender and no masses PALPATION: Yes Soft to palpation Extremity: COMMON NORMALS: normal to inspection and full ROM Neuro: COMMON NORMALS: patient oriented x3, moves all extremities and no focal motor deficits Psych: COMMON NORMALS: mental status grossly normal and cooperative MOOD & AFFECT: Yes anxious and Yes irritable Skin: COMMON NORMALS: no rashes or lesions noted and no wounds GENERAL SKIN EXAM: no rashes or lesions noted MDM - Psych MDM Narrative: Medical decision making narrative: Patient presents here with depression and is voluntarily wanting to be admitted. Patient spoke to Dr. Collins spoke to Dr. Collins as well and will admit patient for observation at this time. Patient has been stable while here. Lab Data: Labs: Lab Results 09/18/19 Range/Units 03:03 Urine Opiates Scre en Negative (Negative) ng/mL Ur Barbiturates Sc reen Negative (Negative) ng/mL Ur Phencyclidine S crn Negative (Negative) ng/mL Ur Amphetamines Sc reen Negative (Negative) ng/mL U Benzodiazepines Scrn Negative (Negative) ng/mL Urine Cocaine Scre en Negative (Negative) ng/mL U Marijuana (THC) Screen Positive H (Negative) ng/mL Discharge Plan Discharge Patient Disposition: Admitted As Inpatient Clinical Impression: Major depression Qualifiers: Major depression recurrence: recurrent Active/Remission status: remission status unspecified Qualified Code(s): F33.9 - Major depressive disorder, recurre nt, unspecified Condition: Stable Referrals: Bakari Hankins MD [Primary Care Provider] - Coding Level of Care Code ED Telesales Representative for g Fwd Exam Comprehensive
[2019-09-18] MEDS: LORazepam 2 mg Tablet PO (03:47)
[2019-09-18 04:25] LABS: Amphetamines Screen Urine Negative (Negative); Barbiturates Screen Urine Negative (Negative); Benzodiazepines Screen Urine Negative (Negative); Cocaine Screen Urine Negative (Negative); Opiate Screen Urine Negative (Negative); PCP Screen Urine Negative (Negative); THC Screen Urine Positive (Negative)
[2019-09-18 05:16] VITALS: BP 144/86; RESP 20; TEMP 36.8; O2SAT 97; BMI 22.0
[2019-09-18 05:16] LABS: Basophils # 0.1 10^3/uL (0.0-0.1); Basophils % 0.4 %; Eosinophils # 0.1 10^3/uL (0.0-0.8); Eosinophils % 0.4 %; Hematocrit 43.8 % (42.0-52.0); Hemoglobin 14.3 g/dL (11.7-16.6); Lymphocytes # 4.3 10^3/uL (0.8-4.8); Lymphocytes % 35.2 %; Mean Corpuscular HGB Conc 32.6 g/dL (30.0-36.0); Mean Corpuscular Hemoglobin 30.6 pg (28.0-34.0); Mean Corpuscular Volume 93.6 fL (80-94); Mean Platelet Volume 9.5 fL (7.4-10.4); Monocytes # 0.6 10^3/uL (0.2-0.9); Neutrophils # 7.21 10^3/uL (1.8-7.7); Neutrophils % 58.6 %; Nucleated Red Blood Cells % 0 %; Platelet Count 219 10^3/cmm (130-400); Red Blood Count 4.68 10^6/uL (4.1-5.3); Red Cell Distribution Width 13.4 % (12.1-15.1); White Blood Count 12.3 10^3/uL (4.0-10.0)
[2019-09-18 05:23] VITALS: BP 136/84; PULSE 96; RESP 20; O2SAT 97
[2019-09-18 05:33] LABS: Alanine Aminotransferase 17 U/L (0-41); Albumin Level 5.1 g/dL (3.5-5.2); Alcohol Level 171 mg/dL (0-10); Alkaline Phosphatase 71 IU/L (40-130); Anion Gap 19.8 (5-19); Aspartate Amino Transferase 22 U/L (0-40); Blood Urea Nitrogen 6 mg/dL (6-20); Calcium 9.8 mg/dL (8.5-10.5); Carbon Dioxide 23 mmol/L (22-29); Chloride 102 mmol/L (98-107); Glomerular Filtration Rate 92.5 mL/min (90-130); Glucose 115 mg/dL (65-115); Osmolality Calculated 289 mOsm/kg (285-295); Potassium 3.8 mmol/L (3.5-5.1); Sodium 141 mmol/L (136-145); Total Bilirubin 0.2 mg/dL (0.15-1.2); Total Protein 8.1 g/dL (6.6-8.7)
[2019-09-18 05:34] LABS: Acetaminophen < 5.0 ug/mL (10-30); Salicylate < 0.3 mg/dL (3-10)
[2019-09-18 06:00] VITALS: BP 104/71; PULSE 126; RESP 18; TEMP 36.5; O2SAT 97
--- NOTE | 2019-09-18 09:11 | PM.NHP ---
Providers/Chief Complaint Admitting Physician: Misael Collins MD Primary Care Provider: Bakari Hankins MD Chief Complaint: SI HPI NPU History of Present Illness Lon Curran is a 44 year old male Lon presents today after presenting to the emergency room the day of discharge reporting suicidal and homicidal thoughts, and inability to contract for safety, as well as depression, and so he was admitted to the neuropsychiatric unit for observation for these issues. Prior to seeing this marketing copywriter, he was noted to have snuck in contraband and had some pills both in his shoes and in his rectum. When he was seen, he was more or less unresponsive to questions, basically saying ?I don?t know? and denying that this has a malingering element to it. Prior to discharge, the last thing I had said to him was ?are you sure you?re actually ready to be discharged, and that we are not going to see you back in a day or so?, and he assured us that would not happen and he did not even make it five or six hours. He reported that his significant other had given him his medication, but not his Klonopin, but denied that this had anything to do with the Klonopin. He agreed that we would be able to speak to her regarding where this medication is, because it is illegal for anyone other than the designated person that it is prescribed to, taking a controlled substance. Additionally, there were concerns that we discussed about this being just a place for him to stay. He told multiple different stories that they were splitting up, but then saying that they have a kid together, and he could live there, then changing his story that he can stay with his mom, so he was hard to arouse, but was telling different versions of different stories. In addition to that, we were contacted by the police surrounding wanting to have a conversation with him, knowing he was here, and saying they needed to interview him about something, so there may be another reason why he is avoiding being out of the hospital. I discussed that I would give him the next 24 hours, but the likelihood is that barring that we have a sound clinical reason to continue his hospitalization, that there would be a likely discharge tomorrow. Excerpt from his last hospitalization is included below, as there have been no substantive changes to his history. . Meds NPU Home Medications Medication Instructions Recorded Confirmed Last Taken Type tizanidine 4 mg capsule 4 mg PO QID PRN #120 cap 07/29/19 09/05/19 Unknown Rx fluoxetine 40 mg capsule 80 mg PO QAM #60 cap 09/04/19 09/14/19 Unknown Rx buspirone 10 mg PO TID 30 Days #90 tab 09/16/19 Unknown Rx cetirizine [Zyrtec] 10 mg PO DAILY 30 Days #30 tab 09/16/19 Unknown Rx clonazepam 0.5 mg PO BID 30 Days #60 tab 09/16/19 Unknown Rx lithium carbonate 300 mg PO BEDTIME 30 Days #30 cap 09/16/19 Unknown Rx quetiapine [Seroquel] 200 mg PO .HS 30 Days #30 tab 09/16/19 Unknown Rx Allergies Allergy/AdvReac Type Severity Reaction Status Date / Time tramadol Allergy HIVES Verified 07/29/19 08:13 PFSH NPU PFSH: Medical History Chronic low back pain Disc displacement, cervical H/O degenerative disc disease Hx of fracture of ankle (~05/2018) LEFT ANKLE DR CAGLE IN [facility] 05/2018 Long-term use of high-risk medication Panic disorder [episodic paroxysmal anxiety] Patient is leaving [place]. Smoking Social phobia, unspecified Spondylolisthesis, cervical region Spondylosis without myelopathy or radiculopathy Surgical History Hx of cervical spine surgery (~08/03/16) 08/03/16 C6-7 ACDFF Family History Father , UNKNOWN CAUSE No problems noted. Denies family history of Diabetes Anesthesia complication Bleeding disorder Cancer Social History Smoking and tobacco status: current every day smoker cigarettes Packs smoked per day: 0.5 Years cigarettes smoked: 20 [ Other cigarette details: 6 CIGS DAY ] Alcohol intake: never Lives independently: Yes Marital status: Single Current occupational status: disabled History of recent travel: No Mental Status Exam MSE Comments: This is a well-nourished, well-developed, white male, with limited dress, grooming, and eye contact. No abnormal movements except for significant psychomotor retardation. Limited cooperation with exam in mild to moderate distress. Speech was decreased rate and volume and limited. Mood described as depressed; affect subdued. Thought process, organized. Thought content: patient endorsed suicidal and homicidal ideation, but not clear that his affect supports that. Additionally, we discussed the fact that with his level of awareness, acting on aggressive behaviors towards others, it is a premeditated crime. Attention and concentration were limited, and memory is unreliable, but none were formally tested. He is alert and oriented times three. Insight and judgment are impaired. Impulse control is impaired. Vitals/I&O/Wt Last Vital Signs Temp 97.7 F 09/18/19 06:00 Pulse 126 H 09/18/19 06:00 Resp 15 09/18/19 20:34 BP 104/71 09/18/19 06:00 Pulse Ox 97 09/18/19 06:00 Weight last 48 hrs Weight 65.771 kg Data NPU : 09/18/19 04:50 09/18/19 04:50 A&P Assessment and plan (1) Substance abuse: Status: Acute (2) Major depression: Status: Acute Qualifiers: Active/Remission status: remission status unspecified Major depression recurrence: recurrent Qualified Code(s): F33.9 - Major depressive disorder, recurrent, unspecified (3) Anxiety: Status: Acute (4) Outbursts of anger: Status: Acute (5) Malingering: Status: Acute Additional A&P Information This is a 44 year old, white male, with active addiction and question of malingering with reported depression, suicidality, and homicidal ideation. Continue current medication except will not administer Klonopin. Encourage individual, group, and milieu therapy. Q 15-miniute checks for safety. Will likely have a therapeutic discharge to home tomorrow. Involuntary Hold Information 96 Hour Hold: 96 Hour Involuntary Admission: No Attestations NPU Medical Necessity Statement*: Inpatient hospitalization is medically necessary, and the clinically appropriate intervention at this time. We will monitor medication and make adjustment, as indicated. It is unclear at this point whether he will be in the hospital for two midnights. We will get collateral information and make a decision about that as we move forward. Likely length of stay one to three days Coding Level of Care Code Acute Technical Account Manager for [facility] Diagnoses Substance abuse F19.10 Major depression F33.9 Active/Remission status: remission status unspecified Major depression recurrence: recurrent Anxiety F41.9 Outbursts of anger R45.4 Malingering Z76.5
--- NOTE | 2019-09-18 11:37 | PC.NURSE ---
see event report.
--- NOTE | 2019-09-18 11:38 | PC.NURSE ---
PT NOTE: PATIENT GAVE STAFF TWO SMASHED CAPSULES OUT OF HIS SLIPPER, IDENTIFIED BY UNIT MANAGEMENT TO BE LITHIUM 300 MG. PATIENT WAS THEN GIVEN A FULL BODY SEARCH AND SLIPPERS WERE PLACED IN PERSONAL BELONGINGS.
[2019-09-18 14:00] VITALS: RESP 18
[2019-09-18 20:34] VITALS: RESP 15
[2019-09-18] MEDS: hyDROXYzine 25 mg Capsule 50 MG PO (21:15)
[2019-09-18] MEDS: trazodone 50 mg Tablet PO (21:15)
--- NOTE | 2019-09-19 04:21 | PC.NURSE ---
Pt given PRN trazodone and vistaril at HS per request. no behavior issues noted.
[2019-09-19 06:00] VITALS: BP 129/86; PULSE 67; RESP 22; TEMP 36.9; O2SAT 93
--- NOTE | 2019-09-19 12:14 | P.DS_ITS ---
Diagnoses at Discharge Discharge Diagnosis (1) Substance abuse: Status: Acute (2) Major depression: Status: Acute Qualifiers: Active/Remission status: remission status unspecified Major depression recurrence: recurrent Qualified Code(s): F33.9 - Major depressive disorder, recurrent, unspecified (3) Anxiety: Status: Acute Problem details: Patient leaving AMA. (4) Outbursts of anger: Status: Acute Problem details: Patient is leaving AMA. (5) Malingering: Status: Acute (6) Benzodiazepine abuse: Status: Acute Reason for Visit Reason for Visit: SI Brief History: History of Present Illness Lon Curran is a 44 year old male Lon presents today after presenting to the emergency room the day of discharge reporting suicidal and homicidal thoughts, and inability to contract for safety, as well as depression, and so he was admitted to the neuropsychiatric unit for observation for these issues. Prior to seeing this global technical writer, he was noted to have snuck in contraband and had some pills both in his shoes and in his rectum. When he was seen, he was more or less unresponsive to questions, basically saying ?I don?t know? and denying that this has a malingering element to it. Prior to discharge, the last thing I had said to him was ?are you sure you?re actually ready to be discharged, and that we are not going to see you back in a day or so?, and he assured us that would not happen and he did not even make it five or six hours. He reported that his significant other had given him his medication, but not his Klonopin, but denied that this had anything to do with the Klonopin. He agreed that we would be able to speak to her regarding where this medication is, because it is illegal for anyone other than the designated person that it is prescribed to, taking a controlled substance. Additionally, there were concerns that we discussed about this being just a place for him to stay. He told multiple different stories that they were splitting up, but then saying that they have a kid together, and he could live there, then changing his story that he can stay with his mom, so he was hard to arouse, but was telling different versions of different stories. In addition to that, we were contacted by the police surrounding wanting to have a conversation with him, knowing he was here, and saying they needed to interview him about something, so there may be another reason why he is avoiding being out of the hospital. I discussed that I would give him the next 24 hours, but the likelihood is that barring that we have a sound clinical reason to continue his hospitalization, that there would be a likely discharge tomorrow. Excerpt from his last hospitalization is included below, as there have been no substantive changes to his history. [place] [facility] [place]: History of Present Illness Lon Curran is a 44 year old male Lon presented to the emergency room endorsing suicidal thoughts and not being well overall, feeling depressed, and somewhat vague, but unable to contract for safety. He was admitted to the neuropsychiatric unit for definitive treatment of those issues. Today he continues to endorse just not feeling well and feeling like he ?needed a break.?. He endorsed that he had been taking his medication, but he did not feel that it had been that effective. He endorsed a desire to have the Klonopin increased to three times a day from his current twice a day dosing. We were working to get verification of the exact doses and agreed to restart medications as we had verification. He endorsed that he was also taking Seroquel, Prozac, and other medication, but seemed to focus on the increase in the Klonopin. He was not a great historian but did review his last inpatient hospitalization with this global technical writer and endorsed that there had not been substantive changes from that time. An excerpt of that note is included below. He endorsed past suicide attempts and feeling unsafe at this point. Date of Service: Jan 12, 2016 Chief Complaint: Suicidal and homicidal ideation HPI: Mr. Curran is a 40-year-old male who is no [facility] with previous diagnosis of depression and anxiety, who was admitted under a 96 hour hold for the expression of suicidal and homicidal ideation in the emergency department. Patient reports that he's been feeling increasingly frustrated and the transition between Medicaid programs which has resulted in not being able to get his medications. He is a patient over at the [facility] pain clinic, and also over at [facility], and he is prescribed mental health and pain medications. He states that he's been out of his medications for some weeks now because he is unable to afford the medicines without coverage. States that yesterday in his attempt to get his prescriptions, when he learned that there were not covered by his insurance, he became acutely frustrated and angry and expressed suicidal and homicidal ideation. As he presents today he denies that prior to this that he was experiencing any significant mood symptoms, but he has been fatigued with difficulty with sleep, associated with his chronic pain. He denies any psychotic symptoms, and denies any symptoms consistent with ramona, hypomania, PTSD. He frankly and emphatically denies any suicidal homicidal ideation today and is able to contract for safety in the community. Allergies: Coded Allergies: TRAMADOL (Verified Allergy, Intermediate, RASH, HIVES, 10/25/12) Active Meds: Current Hospital Medications: Medications (Trade) Dose Ordered Sig/Alix Route PRN Reason Start Time Stop Time Status Last Admin Dose Admin Lorazepam (Ativan Tab) 0.5 mg Q4H PRN PO FOR MILD ANXIETY 01/11/16 19:00 Lorazepam (Ativan Tab) 1 mg Q4H PRN PO FOR MODERATE ANXIETY 01/11/16 19:00 Lorazepam (Ativan Tab) 2 mg Q4H PRN PO FOR SEVERE ANXIETY 01/11/16 19:00 Lorazepam (Ativan Inj) 2 mg Q4H PRN IM For Severe Aggression 01/11/16 19:00 Haloperidol Lactate (Haldol Inj) 5 mg Q4H PRN IM Severe Aggression 01/11/16 19:00 Diphenhydramine HCl (Benadryl Inj) 50 mg ONCE PRN IV Severe Extrapyramidal Symptoms 01/11/16 19:00 Benztropine Mesylate (Cogentin Tab) 1 mg BID PRN PO Mild Extrapyramidal symptoms 01/11/16 19:00 Benztropine Mesylate (Cogentin Inj) 1 mg ONCE PRN IM Severe Extrapyramidal Symptom 01/11/16 19:00 Acetaminophen (Tylenol Tab) 650 mg Q4H PRN PO FOR MILD PAIN 01/11/16 19:00 01/11/16 21:29 Trazodone HCl (Trazodone) 50 mg BEDTIME PRN PO FOR SLEEP 01/11/16 19:00 01/11/16 21:28 Nicotine (Nicoderm Patch) 21 mg DAILY PRN TD FOR WITHDRAWAL 01/11/16 19:00 Nicotine Polacrilex (Nicotine Gum) 2 mg Q2H PRN PO Withdrawal 01/11/16 19:00 Haloperidol (Haldol Tab) 5 mg Q4H PRN PO For agitation 01/11/16 19:00 Lorazepam (Ativan Tab) 2 mg Q4H PRN PO FOR AGITATION 01/11/16 19:00 Fluoxetine HCl (Prozac) 50 mg DAILY PO 01/13/16 10:00 UNV Mirtazapine (Remeron) 15 mg BEDTIME PO 01/12/16 22:00 UNV Past Medical History Past Medical History: PAST PSYCHIATRIC HISTORY: -He states this is his first psychiatric hospitalization in almost 5 years -Receives outpatient mental health care at [facility] PAST FAMILY PSYCHIATRIC HISTORY: -Noncontributory SOCIAL HISTORY: -Currently lives with his son PAST MEDICAL HISTORY: -Chronic back pain Review of Systems Review of Systems: REVIEW OF SYSTEMS: The ROS is per HPI, all other systems were reviewed and were negative. Physical Exam Vital Signs: Vital Signs: Date Time Temp Pulse Resp B/P Pulse Ox O2 Delivery O2 Flow Rate FiO2 01/12/16 06:30 97.8 64 18 110/68 98 01/11/16 21:00 Room Air Physical Exam: PHYSICAL EXAMINATION: The patient was medically stabilized for admission to the NPU in the ED. MENTAL STATUS EXAMINATION: Vital Signs: Reviewed Appearance: Disheveled Behavior: Within normal limits Gait: Walks with the assistance of a cane Speech: Within normal limits Thought Process: Linear Thought Content: Denies any current suicidal or homicidal ideation, there is no paranoid or delusional ideation, and there are no hallucinations of any sensory modality Mood & Affect: Restricted but appropriate to content Insight & Judgment: Fair to good Alert & Oriented: ?3 Fund of Knowledge: Intact Language: Intact Recent & Remote Memory: Intact Data Labs reviewed by provider: UDS negative Alcohol 3 Result Diagram: 01/11/16 1756 01/11/16 175 document embedded image Discharge Medical Necessity Statement: Initial presentation of the state is suggested that the patient will be h ospitalized for at least 2 midnights, however upon assessment and evaluation, he will be discharged today. Discharge Date: Jan 12, 2016 Admitting Diagnoses: 1. Depression 2. Anxiety 3. Chronic pain Discharge Diagnoses: (1) Depression Status: Acute (2) Anxiety Status: Acute (3) Back pain Status: Acute Hospital Course Hospital Course Lon presented to the emergency room endorsing that he is unclear as to what happened after discharge, but he reports that he was feeling some kind of way and got angry with his family. He reports that his girlfriend gave him all of his medications but did not give him the Klonopin. He was endorsing to the ER doctor that he was feeling certain that if he were discharged, that either he would get hurt or someone else would get hurt, and he was really pushing that narrative. He was ultimately admitted to the neuropsychiatric unit for definitive treatment of those issues, but on an observational status. He ended up having contraband in his shoes and he may have had some in his rectum. Ultimately, when we met, he denied any issues in regard to him overusing his Klonopin, although we agreed that we would not refill his Klonopin and would not administer it, given that he could not give us any information on where it is. Ultimately, he tried to say that it is at his home, but we spoke with his significant other and his mom, and it is a high likelihood that he is the reason why the medication is gone, along with likely abusing other things. He was not very engaged the first day he was met and the very next morning he endorsed a desire to leave and was advised that the police had contacted us and wanted to speak to him on some specific matters. I advised him that it is likely in relation to the property destruction at his mother?s house. He was more alert and demanded to be discharged. During the hospitalization, the patient had routine laboratory studies which were within normal limits, except for a few outliers. Additionally, he had a general medical evaluation which was within normal limits and revealed no new acute processes. Discharge Summary At the time of discharge the patient denied all lethality, was absent psychosis, and mood and anxiety were well managed. The patient endorsed a plan to avoid all drugs of abuse and to follow-up with outpatient services, as recommended. He was evaluated and deemed to be absent credible lethality, and was not on a 96-hour hold, and so he was allowed to discharge. Involuntary Hold Information 96 Hour Hold: 96 Hour Involuntary Admission: No Mental Status Exam MSE Comments: This is a well-nourished, well-developed, white male, with limited dress, grooming, and eye contact. No abnormal movements except for improving psychomotor retardation. Cooperative with exam no acute distress. Speech was decreased rate and volume. Mood described as much better; affect subdued. Thought process, organized. Thought content: patient denies suicidal or homicidal ideation. Insight and judgment are improving. Impulse control is limited. Discharge Data Vitals: Last Vital Signs Temp 98.4 F 09/19/19 06:00 Pulse 67 09/19/19 06:00 Resp 22 H 09/19/19 06:00 BP 129/86 09/19/19 06:00 Pulse Ox 93 09/19/19 06:00 Discharge Plan Discharge Patient Disposition: Home Condition: Stable Prescriptions: Continued fluoxetine 40 mg capsule 80 mg PO QAM Qty: 60 RF: 2 tizanidine 4 mg capsule 4 mg PO QID PRN (Reason: muscle spasticity) Qty: 120 RF: 1 lithium carbonate 300 mg Capsule 300 mg PO BEDTIME 30 Days Qty: 30 RF: 1 Zyrtec 10 mg tablet 10 mg PO DAILY 30 Days Qty: 30 RF: 1 Seroquel 200 mg tablet 200 mg PO .HS 30 Days Qty: 30 RF: 1 buspirone 10 mg tablet 10 mg PO TID 30 Days Qty: 90 RF: 1 Discontinued clonazepam 0.5 mg tablet 0.5 mg PO BID 30 Days Qty: 60 RF: 0 Discharge Orders: Discharge Order (Routine); Ordered 09/19/19 Ordered By: Miasel Collins Referrals: Arelis Nunn PMHNP [Staff Physician] - 10/01/19 8:45 am (NPU Follow Up) Jennifer Dick PA [Physician] - 09/23/19 8:45 am (2 Month Follow Up) Bakari Hankins MD [Primary Care Provider] - Discharge Diet: Regular Discharge Activity: Resume usual activity Patient Instructions: Generalized Anxiety Disorder, Methamphetamine Abuse (DC) Discharge Date/Time: 09/19/19 12:37 Discharge Attestations NPU Time Spent in Discharge Care*: less than 30 min Specific Discharge Activities: Specific discharge activities: educating patient, discussing with gearcase assembler/social workers/dc planners, documenting/other paperwork and evaluating patient/reviewing data Status at Discharge: Cognitive status at discharge: cognitively intact , Behavioral status at discharge: cooperative , Coding Level of Care Code Acute Head Of Research & Insights for [facility] Diagnoses Substance abuse F19.10 Major depression F33.9 Active/Remission status: remission status unspecified Major depression recurrence: recurrent Anxiety F41.9 Outbursts of anger R45.4 Malingering Z76.5 Benzodiazepine abuse F13.10
[2019-09-19 12:15] VITALS: BP 129/86; PULSE 67; RESP 22; TEMP 36.9; O2SAT 93
[2019-09-19 12:17] VITALS: BP 129/86; PULSE 67; RESP 22; TEMP 36.9; O2SAT 93
== END 2019-09-19 12:37 | disposition home or self-care (01) ==
LOC: ER 04:47 → NP 06:09
PROVIDERS: Emergency Medicine; Admitting Provider Psychiatry & Neurology Psychiatry; PCP Family Medicine; Visit Provider Psychiatry & Neurology Psychiatry
DX: F19.10 Other psychoactive substance abuse, uncomplicated (principal); F33.9 Major depressive disorder, recurrent, unspecified; F41.9 Anxiety disorder, unspecified; R45.4 Irritability and anger; Z76.5 Malingerer [conscious simulation]; F13.10 Sedative, hypnotic or anxiolytic abuse, uncomplicated
CPT/HCPCS: 12345; 80053; 80306; 80307; 85025; 99284; 99285; G0378

== ENCOUNTER 2019-09-25 01:18 | Observation (INO) | payer MEDICAID, SELFPAY ==
[2019-09-25 01:19] VITALS: BP 144/85; PULSE 84; RESP 16; TEMP 36.9; O2SAT 94; BMI 20.7
--- NOTE | 2019-09-25 01:22 | ED_ITS ---
HPI - Psych General: Chief Complaint: Psychiatric Symptoms Stated Complaint: SI Time Seen by Provider: 09/25/19 01:19 Source: patient and EMS Mode of arrival: EMS Limitations: no limitations History of Present Illness: HPI Narrative: 44-year-old male who well-known to the ER states he has been having suicidal thoughts along with homicidal thoughts. He states he is feels agitated and angry all the time. Patient was recently seen here in the psych unit. He denies any worsening improving factors. Associated symptoms: Reports depression and homicidal ideation Review of Systems Const: Denies: fever(s), chills, body aches or change in appetite Eyes: Denies: blurry vision or eye discomfort ENMT: Denies: throat pain or dental pain Card: Denies: chest pain Resp: Denies: dyspnea GI: Denies: abdominal pain, nausea, vomiting or diarrhea : Denies: dysuria Musc: Denies: neck pain or back pain Skin/Breast: Denies: rash Neuro: Denies: headache(s) Psych: Reports: depression, irritability and homicidal ideation González/Lymph: Denies: easy bruising All/Imm: Denies: urticaria PFSH ED PFSH: Medical History (Updated 09/25/19 @ 03:16 by Justice Perez MD) Chronic low back pain Disc displacement, cervical H/O degenerative disc disease Hx of fracture of ankle (~05/2018) LEFT ANKLE DR CAGLE IN [facility] 05/2018 Long-term use of high-risk medication Panic disorder [episodic paroxysmal anxiety] Patient is leaving [facility]. Smoking Social phobia, unspecified Spondylolisthesis, cervical region Spondylosis without myelopathy or radiculopathy Surgical History Hx of cervical spine surgery (~08/03/16) 08/03/16 C6-7 ACDFF Family History Father , UNKNOWN CAUSE No problems noted. Denies family history of Diabetes Anesthesia complication Bleeding disorder Cancer Social History Smoking and tobacco status: current every day smoker cigarettes Packs smoked per day: 0.5 Years cigarettes smoked: 20 [ Other cigarette details: 6 CIGS DAY ] Alcohol intake: never Lives independently: Yes Marital status: Single Current occupational status: disabled History of recent travel: No Physical Exam Const: COMMON NORMALS: no acute distress, patient oriented x3 and healthy appearing HENMT: COMMON NORMALS: normocephalic and atraumatic HEAD & SCALP: normocephalic and atraumatic Eye: COMMON NORMALS: Equal, round and reactive pupils present and EOMs intact bilaterally PUPIL: Yes Equal, round and reactive pupils present Neck/C-Spine: COMMON NORMALS: full ROM and supple Chest: COMMONS NORMALS: normal inspection of the chest and normal palpation of entire chest wall Resp: COMMON NORMALS: normal respiratory effort, No retractions, No use of accessory muscles and clear to auscultation bilaterally AUSCULTATION: clear to auscultation bilaterally Cardio: COMMON NORMALS: regular rate, regular rhythm and No murmurs present (Cardio) RATE: regular rate RHYTHM: regular rhythm GI: COMMON NORMALS: Normal to inspection, nondistended, normoactive bowel sounds present, Soft to palpation, non-tender and no masses PALPATION: Yes Soft to palpation Extremity: COMMON NORMALS: normal to inspection and full ROM Neuro: COMMON NORMALS: patient oriented x3, moves all extremities and no focal motor deficits Psych: COMMON NORMALS: cooperative MOOD & AFFECT: Yes depressed mood and Yes irritable Skin: COMMON NORMALS: no rashes or lesions noted and no wounds GENERAL SKIN EXAM: no rashes or lesions noted MDM - Psych MDM Narrative: Medical decision making narrative: Lon presents here with homicidal thoughts. Patient was seen by Dr. Collins and will admit for observation. Patient has been stable while here. Lab Data: Labs: Lab Results 09/25/19 09/25/19 09/25/19 Range/Units 01:30 01:39 01:39 WBC 13.0 H (4.0-10.0) 10^3/ uL RBC 4.39 (4.1-5.3) 10^6/u L Hgb 13.6 (11.7-16.6) g/dL Hct 40.7 L (42.0-52.0) % MCV 92.7 (80-94) fL MCH 31.0 (28.0-34.0) pg MCHC 33.4 (30.0-36.0) g/dL RDW 13.3 (12.1-15.1) % Plt Count 188 (130-400) 10^3/c mm MPV 9.7 (7.4-10.4) fL Neut % (Auto) 58.8 % Lymph % (Auto) 35.3 % Dickens % (Auto) 4.8 % Eos % (Auto) 0.4 % Baso % (Auto) 0.4 % Neut # (Auto) 7.64 (1.8-7.7) 10^3/u L Lymph # (Auto) 4.6 (0.8-4.8) 10^3/u L Dickens # (Auto) 0.6 (0.2-0.9) 10^3/u L Eos # (Auto) 0.1 (0.0-0.8) 10^3/u L Baso # (Auto) 0.1 (0.0-0.1) 10^3/u L Nucleated RBC % (a uto) 0 % Nucleated RBCs # 0.0 /100WBC Sodium 138 (136-145) mmol/L Potassium 3.5 (3.5-5.1) mmol/L Chloride 100 (98-107) mmol/L Carbon Dioxide 25 (22-29) mmol/L Anion Gap 16.5 (5-19) BUN 8 (6-20) mg/dL Creatinine 0.7 (0.7-1.2) mg/dL GFR Calculation 123.7 (90-130) mL/min Glucose 96 (65-115) mg/dL Calculated Osmolal ity 282 L (285-295) mOsm/k g Calcium 8.7 (8.5-10.5) mg/dL Total Bilirubin 0.2 (0.15-1.2) mg/dL AST 22 (0-40) U/L ALT 20 (0-41) U/L Alkaline Phosphata se 71 (40-130) IU/L Total Protein 8.0 (6.6-8.7) g/dL Albumin 4.8 (3.5-5.2) g/dL Globulin 3.2 (1.3-4.6) g/dL Salicylates < 0.3 L (3-10) mg/dL Urine Opiates Scre en Negative (Negative) ng/mL Acetaminophen < 5.0 L (10-30) ug/mL Ur Barbiturates Sc reen Negative (Negative) ng/mL Ur Phencyclidine S crn Negative (Negative) ng/mL Ur Amphetamines Sc reen Negative (Negative) ng/mL U Benzodiazepines Scrn Negative (Negative) ng/mL [place] (0.6-1.2) mmol/L Urine Cocaine Scre en Negative (Negative) ng/mL U Marijuana (THC) Screen Positive H (Negative) ng/mL Ethyl Alcohol 161 H (0-10) mg/dL 09/25/19 Range/Units 01:39 WBC (4.0-10.0) 10^3/ uL RBC (4.1-5.3) 10^6/u L Hgb (11.7-16.6) g/dL Hct (42.0-52.0) % MCV (80-94) fL MCH (28.0-34.0) pg MCHC (30.0-36.0) g/dL RDW (12.1-15.1) % Plt Count (130-400) 10^3/c mm MPV (7.4-10.4) fL Neut % (Auto) % Lymph % (Auto) % Dickens % (Auto) % Eos % (Auto) % Baso % (Auto) % Neut # (Auto) (1.8-7.7) 10^3/u L Lymph # (Auto) (0.8-4.8) 10^3/u L Dickens # (Auto) (0.2-0.9) 10^3/u L Eos # (Auto) (0.0-0.8) 10^3/u L Baso # (Auto) (0.0-0.1) 10^3/u L Nucleated RBC % (a uto) % Nucleated RBCs # /100WBC Sodium (136-145) mmol/L Potassium (3.5-5.1) mmol/L Chloride (98-107) mmol/L Carbon Dioxide (22-29) mmol/L Anion Gap (5-19) BUN (6-20) mg/dL Creatinine (0.7-1.2) mg/dL GFR Calculation (90-130) mL/min Glucose (65-115) mg/dL Calculated Osmolal ity (285-295) mOsm/k g Calcium (8.5-10.5) mg/dL Total Bilirubin (0.15-1.2) mg/dL AST (0-40) U/L ALT (0-41) U/L Alkaline Phosphata se (40-130) IU/L Total Protein (6.6-8.7) g/dL Albumin (3.5-5.2) g/dL Globulin (1.3-4.6) g/dL Salicylates (3-10) mg/dL Urine Opiates Scre en (Negative) ng/mL Acetaminophen (10-30) ug/mL Ur Barbiturates Sc reen (Negative) ng/mL Ur Phencyclidine S crn (Negative) ng/mL Ur Amphetamines Sc reen (Negative) ng/mL U Benzodiazepines Scrn (Negative) ng/mL [place] 0.1 L (0.6-1.2) mmol/L Urine Cocaine Scre en (Negative) ng/mL U Marijuana (THC) Screen (Negative) ng/mL Ethyl Alcohol (0-10) mg/dL Discharge Plan Discharge Patient Disposition: Admitted As Inpatient Clinical Impression: Homicidal thoughts Condition: Stable Referrals: Bakari Hankins MD [Primary Care Provider] - Coding Level of Care Code ED Ski Lift Operator for Chg Fwd Exam Comprehensive
[2019-09-25 01:47] LABS: Basophils # 0.1 10^3/uL (0.0-0.1); Basophils % 0.4 %; Eosinophils # 0.1 10^3/uL (0.0-0.8); Eosinophils % 0.4 %; Hematocrit 40.7 % (42.0-52.0); Hemoglobin 13.6 g/dL (11.7-16.6); Lymphocytes # 4.6 10^3/uL (0.8-4.8); Lymphocytes % 35.3 %; Mean Corpuscular HGB Conc 33.4 g/dL (30.0-36.0); Mean Corpuscular Volume 92.7 fL (80-94); Mean Platelet Volume 9.7 fL (7.4-10.4); Monocytes # 0.6 10^3/uL (0.2-0.9); Monocytes % 4.8 %; Neutrophils # 7.64 10^3/uL (1.8-7.7); Neutrophils % 58.8 %; Nucleated Red Blood Cells % 0 %; Platelet Count 188 10^3/cmm (130-400); Red Blood Count 4.39 10^6/uL (4.1-5.3); Red Cell Distribution Width 13.3 % (12.1-15.1)
[2019-09-25 02:05] LABS: Alanine Aminotransferase 20 U/L (0-41); Albumin Level 4.8 g/dL (3.5-5.2); Alcohol Level 161 mg/dL (0-10); Alkaline Phosphatase 71 IU/L (40-130); Anion Gap 16.5 (5-19); Aspartate Amino Transferase 22 U/L (0-40); Blood Urea Nitrogen 8 mg/dL (6-20); Calcium 8.7 mg/dL (8.5-10.5); Carbon Dioxide 25 mmol/L (22-29); Chloride 100 mmol/L (98-107); Globulin 3.2 g/dL (1.3-4.6); Glomerular Filtration Rate 123.7 mL/min (90-130); Glucose 96 mg/dL (65-115); Osmolality Calculated 282 mOsm/kg (285-295); Potassium 3.5 mmol/L (3.5-5.1); Sodium 138 mmol/L (136-145); Total Bilirubin 0.2 mg/dL (0.15-1.2)
[2019-09-25 02:20] LABS: Lithium 0.1 mmol/L (0.6-1.2)
[2019-09-25 02:37] LABS: Acetaminophen < 5.0 ug/mL (10-30); Salicylate < 0.3 mg/dL (3-10)
[2019-09-25 02:58] LABS: Amphetamines Screen Urine Negative (Negative); Barbiturates Screen Urine Negative (Negative); Benzodiazepines Screen Urine Negative (Negative); Cocaine Screen Urine Negative (Negative); Opiate Screen Urine Negative (Negative); PCP Screen Urine Negative (Negative); THC Screen Urine Positive (Negative)
[2019-09-25 03:39] VITALS: BP 148/72; PULSE 72; RESP 18; O2SAT 97
[2019-09-25 04:04] VITALS: BP 131/85; PULSE 71; RESP 19; TEMP 36.7; O2SAT 94
[2019-09-25 06:00] VITALS: BP 131/85; PULSE 71; RESP 19; TEMP 36.7; O2SAT 94
[2019-09-25] MEDS: fluoxetine 20 mg Capsule 80 MG PO (06:20)
[2019-09-25] MEDS: CLONazepam 0.5 mg Tablet PO (06:20)
[2019-09-25] MEDS: BuSPIRONE 10 mg Tablet PO ×3 (08:17→21:22)
[2019-09-25] MEDS: cetirizine 10 mg Tablet PO (08:17)
--- NOTE | 2019-09-25 09:58 | PM.NHP ---
Providers/Chief Complaint Admitting Physician: Misael Collins MD Primary Care Provider: Bakari Hankins MD Chief Complaint: SI HPI NPU History of Present Illness Lon Curran is a 44 year old male who presented to the emergency room reporting that he was having thoughts to kill people. He was endorsing depression and was brought in on observation for definitive treatment of those issues. Today he presents with his medication bottles and a clear indication that he is overusing them. We have a bottle that is dated 09-03 that is empty and a bottle that is dated 09-15 that should not have been used, but already has thirteen more pills missing, if you ignore the previous bottle. We had a discussion and I explained to him that we would not be prescribing that medication going forward and that we would be identifying to his provider that we do not believe it is a good idea. He initially lobbied that we just decrease it to one a day and I was clear ultimately that his behavior with Klonopin is clearly suggesting that it is an inappropriate medication for him to have. We discussed that we would look at the possibility of Propranolol or Neurontin or some other non-addictive agent if he were to choose to stay and that the likelihood is that we would consider discharge tomorrow barring some clear indication of why he should stay. An excerpt from his previous hospitalization is included because there have been no substantive changes in his historical data. I do note that he originally tried to tell this story to that story to explain the absence of the medication, but as we discussed, even if someone took the medication, what it demonstrates is that he is not currently in a position to keep his script properly protected even from someone else or himself. Per 09/18/2019 eval: History of Present Illness Lon Curran is a 44 year old male Lon presents today after presenting to the emergency room the day of discharge reporting suicidal and homicidal thoughts, and inability to contract for safety, as well as depression, and so he was admitted to the neuropsychiatric unit for observation for these issues. 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 When he was seen, he was more or less unresponsive to questions, basically saying ?I don?t know? and denying that this has a malingering element to it. Prior to discharge, the last thing I had said to him was ?are you sure you?re actually ready to be discharged, and that we are not going to see you back in a day or so?, and he assured us that would not happen and he did not even make it five or six hours. He reported that his significant other had given him his medication, but not his Klonopin, but denied that this had anything to do with the Klonopin. He agreed that we would be able to speak to her regarding where this medication is, because it is illegal for anyone other than the designated person that it is prescribed to, taking a controlled substance. Additionally, there were concerns that we discussed about this being just a place for him to stay. He told multiple different stories that they were splitting up, but then saying that they have a kid together, and he could live there, then changing his story that he can stay with his mom, so he was hard to arouse, but was telling different versions of different stories. In addition to that, we were contacted by the police surrounding wanting to have a conversation with him, knowing he was here, and saying they needed to interview him about something, so there may be another reason why he is avoiding being out of the hospital. I discussed that I would give him the next 24 hours, but the likelihood is that barring that we have a sound clinical reason to continue his hospitalization, that there would be a likely discharge tomorrow. Excerpt from his last hospitalization is included below, as there have been no substantive changes to his history. [place] [facility] [place]: History of Present Illness Lon Curran is a 44 year old male Lon presented to the emergency room endorsing suicidal thoughts and not being well overall, feeling depressed, and somewhat vague, but unable to contract for safety. He was admitted to the neuropsychiatric unit for definitive treatment of those issues. Today he continues to endorse just not feeling well and feeling like he ?needed a break.?. He endorsed that he had been taking his medication, but he did not feel that it had been that effective. He endorsed a desire to have the Klonopin increased to three times a day from his current twice a day dosing. We were working to get verification of the exact doses and agreed to restart medications as we had verification. He endorsed that he was also taking Seroquel, Prozac, and other medication, but seemed to focus on the increase in the Klonopin. He was not a great historian but did review his last inpatient hospitalization with this singer songwriter and endorsed that there had not been substantive changes from that time. An excerpt of that note is included below. He endorsed past suicide attempts and feeling unsafe at this point. Date of Service: Jan 12, 2016 Chief Complaint: Suicidal and homicidal ideation HPI: Mr. Curran is a 40-year-old male who is no [facility] with previous diagnosis of depression and anxiety, who was admitted under a 96 hour hold for the expression of suicidal and homicidal ideation in the emergency department. Patient reports that he's been feeling increasingly frustrated and the transition between Medicaid programs which has resulted in not being able to get his medications. He is a patient over at the [facility] pain clinic, and also over at [facility] [place], and he is prescribed mental health and pain medications. He states that he's been out of his medications for some weeks now because he is unable to afford the medicines without coverage. States that yesterday in his attempt to get his prescriptions, when he learned that there were not covered by his insurance, he became acutely frustrated and angry and expressed suicidal and homicidal ideation. As he presents today he denies that prior to this that he was experiencing any significant mood symptoms, but he has been fatigued with difficulty with sleep, associated with his chronic pain. He denies any psychotic symptoms, and denies any symptoms consistent with ramona, hypomania, PTSD. He frankly and emphatically denies any suicidal homicidal ideation today and is able to contract for safety in the community. Allergies: Coded Allergies: TRAMADOL (Verified Allergy, Intermediate, RASH, HIVES, 10/25/12) Active Meds: Current Hospital Medications: Medications (Trade) Dose Ordered Sig/Alix Route PRN Reason Start Time Stop Time Status Last Admin Dose Admin Lorazepam (Ativan Tab) 0.5 mg Q4H PRN PO FOR MILD ANXIETY 01/11/16 19:00 Lorazepam (Ativan Tab) 1 mg Q4H PRN PO FOR MODERATE ANXIETY 01/11/16 19:00 Lorazepam (Ativan Tab) 2 mg Q4H PRN PO FOR SEVERE ANXIETY 01/11/16 19:00 Lorazepam (Ativan Inj) 2 mg Q4H PRN IM For Severe Aggression 01/11/16 19:00 Haloperidol Lactate (Haldol Inj) 5 mg Q4H PRN IM Severe Aggression 01/11/16 19:00 Diphenhydramine HCl (Benadryl Inj) 50 mg ONCE PRN IV Severe Extrapyramidal Symptoms 01/11/16 19:00 Benztropine Mesylate (Cogentin Tab) 1 mg BID PRN PO Mild Extrapyramidal symptoms 01/11/16 19:00 Benztropine Mesylate (Cogentin Inj) 1 mg ONCE PRN IM Severe Extrapyramidal Symptom 01/11/16 19:00 Acetaminophen (Tylenol Tab) 650 mg Q4H PRN PO FOR MILD PAIN 01/11/16 19:00 01/11/16 21:29 Trazodone HCl (Trazodone) 50 mg BEDTIME PRN PO FOR SLEEP 01/11/16 19:00 01/11/16 21:28 Nicotine (Nicoderm Patch) 21 mg DAILY PRN TD FOR WITHDRAWAL 01/11/16 19:00 Nicotine Polacrilex (Nicotine Gum) 2 mg Q2H PRN PO Withdrawal 01/11/16 19:00 Haloperidol (Haldol Tab) 5 mg Q4H PRN PO For agitation 01/11/16 19:00 Lorazepam (Ativan Tab) 2 mg Q4H PRN PO FOR AGITATION 01/11/16 19:00 Fluoxetine HCl (Prozac) 50 mg DAILY PO 01/13/16 10:00 UNV Mirtazapine (Remeron) 15 mg BEDTIME PO 01/12/16 22:00 UNV Past Medical History Past Medical History: PAST PSYCHIATRIC HISTORY: -He states this is his first psychiatric hospitalization in almost 5 years -Receives outpatient mental health care at [facility] [place] PAST FAMILY PSYCHIATRIC HISTORY: -Noncontributory SOCIAL HISTORY: -Currently lives with his son PAST MEDICAL HISTORY: -Chronic back pain Meds NPU Home Medications Medication Instructions Recorded Confirmed Last Taken Type fluoxetine 40 mg capsule 80 mg PO QAM #60 cap 09/04/19 09/25/19 Unknown Rx buspirone 10 mg PO TID 30 Days #90 tab 09/16/19 09/25/19 09/24/19 12:00 Rx lithium carbonate 300 mg PO BEDTIME 30 Days #30 cap 09/16/19 09/25/19 09/24/19 11:00 Rx quetiapine [Seroquel] 200 mg PO .HS 30 Days #30 tab 09/16/19 09/25/19 Unknown Rx Allergies Allergy/AdvReac Type Severity Reaction Status Date / Time tramadol Allergy HIVES Verified 07/29/19 08:13 PFSH NPU PFSH: Medical History (Updated 09/27/19 @ 00:00 by ) Chronic low back pain Disc displacement, cervical H/O degenerative disc disease Hx of fracture of ankle (~05/2018) LEFT ANKLE DR CAGLE IN [facility] 05/2018 Long-term use of high-risk medication Panic disorder [episodic paroxysmal anxiety] Patient is leaving AMA. Smoking Social phobia, unspecified Spondylolisthesis, cervical region Spondylosis without myelopathy or radiculopathy Surgical History Hx of cervical spine surgery (~08/03/16) 08/03/16 C6-7 ACDFF Family History Father , UNKNOWN CAUSE No problems noted. Denies family history of Diabetes Anesthesia complication Bleeding disorder Cancer Social History Smoking and tobacco status: current every day smoker cigarettes Packs smoked per day: 0.5 Years cigarettes smoked: 20 [ Other cigarette details: 6 CIGS DAY ] Alcohol intake: never Lives independently: Yes Marital status: Single Current occupational status: disabled History of recent travel: No Mental Status Exam MSE Comments: This is a well-nourished, well-developed, white male, with limited dress, grooming, and eye contact. No abnormal movements except for significant psychomotor retardation. Limited cooperation with exam in mild to moderate distress. Speech was decreased rate and volume and limited. Mood described as depressed/anxious; affect subdued. Thought process, organized. Thought content: patient endorsed suicidal and homicidal ideation. no perceptual abnormalities. Attention and concentration were limited, and memory is unreliable, but none were formally tested. He is alert and oriented times three. Insight and judgment are impaired. Impulse control is impaired. Vitals/I&O/Wt Last Vital Signs Temp 98.4 F 09/25/19 22:00 Pulse 77 09/25/19 22:00 Resp 18 09/25/19 22:00 BP 139/84 09/25/19 22:00 Pulse Ox 95 09/25/19 22:00 Weight last 48 hrs Weight 63.503 kg Data NPU : 09/25/19 01:39 09/25/19 01:39 A&P Assessment and plan (1) Benzodiazepine abuse: Status: Acute (2) Malingering: Status: Acute (3) Substance abuse: Status: Acute (4) Major depression: Status: Acute Qualifiers: Active/Remission status: remission status unspecified Major depression recurrence: recurrent Qualified Code(s): F33.9 - Major depressive disorder, recurrent, unspecified (5) Anxiety: Status: Acute Additional A&P Information This is a 44 year old, white male, with question of malingering, benzodiazepine abuse, endorsement of homicidal thinking, and depression, who presents with overuse of benzodiazepines in his third hospitalization in about a week and a half to two weeks with requests for continuing the benzodiazepine which has been denied. Continue current medication except the Klonopin. Encourage individual, group, and milieu therapy. Continue q-15 minute checks for safety. Encourage sober limit treatment at the highest level of care to which he is willing to commit. Inpatient hospitalization is medically necessary and the clinically appropriate intervention at this time. We will evaluate for need for further inpatient hospitalization. Likely length of stay one to three days. Involuntary Hold Information 96 Hour Hold: 96 Hour Involuntary Admission: No Attestations NPU Medical Necessity Statement*: Inpatient hospitalization is medically necessary and the clinically appropriate intervention at this time. We will evaluate for need for further inpatient hospitalization. Likely length of stay one to three days. 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
[2019-09-25 14:00] VITALS: BP 122/80; PULSE 84; RESP 18; TEMP 36.9; O2SAT 95
--- NOTE | 2019-09-25 14:54 | PC.NURSE ---
Patient states that he is currently taking Clonazepam 0.5mg PO BID and receives it via [facility] [place] health worker Arelis Deal
[2019-09-25] MEDS: quetiapine 100 mg Tablet 200 MG PO (21:22)
[2019-09-25] MEDS: lithium carbonate 300 mg Capsule PO (21:23)
[2019-09-25 22:00] VITALS: BP 139/84; PULSE 77; RESP 18; TEMP 36.9; O2SAT 95
[2019-09-26 06:00] VITALS: BP 127/81; PULSE 66; RESP 17; TEMP 36.4; O2SAT 95
[2019-09-26] MEDS: fluoxetine 20 mg Capsule 80 MG PO (06:01)
[2019-09-26] MEDS: cetirizine 10 mg Tablet PO (08:01)
[2019-09-26] MEDS: BuSPIRONE 10 mg Tablet PO ×2 (08:01→14:24)
[2019-09-26 14:00] VITALS: BP 114/81; PULSE 90; RESP 20; TEMP 37.1; O2SAT 96
--- NOTE | 2019-09-26 14:15 | PC.RESP ---
Smoking Cessation information sent to patient.
--- NOTE | 2019-09-26 16:47 | P.DS_ITS ---
Reason for Visit Reason for Visit: SI Brief History: History of Present Illness Lon Curran is a 44 year old male who presented to the emergency room reporting that he was having thoughts to kill people. He was endorsing depression and was brought in on observation for definitive treatment of those issues. Today he presents with his medication bottles and a clear indication that he is overusing them. We have a bottle that is dated 09-03 that is empty and a bottle that is dated 09-15 that should not have been used, but already has thirteen more pills missing, if you ignore the previous bottle. We had a discussion and I explained to him that we would not be prescribing that medication going forward and that we would be identifying to his provider that we do not believe it is a good idea. He initially lobbied that we just decrease it to one a day and I was clear ultimately that his behavior with Klonopin is clearly suggesting that it is an inappropriate medication for him to have. We discussed that we would look at the possibility of Propranolol or Neurontin or some other non-addictive agent if he were to choose to stay and that the likelihood is that we would consider discharge tomorrow barring some clear indication of why he should stay. An excerpt from his previous hospitalization is included because there have been no substantive changes in his historical data. I do note that he originally tried to tell this story to that story to explain the absence of the medication, but as we discussed, even if someone took the medication, what it demonstrates is that he is not currently in a position to keep his script properly protected even from someone else or himself. Per 09/18/2019 eval: History of Present Illness Lon Curran is a 44 year old male Lon presents today after presenting to the emergency room the day of discharge reporting suicidal and homicidal thoughts, and inability to contract for safety, as well as depression, and so he was admitted to the neuropsychiatric unit for observation for these issues. Prior to seeing this senior underwriter, he was noted to have snuck in contraband and had some pills both in his shoes and in his rectum. When he was seen, he was more or less unresponsive to questions, basically saying ?I don?t know? and denying that this has a malingering element to it. Prior to discharge, the last thing I had said to him was ?are you sure you?re actually ready to be discharged, and that we are not going to see you back in a day or so?, and he assured us that would not happen and he did not even make it five or six hours. He reported that his significant other had given him his medication, but not his Klonopin, but denied that this had anything to do with the Klonopin. He agreed that we would be able to speak to her regarding where this medication is, because it is illegal for anyone other than the designated person that it is prescribed to, taking a controlled substance. Additionally, there were concerns that we discussed about this being just a place for him to stay. He told multiple different stories that they were splitting up, but then saying that they have a kid together, and he could live there, then changing his story that he can stay with his mom, so he was hard to arouse, but was telling different versions of different stories. In addition to that, we were contacted by the police surrounding wanting to have a conversation with him, knowing he was here, and saying they needed to interview him about something, so there may be another reason why he is avoiding being out of the hospital. I discussed that I would give him the next 24 hours, but the likelihood is that barring that we have a sound clinical reason to continue his hospitalization, that there would be a likely discharge tomorrow. Excerpt from his last hospitalization is included below, as there have been no substantive changes to his history. Per last [facility] eval 09/14/19: History of Present Illness Lon Curran is a 44 year old male Lon presented to the emergency room endorsing suicidal thoughts and not being well overall, feeling depressed, and somewhat vague, but unable to contract for safety. He was admitted to the neuropsychiatric unit for definitive treatment of those issues. Today he continues to endorse just not feeling well and feeling like he ?needed a break.?. He endorsed that he had been taking his medication, but he did not feel that it had been that effective. He endorsed a desire to have the Klonopin increased to three times a day from his current twice a day dosing. We were working to get verification of the exact doses and agreed to restart medications as we had verification. He endorsed that he was also taking Seroquel, Prozac, and other medication, but seemed to focus on the increase in the Klonopin. He was not a great historian but did review his last inpatient hospitalization with this senior underwriter and endorsed that there had not been substantive changes from that time. An excerpt of that note is included below. He endorsed past suicide attempts and feeling unsafe at this point. Date of Service: Jan 12, 2016 Chief Complaint: Suicidal and homicidal ideation HPI: Mr. Curran is a 40-year-old male who is no [facility] with previous diagnosis of depression and anxiety, who was admitted under a 96 hour hold for the expression of suicidal and homicidal ideation in the emergency department. Patient reports that he's been feeling increasingly frustrated and the transition between Medicaid programs which has resulted in not being able to get his medications. He is a patient over at the [facility] pain [facility], and also over at [facility], and he is prescribed mental health and pain medications. He states that he's been out of his medications for some weeks now because he is unable to afford the medicines without coverage. States that yesterday in his attempt to get his prescriptions, when he learned that there were not covered by his insurance, he became acutely frustrated and angry and expressed suicidal and homicidal ideation. As he presents today he denies that prior to this that he was experiencing any significant mood symptoms, but he has been fatigued with difficulty with sleep, associated with his chronic pain. He denies any psychotic symptoms, and denies any symptoms consistent with ramona, hypomania, PTSD. He frankly and emphatically denies any suicidal homicidal ideation today and is able to contract for safety in the community. Allergies: Coded Allergies: TRAMADOL (Verified Allergy, Intermediate, RASH, HIVES, 10/25/12) Active Meds: Current Hospital Medications: Medications (Trade) Dose Ordered Sig/Alix Route PRN Reason Start Time Stop Time Status Last Admin Dose Admin Lorazepam (Ativan Tab) 0.5 mg Q4H PRN PO FOR MILD ANXIETY 01/11/16 19:00 Lorazepam (Ativan Tab) 1 mg Q4H PRN PO FOR MODERATE ANXIETY 01/11/16 19:00 Lorazepam (Ativan Tab) 2 mg Q4H PRN PO FOR SEVERE ANXIETY 01/11/16 19:00 Lorazepam (Ativan Inj) 2 mg Q4H PRN IM For Severe Aggression 01/11/16 19:00 Haloperidol Lactate (Haldol Inj) 5 mg Q4H PRN IM Severe Aggression 01/11/16 19:00 Diphenhydramine HCl (Benadryl Inj) 50 mg ONCE PRN IV Severe Extrapyramidal Symptoms 01/11/16 19:00 Benztropine Mesylate (Cogentin Tab) 1 mg BID PRN PO Mild Extrapyramidal symptoms 01/11/16 19:00 Benztropine Mesylate (Cogentin Inj) 1 mg ONCE PRN IM Severe Extrapyramidal Symptom 01/11/16 19:00 Acetaminophen (Tylenol Tab) 650 mg Q4H PRN PO FOR MILD PAIN 01/11/16 19:00 01/11/16 21:29 Trazodone HCl (Trazodone) 50 mg BEDTIME PRN PO FOR SLEEP 01/11/16 19:00 01/11/16 21:28 Nicotine (Nicoderm Patch) 21 mg DAILY PRN TD FOR WITHDRAWAL 01/11/16 19:00 Nicotine Polacrilex (Nicotine Gum) 2 mg Q2H PRN PO Withdrawal 01/11/16 19:00 Haloperidol (Haldol Tab) 5 mg Q4H PRN PO For agitation 01/11/16 19:00 Lorazepam (Ativan Tab) 2 mg Q4H PRN PO FOR AGITATION 01/11/16 19:00 Fluoxetine HCl (Prozac) 50 mg DAILY PO 01/13/16 10:00 UNV Mirtazapine (Remeron) 15 mg BEDTIME PO 01/12/16 22:00 UNV Past Medical History Past Medical History: PAST PSYCHIATRIC HISTORY: -He states this is his first psychiatric hospitalization in almost 5 years -Receives outpatient mental health care at [facility] PAST FAMILY PSYCHIATRIC HISTORY: -Noncontributory SOCIAL HISTORY: -Currently lives with his son PAST MEDICAL HISTORY: -Chronic back pain Hospital Course Hospital Course The patient presented to the emergency room reporting homicidality and depression, and needing his medications adjusted. He was admitted to the neuropsychiatric unit, on observational status, for definitive treatment of his issues. We had a lengthy discussion about identifying his issues with Klonopin. He brought two bottles with him to the hospital which together constituted him not being able to account for 89 Klonopin tablets, since 09-04-19, with the max dosage on the medication being 2 a day. So that is over four a day average. When this math was explained to him, he ultimately attempted to get the medication reduced to one pill a day. And we discussed the fact that he was not demonstrating the ability to appropriately manage the medication, so it was discontinued. We continued his other medication, and he initially reported that he would stay as we adjusted his medication, as he had requested upon admission. But the next day, after not receiving any benzodiazepines, he requested to sign out of the hospital, given he was on a voluntary commitment. It is notable that not only did we not restart his medication, but we did not return the 31 pills he had in one bottle to him, and that bottle was taken to the pharmacy for disposal. During the hospitalization, the patient had routine laboratory studies which were within normal limits, except for a few outliers. Additionally, the p atient had a general medical evaluation which was within normal limits and revealed no new acute processes. Discharge Summary At the time of discharge the patient denied all lethality, was absent psychosis, and mood and anxiety were well managed. The patient endorsed a plan to avoid all drugs of abuse and to follow-up with outpatient services, as recommended. The patient was evaluated and deemed to be absent credible lethality, and he was on a voluntary commitment and wanted to leave, against medical advise, but given his absence of lethality, he was allowed to discharge. Involuntary Hold Information 96 Hour Hold: 96 Hour Involuntary Admission: No Mental Status Exam MSE Comments: This is a well-nourished, well-developed, white male, with limited dress, grooming, and eye contact. No abnormal movements except for significant psychomotor retardation. Limited cooperation with exam in mild to moderate distress. Speech was decreased rate and volume and limited. Mood described as better; affect subdued. Thought process, organized. Thought content: patient endorsed suicidal and homicidal ideation. no perceptual abnormalities. Attention and concentration were limited, and memory is unreliable, but none were formally tested. He is alert and oriented times three. Insight and judgment are improving. Impulse control is impaired. Discharge Data Vitals: Last Vital Signs Temp 98.7 F 09/26/19 14:00 Pulse 90 09/26/19 14:00 Resp 20 H 09/26/19 14:00 BP 114/81 09/26/19 14:00 Pulse Ox 96 09/26/19 14:00 Discharge Plan Discharge Patient Disposition: Left Against Medical Advice Condition: Stable Prescriptions: New tizanidine 4 mg Tablet 4 mg PO QID PRN (Reason: muscle spasticity) 10 Days Qty: 10 RF: 0 Continued fluoxetine 40 mg capsule 80 mg PO QAM Qty: 60 RF: 2 lithium carbonate 300 mg Capsule 300 mg PO BEDTIME 30 Days Qty: 30 RF: 1 quetiapine [Seroquel] 200 mg tablet 200 mg PO .HS 30 Days Qty: 30 RF: 1 buspirone 10 mg tablet 10 mg PO TID 30 Days Qty: 90 RF: 1 Discharge Orders: Discharge Order (Routine); Ordered 09/26/19 Ordered By: Misael Collins Referrals: Arelis Nunn PMHNP [Staff Physician] - 10/01/19 9:00 am Bakari Hankins MD [Primary Care Provider] - Discharge Diet: Regular Discharge Activity: Resume usual activity Patient Instructions: Anxiety (DC) Discharge Date/Time: 09/26/19 17:19 Discharge Attestations NPU Time Spent in Discharge Care*: less than 30 min Specific Discharge Activities: Specific discharge activities: educating p atient, discussing with oil field caser/social workers/dc planners, documenting/other paperwork and evaluating patient/reviewing data Status at Discharge: Cognitive status at discharge: cognitively intact , Behavioral status at discharge: cooperative , Coding Level of Care Code Acute Process Engineering Manager for Giuseppe Arredondo
[2019-09-26 16:58] VITALS: BP 114/81; PULSE 90; RESP 20; TEMP 37.1; O2SAT 96
== END 2019-09-26 17:19 | disposition left against medical advice (07) ==
LOC: ER 03:16 → NP 06:13
PROVIDERS: Emergency Medicine; Admitting Provider Psychiatry & Neurology Psychiatry; PCP Family Medicine; Visit Provider Psychiatry & Neurology Psychiatry
DX: F13.10 Sedative, hypnotic or anxiolytic abuse, uncomplicated (principal); Z76.5 Malingerer [conscious simulation]; F19.10 Other psychoactive substance abuse, uncomplicated; F33.9 Major depressive disorder, recurrent, unspecified; F41.9 Anxiety disorder, unspecified; F17.210 Nicotine dependence, cigarettes, uncomplicated
CPT/HCPCS: 12345; 36415; 80053; 80178; 80306; 80307; 85025; 99284; 99285; G0378

== ENCOUNTER → 2019-10-01 07:34 | Outpatient (BNVA) | payer MEDICAID, SELFPAY | PROVIDERS: PCP Family Medicine; Visit Provider Nurse Practitioner | DX: F41.0 Panic disorder [episodic paroxysmal anxiety] (principal); F40.10 Social phobia, unspecified | CPT/HCPCS: 99214 ==

== ENCOUNTER → 2019-11-27 07:50 | Outpatient (BNVA) | payer MEDICAID, SELFPAY | PROVIDERS: PCP Family Medicine; Visit Provider Nurse Practitioner | DX: F41.0 Panic disorder [episodic paroxysmal anxiety] (principal); F40.10 Social phobia, unspecified | CPT/HCPCS: 99214 ==

== ENCOUNTER 2019-12-19 01:45 | Inpatient (IN) | payer MEDICAID, SELFPAY ==
[2019-12-19 01:46] VITALS: BP 154/89; PULSE 90; RESP 17; TEMP 36.9; O2SAT 99; BMI 21.4
--- NOTE | 2019-12-19 01:48 | ED_ITS ---
HPI - Psych General: Chief Complaint: Psychiatric Symptoms Stated Complaint: si/hi Time Seen by Provider: 12/19/19 01:46 Source: patient and EMS Mode of arrival: EMS Limitations: no limitations History of Present Illness: HPI Narrative: 44-year-old male who presents here with anxiety along with homicidal ideation. Patient states that he has been hearing voices and feels quite anxious and has been having thoughts of hurting people. Patient's been evaluated in the past and states that he has been taking his meds. Denies any worsening improving factors. Associated symptoms: Reports depression and homicidal ideation Review of Systems Const: Denies: fever(s), chills, body aches or change in appetite Eyes: Denies: blurry vision or eye discomfort ENMT: Denies: throat pain or dental pain Card: Denies: chest pain Resp: Denies: dyspnea GI: Denies: abdominal pain, nausea, vomiting or diarrhea : Denies: dysuria Musc: Denies: neck pain or back pain Skin/Breast: Denies: rash Neuro: Denies: headache(s) Psych: Reports: anxiety, depression and homicidal ideation González/Lymph: Denies: easy bruising All/Imm: Denies: urticaria PFSH ED PFSH: Medical History (Updated 12/19/19 @ 02:05 by Justice Perez MD) Chronic low back pain Disc displacement, cervical H/O degenerative disc disease Hx of fracture of ankle (~05/2018) LEFT ANKLE DR CAGLE IN [facility] 05/2018 Long-term use of high-risk medication Panic disorder [episodic paroxysmal anxiety] Patient is leaving [facility]. Smoking Social phobia, unspecified Spondylolisthesis, cervical region Spondylosis without myelopathy or radiculopathy Surgical History Hx of cervical spine surgery (~08/03/16) 08/03/16 C6-7 ACDFF Family History Father , UNKNOWN CAUSE No problems noted. Denies family history of Diabetes Anesthesia complication Bleeding disorder Cancer Social History Smoking and tobacco status: current every day smoker cigarettes Packs smoked per day: 0.5 Years cigarettes smoked: 20 [ Other cigarette details: 6 CIGS DAY ] Alcohol intake: never Lives independently: Yes Marital status: Single Current occupational status: disabled History of recent travel: No Physical Exam Const: COMMON NORMALS: no acute distress, patient oriented x3 and healthy appearing HENMT: COMMON NORMALS: normocephalic and atraumatic HEAD & SCALP: normocephalic and atraumatic Eye: COMMON NORMALS: Equal, round and reactive pupils present and EOMs intact bilaterally PUPIL: Yes Equal, round and reactive pupils present Neck/C-Spine: COMMON NORMALS: full ROM and supple Chest: COMMONS NORMALS: normal inspection of the chest and normal palpation of entire chest wall Resp: COMMON NORMALS: normal respiratory effort, No retractions, No use of accessory muscles and clear to auscultation bilaterally AUSCULTATION: clear to auscultation bilaterally Cardio: COMMON NORMALS: regular rate, regular rhythm and No murmurs present (Cardio) RATE: regular rate RHYTHM: regular rhythm GI: COMMON NORMALS: Normal to inspection, nondistended, normoactive bowel sounds present, Soft to palpation, non-tender and no masses PALPATION: Yes Soft to palpation Extremity: COMMON NORMALS: normal to inspection and full ROM Neuro: COMMON NORMALS: patient oriented x3, moves all extremities and no focal motor deficits Psych: COMMON NORMALS: cooperative APPEARANCE: Yes unkempt and Yes disheveled ATTITUDE: Yes paranoid MOOD & AFFECT: Yes elevated mood THOUGHT CONTENT: Yes Homicidality present and Yes Hallucination(s) present Skin: COMMON NORMALS: no rashes or lesions noted and no wounds GENERAL SKIN EXAM: no rashes or lesions noted MDM - Psych 2 MDM Narrative: Medical decision making narrative: Lon presents here with homicidal ideation along with acute anxiety. Patient here is voluntarily wanting admit to the psychiatric unit. Patient is well-appearing here and medically cleared I spoke to Dr. Collins and will admit. Lab Data: Labs: Lab Results 12/19/19 12/19/19 12/19/19 Range/Units 02:10 02:10 02:10 WBC 22.8 H (4.0-10.0) 10^3/ uL RBC 4.46 (4.1-5.3) 10^6/u L Hgb 14.1 (11.7-16.6) g/dL Hct 41.8 L (42.0-52.0) % MCV 93.7 (80-94) fL MCH 31.6 (28.0-34.0) pg MCHC 33.7 (30.0-36.0) g/dL RDW 13.3 (12.1-15.1) % Plt Count 206 (130-400) 10^3/c mm MPV 9.7 (7.4-10.4) fL Neut % (Auto) 73.8 % Lymph % (Auto) 20.9 % [place] % (Auto) 4.3 % Eos % (Auto) 0.3 % Baso % (Auto) 0.3 % Neut # (Auto) 16.85 H (1.8-7.7) 10^3/u L Lymph # (Auto) 4.8 (0.8-4.8) 10^3/u L [place] # (Auto) 1.0 H (0.2-0.9) 10^3/u L Eos # (Auto) 0.1 (0.0-0.8) 10^3/u L Baso # (Auto) 0.1 (0.0-0.1) 10^3/u L Nucleated RBC % (a uto) 0 % Nucleated RBCs # 0.0 /100WBC Sodium 140 (136-145) mmol/L Potassium 3.9 (3.5-5.1) mmol/L Chloride 100 (98-107) mmol/L Carbon Dioxide 22 (22-29) mmol/L Anion Gap 21.9 H (5-19) BUN 12 (6-20) mg/dL Creatinine 0.9 (0.7-1.2) mg/dL GFR Calculation 92.5 (90-130) mL/min Glucose 79 (65-115) mg/dL Calculated Osmolal ity 289 (285-295) mOsm/k g Calcium 9.8 (8.5-10.5) mg/dL Total Bilirubin 0.3 (0.15-1.2) mg/dL AST 24 (0-40) U/L ALT 18 (0-41) U/L Alkaline Phosphata se 86 (40-130) IU/L Total Protein 8.0 (6.6-8.7) g/dL Albumin 5.0 (3.5-5.2) g/dL Globulin 3.0 (1.3-4.6) g/dL Salicylates < 0.3 L (3-10) mg/dL Urine Opiates Scre en (Negative) ng/mL Acetaminophen < 5.0 L (10-30) ug/mL Ur Barbiturates Sc reen (Negative) ng/mL Ur Phencyclidine S crn (Negative) ng/mL Ur Amphetamines Sc reen (Negative) ng/mL U Benzodiazepines Scrn (Negative) ng/mL [place] 0.2 L (0.6-1.2) mmol/L Urine Cocaine Scre en (Negative) ng/mL U Marijuana (THC) Screen (Negative) ng/mL Ethyl Alcohol 166 H (0-10) mg/dL 12/19/19 Range/Units 02:10 WBC (4.0-10.0) 10^3/ uL RBC (4.1-5.3) 10^6/u L Hgb (11.7-16.6) g/dL Hct (42.0-52.0) % MCV (80-94) fL MCH (28.0-34.0) pg MCHC (30.0-36.0) g/dL RDW (12.1-15.1) % Plt Count (130-400) 10^3/c mm MPV (7.4-10.4) fL Neut % (Auto) % Lymph % (Auto) % [place] % (Auto) % Eos % (Auto) % Baso % (Auto) % Neut # (Auto) (1.8-7.7) 10^3/u L Lymph # (Auto) (0.8-4.8) 10^3/u L [place] # (Auto) (0.2-0.9) 10^3/u L Eos # (Auto) (0.0-0.8) 10^3/u L Baso # (Auto) (0.0-0.1) 10^3/u L Nucleated RBC % (a uto) % Nucleated RBCs # /100WBC Sodium (136-145) mmol/L Potassium (3.5-5.1) mmol/L Chloride (98-107) mmol/L Carbon Dioxide (22-29) mmol/L Anion Gap (5-19) BUN (6-20) mg/dL Creatinine (0.7-1.2) mg/dL GFR Calculation (90-130) mL/min Glucose (65-115) mg/dL Calculated Osmolal ity (285-295) mOsm/k g Calcium (8.5-10.5) mg/dL Total Bilirubin (0.15-1.2) mg/dL AST (0-40) U/L ALT (0-41) U/L Alkaline Phosphata se (40-130) IU/L Total Protein (6.6-8.7) g/dL Albumin (3.5-5.2) g/dL Globulin (1.3-4.6) g/dL Salicylates (3-10) mg/dL Urine Opiates Scre en Negative (Negative) ng/mL Acetaminophen (10-30) ug/mL Ur Barbiturates Sc reen Negative (Negative) ng/mL Ur Phencyclidine S crn Negative (Negative) ng/mL Ur Amphetamines Sc reen Negative (Negative) ng/mL U Benzodiazepines Scrn Negative (Negative) ng/mL [place] (0.6-1.2) mmol/L Urine Cocaine Scre en Negative (Negative) ng/mL U Marijuana (THC) Screen Positive H (Negative) ng/mL Ethyl Alcohol (0-10) mg/dL Discharge Plan Discharge Patient Disposition: Admitted As Inpatient Clinical Impression: Acute anxiety, Homicidal ideation Condition: Stable Referrals: Bakari Hankins MD [Primary Care Provider] - Coding Level of Care Code ED Machine Sneller for g Fwd Exam Comprehensive
[2019-12-19] MEDS: LORazepam 2 mg Tablet PO ×3 (02:01→04:42)
[2019-12-19 02:26] LABS: Basophils # 0.1 10^3/uL (0.0-0.1); Basophils % 0.3 %; Eosinophils # 0.1 10^3/uL (0.0-0.8); Eosinophils % 0.3 %; Hematocrit 41.8 % (42.0-52.0); Hemoglobin 14.1 g/dL (11.7-16.6); Lymphocytes # 4.8 10^3/uL (0.8-4.8); Lymphocytes % 20.9 %; Mean Corpuscular HGB Conc 33.7 g/dL (30.0-36.0); Mean Corpuscular Hemoglobin 31.6 pg (28.0-34.0); Mean Corpuscular Volume 93.7 fL (80-94); Mean Platelet Volume 9.7 fL (7.4-10.4); Monocytes % 4.3 %; Neutrophils # 16.85 10^3/uL (1.8-7.7); Neutrophils % 73.8 %; Nucleated Red Blood Cells % 0 %; Platelet Count 206 10^3/cmm (130-400); Red Blood Count 4.46 10^6/uL (4.1-5.3); Red Cell Distribution Width 13.3 % (12.1-15.1); White Blood Count 22.8 10^3/uL (4.0-10.0)
[2019-12-19 02:36] LABS: Amphetamines Screen Urine Negative (Negative); Barbiturates Screen Urine Negative (Negative); Benzodiazepines Screen Urine Negative (Negative); Cocaine Screen Urine Negative (Negative); Opiate Screen Urine Negative (Negative); PCP Screen Urine Negative (Negative); THC Screen Urine Positive (Negative)
[2019-12-19 02:49] LABS: Lithium 0.2 mmol/L (0.6-1.2)
[2019-12-19 02:50] LABS: Alanine Aminotransferase 18 U/L (0-41); Alcohol Level 166 mg/dL (0-10); Alkaline Phosphatase 86 IU/L (40-130); Anion Gap 21.9 (5-19); Aspartate Amino Transferase 24 U/L (0-40); Blood Urea Nitrogen 12 mg/dL (6-20); Calcium 9.8 mg/dL (8.5-10.5); Carbon Dioxide 22 mmol/L (22-29); Chloride 100 mmol/L (98-107); Glomerular Filtration Rate 92.5 mL/min (90-130); Glucose 79 mg/dL (65-115); Osmolality Calculated 289 mOsm/kg (285-295); Potassium 3.9 mmol/L (3.5-5.1); Sodium 140 mmol/L (136-145); Total Bilirubin 0.3 mg/dL (0.15-1.2)
[2019-12-19 02:51] LABS: Acetaminophen < 5.0 ug/mL (10-30); Salicylate < 0.3 mg/dL (3-10)
[2019-12-19 03:39] VITALS: BP 136/82; PULSE 87; RESP 17; TEMP 36.8; O2SAT 95
[2019-12-19] MEDS: hyDROXYzine 25 mg Capsule 50 MG PO ×2 (04:21→21:22)
--- NOTE | 2019-12-19 04:27 | PC.NURSE ---
ciwa 17. pt requested medication is mildly anxious, hearing voices, and sweaty. med nurse notified
--- NOTE | 2019-12-19 04:55 | PC.NURSE ---
INFLUENZA VACCINE 1 SINGE DOSE 0.5 ML GIVEN IM IN LEFT DELTOID PER PT REQUEST. PT EDUCATED ON MED GIVEN & VERBALIZED UNDERSTANDING. WILL CONT TO MONITOR INJECTION SITE FOR ANY REDNESS, SWELLING, OR IRRITATION. LOT [id number] EXP 08/25/20
[2019-12-19 06:00] VITALS: BP 120/67; PULSE 108; RESP 17; TEMP 37.2; O2SAT 93
[2019-12-19] MEDS: folic acid 1 mg Tablet PO (08:49)
[2019-12-19] MEDS: thiamine 100 mg Tablet PO (08:49)
[2019-12-19] MEDS: multivitamin therapeutic Tablet 1 TAB PO (08:49)
[2019-12-19] MEDS: fluoxetine 20 mg Capsule 80 MG PO (08:50)
[2019-12-19 14:00] VITALS: BP 124/76; PULSE 107; RESP 18; TEMP 36.6; O2SAT 95
--- NOTE | 2019-12-19 15:35 | PC.RESP ---
SMOKING CESSATION INFORMATION SENT TO PATIENT.
--- NOTE | 2019-12-19 16:45 | P.HP_ITS ---
Providers/Chief Complaint Admitting Physician: Misael Collins MD Primary Care Provider: Bakari Hankins MD Chief Complaint: si/hi HPI NPU History of Present Illness Lon Curran is a 44 year old male who presented to the emergency room with the following report: Chief Complaint: Psychiatric Symptoms Stated Complaint: si/hi Time Seen by Provider: 12/19/19 01:46 Source: patient and EMS Mode of arrival: EMS Limitations: no limitations History of Present Illness: HPI Narrative: 44-year-old male who presents here with anxiety along with homicidal ideation. Patient states that he has been hearing voices and feels quite anxious and has been having thoughts of hurting people. Patient's been evaluated in the past and states that he has been taking his meds. Denies any worsening improving factors. Associated symptoms: Reports depression and homicidal ideation He was admitted to the neuropsychiatric unit for definitive treatment of those issues. Lon was more or less out of it for the day. Later in the bed with the cover over his head. Made multiple attempts to meet with him and have a more productive conversation without success. He simply reported that he had relapsed, but denied being off of his medication. He denied any substantive ch anges as I reviewed his previous evaluation with this fiction writer and he denied having new issues. He identified knowing he needed to manage his addiction but that he just had a rough time. There was limited conversation and he reported we would be able to talk more when he was more with it. Per his 09/25/2019 [facility] inpatient psychiatric evaluation: History of Present Illness Lon Curran is a 44 year old male who presented to the emergency room reporting that he was having thoughts to kill people. He was endorsing depression and was brought in on observation for definitive treatment of those issues. Today he presents with his medication bottles and a clear indication that he is overusing them. We have a bottle that is dated 79 that is empty and a bottle that is dated 09-15 that should not have been used, but already has thirteen more pills missing, if you ignore the previous bottle. We had a discussion and I explained to him that we would not be prescribing that medication going forward and that we would be identifying to his provider that we do not believe it is a good idea. He initially lobbied that we just decrease it to one a day and I was clear ultimately that his behavior with Klonopin is clearly suggesting that it is an inappropriate medication for him to have. We discussed that we would look at the possibility of Propranolol or Neurontin or some other non-addictive agent if he were to choose to stay and that the likelihood is that we would consider discharge tomorrow barring some clear indication of why he should stay. An excerpt from his previous hospitalization is included because there have been no substantive changes in his historical data. I do note that he originally tried to tell this story to that story to explain the absence of the medication, but as we discussed, even if someone took the medication, what it demonstrates is that he is not currently in a position to keep his script properly protected even from someone else or himself. Per 09/18/2019 eval: History of Present Illness Lon Curran is a 44 year old male Lon presents today after presenting to the emergency room the day of discharge reporting suicidal and homicidal thoughts, and inability to contract for safety, as well as depression, and so he was admitted to the neuropsychiatric unit for observation for these issues. Prior to seeing this fiction writer, he was noted to have snuck in contraband and had some pills both in his shoes and in his rectum. When he was seen, he was more or less unresponsive to questions, basically saying ?I don?t know? and denying that this has a malingering element to it. Prior to discharge, the last thing I had said to him was ?are you sure you?re actually ready to be discharged, and that we are not going to see you back in a day or so?, and he assured us that would not happen and he did not even make it five or six hours. He reported that his significant other had given him his medication, but not his Klonopin, but denied that this had anything to do with the Klonopin. He agreed that we would be able to speak to her regarding where this medication is, because it is illegal for anyone other than the designated person that it is prescribed to, taking a controlled substance. Additionally, there were concerns that we discussed about this being just a place for him to stay. He told multiple different stories that they were splitting up, but then saying that they have a kid together, and he could live there, then changing his story that he can stay with his mom, so he was hard to arouse, but was telling different versions of different stories. In addition to that, we were contacted by the police surrounding wanting to have a conversation with him, knowing he was here, and saying they needed to interview him about something, so there may be another reason why he is avoiding being out of the hospital. I discussed that I would give him the next 24 hours, but the likelihood is that barring that we have a sound clinical reason to continue his hospitalization, that there would be a likely discharge tomorrow. Excerpt from his last hospitalization is included below, as there have been no substantive changes to his history. Per last [facility] eval 09/14/19: History of Present Illness Lon Curran is a 44 year old male Lon presented to the emergency room endorsing suicidal thoughts and not being well overall, feeling depressed, and somewhat v ague, but unable to contract for safety. He was admitted to the neuropsychiatric unit for definitive treatment of those issues. Today he continues to endorse just not feeling well and feeling like he ?needed a break.?. He endorsed that he had been taking his medication, but he did not feel that it had been that effective. He endorsed a desire to have the Klonopin increased to three times a day from his current twice a day dosing. We were working to get verification of the exact doses and agreed to restart medications as we had verification. He endorsed that he was also taking Seroquel, Prozac, and other medication, but seemed to focus on the increase in the Klonopin. He was not a great historian but did review his last inpatient hospitalization with this fiction writer and endorsed that there had not been substantive changes from that time. An excerpt of that note is included below. He endorsed past suicide attempts and feeling unsafe at this point. Date of Service: Jan 12, 2016 Chief Complaint: Suicidal and homicidal ideation HPI: Mr. Curran is a 40-year-old male who is no [facility] with previous diagnosis of depression and anxiety, who was admitted under a 96 hour hold for the expression of suicidal and homicidal ideation in the emergency department. Patient reports that he's been feeling increasingly frustrated and the transition between Medicaid programs which has resulted in not being able to get his medications. He is a patient over at the [facility] pain [facility], and also over at [facility], and he is prescribed mental health and pain medications. He states that he's been out of his medications for some weeks now because he is unable to afford the medicines without coverage. States that yesterday in his attempt to get his prescriptions, when he learned that there were not covered by his insurance, he became acutely frustrated and angry and expressed suicidal and homicidal ideation. As he presents today he denies that prior to this that he was experiencing any significant mood symptoms, but he has been fatigued with difficulty with sleep, associated with his chronic pain. He denies any psychotic symptoms, and denies any symptoms consistent with ramona, hypomania, PTSD. He frankly and emphatically denies any suicidal homicidal ideation today and is able to contract for safety in the community. Allergies: Coded Allergies: TRAMADOL (Verified Allergy, Intermediate, RASH, HIVES, 10/25/12) Active Meds: Current Hospital Medications: Medications (Trade) Dose Ordered Sig/Alix Route PRN Reason Start Time Stop Time Status Last Admin Dose Admin Lorazepam (Ativan Tab) 0.5 mg Q4H PRN PO FOR MILD ANXIETY 01/11/16 19:00 Lorazepam (Ativan Tab) 1 mg Q4H PRN PO FOR MODERATE ANXIETY 01/11/16 19:00 Lorazepam (Ativan Tab) 2 mg Q4H PRN PO FOR SEVERE ANXIETY 01/11/16 19:00 Lorazepam (Ativan Inj) 2 mg Q4H PRN IM For Severe Aggression 01/11/16 19:00 Haloperidol Lactate (Haldol Inj) 5 mg Q4H PRN IM Severe Aggression 01/11/16 19:00 Diphenhydramine HCl (Benadryl Inj) 50 mg ONCE PRN IV Severe Extrapyramidal Symptoms 01/11/16 19:00 Benztropine Mesylate (Cogentin Tab) 1 mg BID PRN PO Mild Extrapyramidal symptoms 01/11/16 19:00 Benztropine Mesylate (Cogentin Inj) 1 mg ONCE PRN IM Severe Extrapyramidal Symptom 01/11/16 19:00 Acetaminophen (Tylenol Tab) 650 mg Q4H PRN PO FOR MILD PAIN 01/11/16 19:00 01/11/16 21:29 Trazodone HCl (Trazodone) 50 mg BEDTIME PRN PO FOR SLEEP 01/11/16 19:00 01/11/16 21:28 Nicotine (Nicoderm Patch) 21 mg DAILY PRN TD FOR WITHDRAWAL 01/11/16 19:00 Nicotine Polacrilex (Nicotine Gum) 2 mg Q2H PRN PO Withdrawal 01/11/16 19:00 Haloperidol (Haldol Tab) 5 mg Q4H PRN PO For agitation 01/11/16 19:00 Lorazepam (Ativan Tab) 2 mg Q4H PRN PO FOR AGITATION 01/11/16 19:00 Fluoxetine HCl (Prozac) 50 mg DAILY PO 01/13/16 10:00 UNV Mirtazapine (Remeron) 15 mg BEDTIME PO 01/12/16 22:00 UNV Past Medical History Past Medical History: PAST PSYCHIATRIC HISTORY: -He states this is his first psychiatric hospitalization in almost 5 years -Receives outpatient mental health care at [facility] PAST FAMILY PSYCHIATRIC HISTORY: -Noncontributory SOCIAL HISTORY: -Currently lives with his son PAST MEDICAL HISTORY: -Chronic back pain Meds NPU Home Medications Medication Instructions Recorded Confirmed Last Taken Type fluoxetine 40 mg capsule 80 mg PO QAM #60 cap 11/27/19 12/19/19 12/18/19 08:00 Rx lithium carbonate 300 mg capsule 300 mg PO BEDTIME 30 Days #30 cap 11/27/19 12/19/19 12/17/19 20:00 Rx quetiapine 200 mg tablet 200 mg PO .HS 30 Days #30 tab 11/27/19 12/19/19 12/17/19 20:00 Rx buspirone 22.5 mg PO TID 12/19/19 12/19/19 12/18/19 19:00 History Allergies Allergy/AdvReac Type Severity Reaction Status Date / Time tramadol Allergy HIVES Verified 12/19/19 01:52 PFS NPU PFSH: Medical History (Updated 12/19/19 @ 02:05 by Justice Perez MD) Chronic low back pain Disc displacement, cervical H/O degenerative disc disease Hx of fracture of ankle (~05/2018) LEFT ANKLE DR CAGLE IN [facility] 05/2018 Long-term use of high-risk medication Panic disorder [episodic paroxysmal anxiety] Patient is leaving AMA. Smoking Social phobia, unspecified Spondylolisthesis, cervical region Spondylosis without myelopathy or radiculopathy Surgical History Hx of cervical spine surgery (~08/03/16) 08/03/16 C6-7 ACDFF Family History Father , UNKNOWN CAUSE No problems noted. Denies family history of Diabetes Anesthesia complication Bleeding disorder Cancer Social History Smoking and tobacco status: current every day smoker cigarettes Packs smoked pe r day: 0.5 Years cigarettes smoked: 20 [ Other cigarette details: 6 CIGS DAY ] Alcohol intake: never Lives independently: Yes Marital status: Single Current occupational status: disabled History of recent travel: No Mental Status Exam MSE Comments: This is a short but well-nourished, well-developed white male with limited dress, grooming and eye contact. No abnormal movements except for significant psychomotor retardation. Mostly uncooperative with exam in no acute distress. Speech was limited and decreased rate and volume. Mood described as exhausted, affect congruent and subdued. Thought process linear. Thought content: Patient denied suicidal but endorsed homicidal ideation, there were no delusions reported or noted, he denied any visual hallucinations but did endorse hearing voices. Attention and concentration were limited memory level none were formally tested. He is alert and oriented x3. Insight and judgment are limited, impulse control is impaired. Vitals/I&O/Wt Last Vital Signs Temp 97.9 F 12/19/19 14:00 Pulse 107 H 12/19/19 14:00 Resp 18 12/19/19 14:00 BP 124/76 12/19/19 14:00 Pulse Ox 95 12/19/19 14:00 Weight last 48 hrs Weight 65.771 kg Data NPU : 12/19/19 02:10 12/19/19 02:10 A&P Assessment and plan (1) Acute anxiety: Status: Acute (2) Homicidal ideation: Status: Acute (3) Benzodiazepine abuse: Status: Acute (4) Malingering: Status: Acute (5) Substance abuse: Status: Acute (6) Major depression: Status: Acute Qualifiers: Active/Remission status: remission status unspecified Major depression recurrence: recurrent Qualified Code(s): F33.9 - Major depressive disorder, recurrent, unspecified Additional A&P Information This is a 42-year-old female with significant history of substance abuse and hospitalizations with short stays who presents clearly in withdrawal and endorsing lethality but mostly lethargic. 1. Continue current medication. We will discuss increasing medication tomorrow. 2. Continue every 15 minute checks for safety. 3. Encourage individual, group and milieu therapy. 4. Encourage discharge to sober living treatment at the highest level of care to which he is willing to commit. Involuntary Hold Information 96 Hour Hold: 96 Hour Involuntary Admission: No Attestations NPU Medical Necessity Statement*: Inpatient hospitalization is medically necessary, and the clinically appropriate intervention at this time. We will monitor medications and titrate as indicated. He will be in the hospital for over two midnights. Likely length of stay two to four days. Coding Level of Care Code Acute Housecalls Nurse for Giuseppe Arredondo Diagnoses Acute anxiety F41.9 Homicidal ideation R45.850 Benzodiazepine abuse F13.10 Malingering Z76.5 Substance abuse F19.10 Major depression F33.9 Active/Remission status: remission status unspecified Major depression recurrence: recurrent
[2019-12-19 20:53] VITALS: BP 120/74; PULSE 74; RESP 18; TEMP 36.6; O2SAT 93
[2019-12-19] MEDS: lithium carbonate 300 mg Capsule PO (21:21)
[2019-12-19] MEDS: trazodone 50 mg Tablet PO (21:21)
[2019-12-19] MEDS: quetiapine 100 mg Tablet 200 MG PO (21:22)
--- NOTE | 2019-12-19 21:36 | PC.NURSE ---
assessment Pt in his bed resting, diaphoretic, mildly anxious, complains of slight headache. Denies SI/HI. Denies AH/VH. Requested medicaiton to help him rest and feel less anxious. Med nurse notified.
[2019-12-20 06:00] VITALS: BP 116/76; PULSE 86; RESP 16; TEMP 37.2; O2SAT 94
[2019-12-20] MEDS: multivitamin therapeutic Tablet 1 TAB PO (08:23)
[2019-12-20] MEDS: thiamine 100 mg Tablet PO (08:23)
[2019-12-20] MEDS: fluoxetine 20 mg Capsule 80 MG PO (08:23)
[2019-12-20] MEDS: folic acid 1 mg Tablet PO (08:23)
--- NOTE | 2019-12-20 12:26 | PM.NPN ---
Subjective NPU Subjective: Interval history: Lon presents today reporting that he is doing a little better than yesterday. He reports that he has been taking his medication. He reports that the issue has been his use this recently. But he still is fairly lethargic and difficult to arouse. He really had no clear sense of what he would like to do/what his plan is for avoiding this happening regularly. We again talked about increasing his medication however he so lethargic we agreed to wait. Mental Status Exam MSE Comments: This is a short but well-nourished, well-developed white male with limited dress, grooming and eye contact. No abnormal movements except for significant psychomotor retardation. Limited cooperation with exam in no acute distress. Speech was limited and decreased rate and volume. Mood described as still tired, affect congruent and subdued. Thought process linear. Thought content: Patient denied suicidal but endorsed homicidal ideation, there were no delusions reported or noted, he denied any visual hallucinations but did endorse hearing voices. Attention and concentration were limited, memory appeared mostly reliable, but none were formally tested. He is alert and oriented x3. Insight and judgment are limited, impulse control is impaired. Vitals/I&O/Wt Last Vital Signs Temp 98.8 F 12/20/19 14:00 Pulse 81 12/20/19 14:00 Resp 18 12/20/19 14:00 BP 115/73 12/20/19 14:00 Pulse Ox 96 12/20/19 14:00 Weight last 48 hrs Weight 65.771 kg Data NPU : 12/19/19 02:10 12/19/19 02:10 A&P Additional A&P Information (1) Acute anxiety: (2) Homicidal ideation: (3) Benzodiazepine abuse: (4) Malingering: (5) Substance abuse: (6) Major depression: This is a 42-year-old female with significant history of substance abuse and hospitalizations with short stays who presents clearly in withdrawal and endorsing lethality but mostly lethargic. 1. Continue current medication. We will continue to discuss medication adjustments. 2. Continue every 15 minute checks for safety. 3. Encourage individual, group and milieu therapy. 4. Encourage discharge to sober living treatment at the highest level of care to which he is willing to commit. Involuntary Hold Information 96 Hour Hold: 96 Hour Involuntary Admission: No Attestations NPU Medical Necessity Statement*: Inpatient hospitalization is medically necessary, and the clinically appropriate intervention at this time. We will monitor medications and titrate as indicated. Likely length of stay 2-4 days. Coding Level of Care Code Acute Sales Support Consultant for Giuseppe Arredondo
[2019-12-20 14:00] VITALS: BP 115/73; PULSE 81; RESP 18; TEMP 37.1; O2SAT 96
[2019-12-20] MEDS: quetiapine 100 mg Tablet 200 MG PO (20:45)
[2019-12-20] MEDS: trazodone 50 mg Tablet PO (20:46)
[2019-12-20] MEDS: lithium carbonate 300 mg Capsule PO (20:46)
--- NOTE | 2019-12-20 20:48 | PC.NURSE ---
PRN TRAZODONE ADMINISTERED TRAZODONE 50MG PO PER PT REQUEST FOR SLEEP AID. WILL MONITOR FOR MEDICATION EFFECTIVENESS.
[2019-12-20 21:59] VITALS: BP 142/75; PULSE 90; RESP 17; TEMP 36.6; O2SAT 96
[2019-12-21 06:00] VITALS: BP 116/70; PULSE 79; RESP 16; TEMP 36.6; O2SAT 95
[2019-12-21] MEDS: folic acid 1 mg Tablet PO (09:09)
[2019-12-21] MEDS: multivitamin therapeutic Tablet 1 TAB PO (09:09)
[2019-12-21] MEDS: fluoxetine 20 mg Capsule 80 MG PO (09:09)
[2019-12-21] MEDS: thiamine 100 mg Tablet PO (09:09)
[2019-12-21 13:46] VITALS: BP 110/72; PULSE 76; RESP 18; TEMP 36.4; O2SAT 96
[2019-12-21] MEDS: hyDROXYzine 25 mg Capsule 50 MG PO (14:25)
--- NOTE | 2019-12-21 17:36 | P.PN_ITS ---
Subjective NPU Subjective: Interval history: Lon presents today, more alert and endorsing that he is feeling better. He is denying lethality and reports that he is doing good on the medication and he denied any reason for changing or increasing the medication. He reports that he does have a place to stay that is able. Endorses a plan to work with the treatment team tomorrow to look at appropriate discharge options. Mental Status Exam MSE Comments: This is a short but well-nourished, well-developed white male with limited dress, grooming and eye contact. No abnormal movements except for less prominent psychomotor retardation. Cooperative with exam in no acute distress. Speech was decreased rate and volume. Mood described as a little better, affect congruent and less subdued. Thought process organized. Thought content: Patient denied suicidal or homicidal ideation, there were no delusions reported or noted, he denied auditory or visual hallucinations. Attention and concentration were intact and memory appeared mostly reliable, but none were formally tested. He is alert and oriented x3. Insight and judgment are limited, but improving, impulse control is impaired. Vitals/I&O/Wt Last Vital Signs Temp 97.6 F 12/21/19 13:46 Pulse 76 12/21/19 13:46 Resp 18 12/21/19 13:46 BP 110/72 12/21/19 13:46 Pulse Ox 96 12/21/19 13:46 Weight last 48 hrs Weight 58.287 kg Data NPU : 12/19/19 02:10 12/19/19 02:10 A&P Additional A&P Information (1) Acute anxiety: (2) Homicidal ideation: (3) Benzodiazepine abuse: (4) Malingering: (5) Substance abuse: (6) Major depression: This is a 42-year-old female with significant history of substance abuse and hospitalizations with short stays who presents clearly in withdrawal and endorsing lethality but mostly lethargic. 1. Continue current medication. 2. Continue every 15 minute checks for safety. 3. Encourage individual, group and milieu therapy. 4. Encourage discharge to sober living treatment at the highest level of care to which he is willing to commit. Involuntary Hold Information 96 Hour Hold: 96 Hour Involuntary Admission: No Attestations NPU Medical Necessity Statement*: Inpatient hospitalization is medically necessary, and the clinically appropriate intervention at this time. We will monitor medications and titrate as indicated. Likely length of stay 1-3 days. Coding Level of Care Code Acute Assembler Wet Wash for Giuseppe Arredondo
[2019-12-21] MEDS: quetiapine 100 mg Tablet 200 MG PO (20:52)
[2019-12-21] MEDS: lithium carbonate 300 mg Capsule PO (20:52)
[2019-12-21 21:36] VITALS: BP 115/81; PULSE 74; RESP 18; TEMP 36.6; O2SAT 98
[2019-12-22 06:00] VITALS: BP 114/80; PULSE 63; RESP 17; TEMP 36.5; O2SAT 98
[2019-12-22] MEDS: multivitamin therapeutic Tablet 1 TAB PO (08:03)
[2019-12-22] MEDS: thiamine 100 mg Tablet PO (08:04)
[2019-12-22] MEDS: fluoxetine 20 mg Capsule 80 MG PO (08:04)
[2019-12-22] MEDS: folic acid 1 mg Tablet PO (08:04)
--- NOTE | 2019-12-22 11:58 | PM.NDC ---
Diagnoses at Discharge Discharge Diagnosis (1) Acute anxiety: Status: Chronic (2) Homicidal ideation: Status: Resolved (3) Benzodiazepine abuse: Status: Chronic (4) Malingering: Status: Chronic (5) Substance abuse: Status: Chronic (6) Major depression: Status: Resolved Qualifiers: Active/Remission status: remission status unspecified Major depression recurrence: recurrent Qualified Code(s): F33.9 - Major depressive disorder, recurrent, unspecified Reason for Visit Reason for Visit: si/hi Brief History: Lon Curran is a 44 year old male who presented to the emergency room with the following report: Chief Complaint: Psychiatric Symptoms Stated Complaint: si/hi Time Seen by Provider: 12/19/19 01:46 Source: patient and EMS Mode of arrival: EMS Limitations: no limitations History of Present Illness: HPI Narrative: 44-year-old male who presents here with anxiety along with homicidal ideation. Patient states that he has been hearing voices and feels quite anxious and has been having thoughts of hurting people. Patient's been evaluated in the past and states that he has been taking his meds. Denies any worsening improving factors. Associated symptoms: Reports depression and homicidal ideation He was admitted to the neuropsychiatric unit for definitive treatment of those issues. Lon was more or less out of it for the day. Later in the bed with the cover over his head. Made multiple attempts to meet with him and have a more productive conversation without success. He simply reported that he had relapsed, but denied being off of his medication. He denied any substantive changes as I reviewed his previous evaluation with this remote mortgage underwriter and he denied having new issues. He identified knowing he needed to manage his addiction but that he just had a rough time. There was limited conversation and he reported we would be able to talk more when he was more with it. Hospital Course Hospital Course Assessment and plan (1) Acute anxiety: Status: Acute (2) Homicidal ideation: Status: Acute (3) Benzodiazepine abuse: Status: Acute (4) Malingering: Status: Acute (5) Substance abuse: Status: Acute (6) Major depression: Status: Acute Qualifiers: Active/Remission status: remission status unspecified Major depression recurrence: recurrent Qualified Code(s): F33.9 - Major depressive disorder, recurrent, unspecified Additional A&P Information This is a 42-year-old female with significant history of substance abuse and hospitalizations with short stays who presents clearly in withdrawal and endorsing lethality but mostly lethargic. 1. Continue current medication. We will discuss increasing medication tomorrow. 2. Continue every 15 minute checks for safety. 3. Encourage individual, group and milieu therapy. 4. Encourage discharge to sober living treatment at the highest level of care to which he is willing to commit. Hospital day #3: Interval history: Lon presents today reporting that he is doing a little better than yesterday. He reports that he has been taking his medication. He reports that the issue has been his use this recently. But he still is fairly lethargic and difficult to arouse. He really had no clear sense of what he would like to do/what his plan is for avoiding this happening regularly. We again talked about increasing his medication however he so lethargic we agreed to wait. HD#4: Interval history: Lon presents today, more alert and endorsing that he is feeling better. He is denying lethality and reports that he is doing good on the medication and he denied any reason for changing or increasing the medication. He reports that he does have a place to stay that is able. Endorses a plan to work with the treatment team tomorrow to look at appropriate discharge options. Discharge Summary HD#5: Patient petitioned for discharge. He wanted to go home and had a way of getting there. He denied the presence of suicidal and homicidal ideation. We reviewed his medications and discovered that a lithium never level had not been performed after restarting it. A lithium level was drawn and the patient was allowed to return home. Involuntary Hold Information 96 Hour Hold: 96 Hour Involuntary Admission: No Mental Status Exam MSE Comments: Discharge Mental Status Exam: Appearance: hygiene is good; no gross neurological deficits., gait is unremarkable; AIMS=0 Speech: Speech is of normal rate and rhythm and easily understood. Thought processes: Thought processes are abstract. Judgment is adequate for safety. Associations: intact Psychotic processes: There is no indication of guarding or paranoia. There is no attention to the internal stimuli. Auditory and visual hallucinations are denied. Judgment: Insight is fair. Problem solving skills are adequate for safety. Orientation: The patient is oriented to person, place time and situation. Memory: no deficits noted in immediate, intermediate, or remote spheres. Attention: The patient is alert and interpersonally engaged. Language: Verbalizations are coherent. Fund of knowledge: Fund of knowledge is adequate. Affect/Mood: Affect is consistent with a euthymic mood. denied suicidal ideation Affective range is appropriate. Psychosis: perception unimpaired except through cognitive distortion; reality testing intact. Discharge Data Data Completed and Pending: Pending at discharge Category Date Time Status [place] Routine Lab 12/22/19 11:34 Received Labs from last 24 hours 12/22/19 11:34 [place] Pending Vitals: Last Vital Signs Temp 97.7 F 12/22/19 06:00 Pulse 63 12/22/19 06:00 Resp 17 12/22/19 06:00 BP 114/80 12/22/19 06:00 Pulse Ox 98 12/22/19 06:00 Discharge Plan Discharge Patient Disposition: Home Condition: Stable Prescriptions: New folic acid 1 mg Tablet 1 mg PO DAILY Qty: 30 RF: 0 Vitamin B-1 (mononitrate) 100 mg Tablet 100 mg PO DAILY Qty: 30 RF: 0 Continued fluoxetine 40 mg capsule 80 mg PO QAM Qty: 60 RF: 1 lithium carbonate 300 mg capsule 300 mg PO BEDTIME 30 Days Qty: 30 RF: 1 quetiapine [Seroquel] 200 mg tablet 200 mg PO .HS 30 Days Qty: 30 RF: 1 buspirone 15 mg tablet 22.5 mg PO TID RF: 0 Discharge Orders: Discharge Order (Routine); Ordered 12/22/19 Ordered By: Esequiel Kim Referrals: Arelis Nunn, PMHNP [Staff Physician] - 01/16/20 2:00 pm (15 minute medication appointment/NPU follow up) Bakari Hankins MD [Primary Care Provider] - Patient Instructions: Buspirone (By mouth), Fluoxetine (By mouth), [place] (By mouth), Quetiapine (By mouth), Anxiety (DC) Discharge Attestations NPU Time Spent in Discharge Care*: greater than 30 min Status at Discharge: Cognitive status at discharge: cognitively intact, Behavioral status at discharge: cooperative, Coding Level of Care Code Acute Academic Department Chair for Chg Fwd Diagnoses Acute anxiety F41.9 Homicidal ideation R45.850 Benzodiazepine abuse F13.10 Malingering Z76.5 Substance abuse F19.10 Major depression F33.9 Active/Remission status: remission status unspecified Major depression recurrence: recurrent
[2019-12-22 12:11] VITALS: BP 114/80; PULSE 63; RESP 17; TEMP 36.5; O2SAT 98
[2019-12-22 12:30] LABS: Lithium 0.3 mmol/L (0.6-1.2)
== END 2019-12-22 12:25 | disposition home or self-care (01) | DRG 885 ==
LOC: ER 02:12 → NP 03:08
PROVIDERS: Emergency Medicine; Psychiatry & Neurology Psychiatry; Admitting Provider Psychiatry & Neurology Psychiatry; PCP Family Medicine; Visit Provider Psychiatry & Neurology Psychiatry
DX: F33.9 Major depressive disorder, recurrent, unspecified (principal); F41.9 Anxiety disorder, unspecified; Z76.5 Malingerer [conscious simulation]; R45.850 Homicidal ideations; F11.10 Opioid abuse, uncomplicated; F19.10 Other psychoactive substance abuse, uncomplicated; G89.29 Other chronic pain; M54.9 Dorsalgia, unspecified; F17.210 Nicotine dependence, cigarettes, uncomplicated
CPT/HCPCS: 12345; 36415; 80053; 80178; 80306; 80307; 85025; 90686; 99284

== ENCOUNTER → 2020-01-16 07:58 | Outpatient (BNVA) | payer MEDICAID, SELFPAY | PROVIDERS: PCP Family Medicine; Visit Provider Nurse Practitioner | DX: F41.0 Panic disorder [episodic paroxysmal anxiety] (principal); F40.10 Social phobia, unspecified; F10.20 Alcohol dependence, uncomplicated; F12.20 Cannabis dependence, uncomplicated | CPT/HCPCS: 99213 ==

== ENCOUNTER 2020-01-16 22:32 | Inpatient (IN) | payer MEDICAID, SELFPAY ==
[2020-01-16 22:37] VITALS: BP 134/85; PULSE 72; RESP 18; TEMP 36.6; O2SAT 97; BMI 20.7
--- NOTE | 2020-01-16 23:12 | ED_ITS ---
HPI - Psych General: Chief Complaint: Psychiatric Symptoms Stated Complaint: SI/HI Time Seen by Provider: 01/16/20 22:39 History of Present Illness: HPI Narrative: 4-year-old male known to the ER. He presents with his suicidal ideations. States he has repeated thoughts of wanting to harm himself. No specific plan. He has had these thoughts before. He has had a cough, but no fever, diarrhea, shortness of breath, or other recent illnesses. He did have an exposure to COVID-19. complaint: suicidal ideation and feels depressed Onset (ago): hour(s) Duration: constant History of same: Yes Relieving factors: none Exacerbating factors: none Context: recent alcohol abuse Associated psychiatric symptoms: depression and suicidal ideation Associated symptoms: Reports auditory hallucinations; Deny visual hallucinations Treatments prior to arrival: none If self harm: admits thoughts of self harm Review of Systems Const: Denies: fever(s) or chills Eyes: Denies: change in vision ENMT: Denies: odynophagia Card: Denies: chest pain, palpitations or irregular heart rhythm Resp: Reports: non-productive cough; Denies: dyspnea, productive cough or wheezing GI: Denies: abdominal pain, nausea or vomiting : Denies: difficulty urinating or hematuria Musc: Denies: neck pain, joint redness or joint warmth Skin/Breast: Denies: rash or erythema Neuro: Denies: headache(s), dizziness or vertigo Psych: Reports: anxiety and auditory hallucinations; Denies: visual hallucinations PFS ED PFSH: Medical History (Updated 01/16/20 @ 14:10 by Arelis Nunn [facility]) Alcohol dependence, uncomplicated Benzodiazepine abuse Cannabis dependence, uncomplicated Chronic low back pain Disc displacement, cervical H/O degenerative disc disease Hx of fracture of ankle (~05/2018) LEFT ANKLE DR CAGLE IN [facility] 05/2018 Long-term use of high-risk medication Malingering Panic disorder [episodic paroxysmal anxiety] Patient is leaving AMA. Smoking Social phobia, unspecified Spondylolisthesis, cervical region Spondylosis without myelopathy or radiculopathy Substance abuse Surgical History Hx of cervical spine surgery (~08/03/16) 08/03/16 C6-7 ACDFF Family History Father , UNKNOWN CAUSE No problems noted. Denies family history of Diabetes Anesthesia complication Bleeding disorder Cancer Social History Smoking and tobacco status: current every day smoker cigarettes Packs smoked per day: 0.5 Years cigarettes smoked: 20 [ Other cigarette details: 6 CIGS DAY ] Alcohol intake: never Lives independently: Yes Marital status: Single Current occupational status: disabled History of recent travel: No Physical Exam Const: GENERAL APPEARANCE: well developed ORIENTATION/CONSCIOUSNESS: Yes oriented to person, Yes oriented to place and Yes oriented to time HENMT: COMMON NORMALS: normocephalic, external ears normal and Normal external nose present HEAD & SCALP: normocephalic; no scalp tenderness FACE & SINUS: normal facial exam NOSE: Normal external nose present and No nasal discharge present EXTERNAL EAR: Yes external ears normal MOUTH: tongue normal TEETH & GINGIVA: no abnormal tooth and associated gingiva THROAT: posterior oropharynx normal; no peritonsillar mass Eye: COMMON NORMALS: Equal, round and reactive pupils present, EOMs intact bi laterally and conjunctivae normal EYELID: eyelids normal CONJUNCTIVA: Yes conjunctivae normal PUPIL: Yes Equal, round and reactive pupils present Neck/C-Spine: GENERAL: No tracheal deviation Chest: COMMONS NORMALS: normal inspection of the chest CHEST: No tenderness Resp: COMMON NORMALS: clear to auscultation bilaterally EFFORT & INSPECTION: No tachypneic, No respiratory distress, No retractions, No uses accessory muscles and No tracheal deviation AUSCULTATION: clear to auscultation bilaterally, no rhonchi, no wheezes and lung sounds not diminished Cardio: COMMON NORMALS: regular rate and regular rhythm RATE: regular rate RHYTHM: regular rhythm HEART SOUNDS: no murmurs PERIPHERAL PULSES: r adial pulses present GI: INSPECTION: No abdominal distension AUSCULTATION: No Hyperactive bowel sounds present and No Hypoactive bowel sounds present PALPATION: No Guarding due to palpation present (GI) Neuro: SENSORIUM/ORIENTATION: Yes oriented to person, Yes oriented to place and Yes oriented to time Psych: COMMON NORMALS: speech normal APPEARANCE: Yes unkempt ATTITUDE: Yes Guarded attititude/behavior present ACTIVITY/MOTOR BEHAVIOR: Yes psychomotor agitation SPEECH: Yes normal speech MOOD & AFFECT: Yes depressed mood THOUGHT PROCESS: Circumstantial thought process present THOUGHT CONTENT: Yes Suicidality present MDM - Psych MDM Narrative: Medical decision making narrative: 44-year-old male, states he has been having repeated suicidal thoughts. He is mildly intoxicated with an alcohol level of 210. He is positive for marijuana. He has a leukocytosis but without left shift. He states he has had a mild cough. He is rapid Covid negative. X-ray is pending. Other laboratory is benign. Spoke with Dr. Collins, who will admit to NPU Lab Data: Labs: Lab Results 01/16/20 01/16/20 01/16/20 Range/Units 22:54 22:54 22:54 WBC 15.0 H (4.0-10.0) 10^3/ uL RBC 4.67 (4.1-5.3) 10^6/u L Hgb 14.7 (11.7-16.6) g/dL Hct 43.7 (42.0-52.0) % MCV 93.6 (80-94) fL MCH 31.5 (28.0-34.0) pg MCHC 33.6 (30.0-36.0) g/dL RDW 13.1 (12.1-15.1) % Plt Count 214 (130-400) 10^3/c mm MPV 9.8 (7.4-10.4) fL Neut % (Auto) 59.8 % Lymph % (Auto) 34.2 % [place] % (Auto) 4.7 % Eos % (Auto) 0.5 % Baso % (Auto) 0.4 % Neut # (Auto) 8.99 H (1.8-7.7) 10^3/u L Lymph # (Auto) 5.1 H (0.8-4.8) 10^3/u L [place] # (Auto) 0.7 (0.2-0.9) 10^3/u L Eos # (Auto) 0.1 (0.0-0.8) 10^3/u L Baso # (Auto) 0.1 (0.0-0.1) 10^3/u L Nucleated RBC % (a uto) 0 % Nucleated RBCs # 0.0 /100WBC Sodium 138 (136-145) mmol/L Potassium 3.6 (3.5-5.1) mmol/L Chloride 99 (98-107) mmol/L Carbon Dioxide 25 (22-29) mmol/L Anion Gap 17.6 (5-19) BUN 9 (6-20) mg/dL Creatinine 0.8 (0.7-1.2) mg/dL GFR Calculation 106.0 (90-130) mL/min Glucose 84 (65-115) mg/dL Calculated Osmolal ity 284 L (285-295) mOsm/k g Calcium 9.6 (8.5-10.5) mg/dL Total Bilirubin 0.2 (0.15-1.2) mg/dL AST 21 (0-40) U/L ALT 14 (0-41) U/L Alkaline Phosphata se 77 (40-130) IU/L Total Protein 8.3 (6.6-8.7) g/dL Albumin 5.2 (3.5-5.2) g/dL Globulin 3.1 (1.3-4.6) g/dL Urine Color Straw (Yellow) Urine Appearance Clear (CLEAR) Urine pH 5.0 (5-7) Ur Specific Gravit y 1.005 (1.005-1.030) Urine Protein Neg (Negative) Urine Glucose (UA) Norm (Normal) Urine Ketones Negative (Negative) Urine Blood 2+ H (Negative) Urine Nitrate Negative (Negative) Urine Bilirubin Neg (Negative) Urine Urobilinogen Norm (Negative) mg/dL Ur Leukocyte Milvia ase Negative (Negative) Urine RBC Rare (0-2) /hpf Urine WBC None (0-5) /hpf Ur Squamous Epith Cells Rare (0-5) /hpf Amorphous Sediment Not Reportable Urine Bacteria Trace (NONE) /hpf Salicylates < 0.3 L (3-10) mg/dL Urine Opiates Scre en (Negative) ng/mL Acetaminophen < 5.0 L (10-30) ug/mL Ur Barbiturates Sc reen (Negative) ng/mL Ur Phencyclidine S crn (Negative) ng/mL Ur Amphetamines Sc reen (Negative) ng/mL U Benzodiazepines Scrn (Negative) ng/mL Urine Cocaine Scre en (Negative) ng/mL U Marijuana (THC) Screen (Negative) ng/mL Ethyl Alcohol 210 H (0-10) mg/dL SARS-CoV-2 Ag (Rap id) (Negative) 01/16/20 01/16/20 Range/Units 22:54 23:03 WBC (4.0-10.0) 10^3/ uL RBC (4.1-5.3) 10^6/u L Hgb (11.7-16.6) g/dL Hct (42.0-52.0) % MCV (80-94) fL MCH (28.0-34.0) pg MCHC (30.0-36.0) g/dL RDW (12.1-15.1) % Plt Count (130-400) 10^3/c mm MPV (7.4-10.4) fL Neut % (Auto) % Lymph % (Auto) % [place] % (Auto) % Eos % (Auto) % Baso % (Auto) % Neut # (Auto) (1.8-7.7) 10^3/u L Lymph # (Auto) (0.8-4.8) 10^3/u L [place] # (Auto) (0.2-0.9) 10^3/u L Eos # (Auto) (0.0-0.8) 10^3/u L Baso # (Auto) (0.0-0.1) 10^3/u L Nucleated RBC % (a uto) % Nucleated RBCs # /100WBC Sodium (136-145) mmol/L Potassium (3.5-5.1) mmol/L Chloride (98-107) mmol/L Carbon Dioxide (22-29) mmol/L Anion Gap (5-19) BUN (6-20) mg/dL Creatinine (0.7-1.2) mg/dL GFR Calculation (90-130) mL/min Glucose (65-115) mg/dL Calculated Osmolal ity (285-295) mOsm/k g Calcium (8.5-10.5) mg/dL Total Bilirubin (0.15-1.2) mg/dL AST (0-40) U/L ALT (0-41) U/L Alkaline Phosphata se (40-130) IU/L Total Protein (6.6-8.7) g/dL Albumin (3.5-5.2) g/dL Globulin (1.3-4.6) g/dL Urine Color (Yellow) Urine Appearance (CLEAR) Urine pH (5-7) Ur Specific Gravit y (1.005-1.030) Urine Protein (Negative) Urine Glucose (UA) (Normal) Urine Ketones (Negative) Urine Blood (Negative) Urine Nitrate (Negative) Urine Bilirubin (Negative) Urine Urobilinogen (Negative) mg/dL Ur Leukocyte Milvia ase (Negative) Urine RBC (0-2) /hpf Urine WBC (0-5) /hpf Ur Squamous Epith Cells (0-5) /hpf Amorphous Sediment Urine Bacteria (NONE) /hpf Salicylates (3-10) mg/dL Urine Opiates Scre en Negative (Negative) ng/mL Acetaminophen (10-30) ug/mL Ur Barbiturates Sc reen Negative (Negative) ng/mL Ur Phencyclidine S crn Negative (Negative) ng/mL Ur Amphetamines Sc reen Negative (Negative) ng/mL U Benzodiazepines Scrn Negative (Negative) ng/mL Urine Cocaine Scre en Negative (Negative) ng/mL U Marijuana (THC) Screen Positive H (Negative) ng/mL Ethyl Alcohol (0-10) mg/dL SARS-CoV-2 Ag (Rap id) Negative (Negative) Discharge Plan Discharge Admit Provider: Misael Collins Coding Level of Care Code ED Jitterbug Operator for Vincentg Fwd Exam Comprehensive
[2020-01-16] MEDS: LORazepam 2 mg Tablet PO (23:14)
[2020-01-16 23:23] LABS: Basophils # 0.1 10^3/uL (0.0-0.1); Basophils % 0.4 %; Eosinophils # 0.1 10^3/uL (0.0-0.8); Eosinophils % 0.5 %; Hematocrit 43.7 % (42.0-52.0); Hemoglobin 14.7 g/dL (11.7-16.6); Lymphocytes # 5.1 10^3/uL (0.8-4.8); Lymphocytes % 34.2 %; Mean Corpuscular HGB Conc 33.6 g/dL (30.0-36.0); Mean Corpuscular Hemoglobin 31.5 pg (28.0-34.0); Mean Corpuscular Volume 93.6 fL (80-94); Mean Platelet Volume 9.8 fL (7.4-10.4); Monocytes # 0.7 10^3/uL (0.2-0.9); Monocytes % 4.7 %; Neutrophils # 8.99 10^3/uL (1.8-7.7); Neutrophils % 59.8 %; Nucleated Red Blood Cells % 0 %; Platelet Count 214 10^3/cmm (130-400); Red Blood Count 4.67 10^6/uL (4.1-5.3); Red Cell Distribution Width 13.1 % (12.1-15.1)
[2020-01-16 23:35] LABS: Bilirubin Urine Neg (Negative); Blood Urine 2+ (Negative); Glucose Urine UA Norm (Normal); Ketones Urine Negative (Negative); Nitrate Urine Negative (Negative); Protein Urine Neg (Negative); Specific Gravity, Urine 1.005 (1.005-1.030); Urine Appearance Clear (CLEAR); Urine Color Straw (Yellow)
[2020-01-16 23:36] LABS: Add Urine Culture? No; Add Urine Microscopic? YES; Bacteria Urine TRACE /hpf; Leukocyte Esterase Urine Negative (Negative); RBC Urine RARE /hpf (0-2); Squamous Epithelial Cell Urine RARE /hpf (0-5); Urobilinogen Urine Norm (Negative)
[2020-01-16 23:47] LABS: Amphetamines Screen Urine Negative (Negative); Barbiturates Screen Urine Negative (Negative); Benzodiazepines Screen Urine Negative (Negative); Cocaine Screen Urine Negative (Negative); Opiate Screen Urine Negative (Negative); PCP Screen Urine Negative (Negative); THC Screen Urine Positive (Negative)
[2020-01-16 23:52] LABS: Alanine Aminotransferase 14 U/L (0-41); Albumin Level 5.2 g/dL (3.5-5.2); Alcohol Level 210 mg/dL (0-10); Alkaline Phosphatase 77 IU/L (40-130); Anion Gap 17.6 (5-19); Aspartate Amino Transferase 21 U/L (0-40); Blood Urea Nitrogen 9 mg/dL (6-20); Calcium 9.6 mg/dL (8.5-10.5); Carbon Dioxide 25 mmol/L (22-29); Chloride 99 mmol/L (98-107); Globulin 3.1 g/dL (1.3-4.6); Glucose 84 mg/dL (65-115); Osmolality Calculated 284 mOsm/kg (285-295); Potassium 3.6 mmol/L (3.5-5.1); Sodium 138 mmol/L (136-145); Total Bilirubin 0.2 mg/dL (0.15-1.2); Total Protein 8.3 g/dL (6.6-8.7)
[2020-01-16 23:55] LABS: Acetaminophen < 5.0 ug/mL (10-30); Salicylate < 0.3 mg/dL (3-10)
[2020-01-16 23:58] LABS: SARS Covid-2 Antigen Negative (Negative)
--- NOTE | 2020-01-17 00:06 | XRR_ITS ---
PROCEDURE INFORMATION: Exam: XR Chest, 1 View Exam date and time: 01/17/2020 12:09 AM Age: 44 years old Clinical indication: Cough and shortness of breath; Additional info: Screen TECHNIQUE: Imaging protocol: XR of the chest Views: 1 view. COMPARISON: No relevant prior studies available. FINDINGS: Lungs: 5 mm calcified granuloma left lung base. The lungs are hyperinflated, consistent with COPD. No consolidative pulmonary infiltrate noted. Pleural space: No pleural effusion. No pneumothorax. Heart/Mediastinum: No cardiomegaly. Bones/joints: Postop change of the cervical spine. XR/XR chest 1V [id number] IMPRESSION: 1. The lungs are hyperinflated, consistent with COPD. 2. No consolidative pulmonary infiltrate noted.
[2020-01-17] MEDS: ziprasidone 20 mg/mL SDV 10 MG IM (00:24)
[2020-01-17 00:32] VITALS: BP 132/83; PULSE 69; O2SAT 98
[2020-01-17 00:33] VITALS: BP 114/73; PULSE 83; RESP 18; TEMP 36.6; O2SAT 94
[2020-01-17 00:43] LABS: Lithium 0.2 mmol/L (0.6-1.2)
[2020-01-17 06:00] VITALS: BP 121/71; PULSE 78; RESP 15; TEMP 36.8; O2SAT 93
[2020-01-17] MEDS: multivitamin therapeutic Tablet 1 TAB PO (08:13)
[2020-01-17] MEDS: fluoxetine 20 mg Capsule 80 MG PO (08:13)
[2020-01-17] MEDS: thiamine 100 mg Tablet PO (08:13)
[2020-01-17] MEDS: folic acid 1 mg Tablet PO (08:13)
[2020-01-17 13:28] VITALS: BP 135/86; PULSE 100; RESP 18; TEMP 37.1
--- NOTE | 2020-01-17 17:10 | PM.NHP ---
Providers/Chief Complaint Admitting Physician: Misael Collins MD Primary Care Provider: Bakari Hankins MD Chief Complaint: SI/HI HPI NPU History of Present Illness Lon Curran is a 44 year old male who presented to the emergency department with the following report: Chief Complaint: Psychiatric Symptoms Stated Complaint: SI/HI Time Seen by Provider: 01/16/20 22:39 History of Present Illness: HPI Narrative: 4-year-old male known to the ER. He presents with his suicidal ideations. States he has repeated thoughts of wanting to harm himself. No specific plan. He has had these thoughts before. He has had a cough, but no fever, diarrhea, shortness of breath, or other recent illnesses. He did have an exposure to COVID-19. complaint: suicidal ideation and feels depressed Onset (ago): hour(s) Duration: constant History of same: Yes Relieving factors: none Exacerbating factors: none Context: recent alcohol abuse Associated psychiatric symptoms: depression and suicidal ideation Associated symptoms: Reports auditory hallucinations; Deny visual hallucinations Treatments prior to arrival: none If self harm: admits thoughts of self harm. He was admitted to the neuropsychiatric unit for definitive treatment of those issues. He presents today reporting that he is getting drunk in getting himself worked up. He says that he had exposure to Covid or least people who are being tested for Covid. And that got infrequent and led to him coming to the hospital and feeling the way that he did. He reports that he has been taking his medication and off on investigation it was noted that he had a appointment with a psychiatrist yesterday. He denied any significant changes. He reports he actually has been doing a little better recently and reports he just had a bad day. We discussed the risk benefits and alternatives of possibly discharging him in the morning if he continues to feel safe and fine and he understood and agreed to proceed as is documented in this note. An excerpt from his last note is included below for additional information, as he tells this mortgage underwriter that there are no substantive changes. Per his 12/19/2019 inpatient [facility] psychiatric eval: History of Present Illness Lon Curran is a 44 year old male who presented to the emergency room with the following report: Chief Complaint: Psychiatric Symptoms Stated Complaint: si/hi Time Seen by Provider: 12/19/19 01:46 Source: patient and EMS Mode of arrival: EMS Limitations: no limitations History of Present Illness: HPI Narrative: 44-year-old male who presents here with anxiety along with homicidal ideation. Patient states that he has been hearing voices and feels quite anxious and has been having thoughts of hurting people. Patient's been evaluated in the past and states that he has been taking his meds. Denies any worsening improving factors. Associated symptoms: Reports depression and homicidal ideation He was admitted to the neuropsychiatric unit for definitive treatment of those issues. Lon was more or less out of it for the day. Later in the bed with the cover over his head. Made multiple attempts to meet with him and have a more productive conversation without success. He simply reported that he had relapsed, but denied being off of his medication. He denied any substantive changes as I reviewed his previous evaluation with this mortgage underwriter and he denied having new issues. He identified knowing he needed to manage his addiction but that he just had a rough time. There was limited conversation and he reported we would be able to talk more when he was more with it. Per his 09/25/2019 [facility] inpatient psychiatric evaluation: History of Present Illness Lon Curran is a 44 year old male who presented to the emergency room reporting that he was having thoughts to kill people. He was endorsing depression and was brought in on observation for definitive treatment of those issues. Today he presents with his medication bottles and a clear indication that he is overusing them. We have a bottle that is dated 09-03 that is empty and a bottle that is dated 09-15 that should not have been used, but already has thirteen more pills missing, if you ignore the previous bottle. We had a discussion and I explained to him that we would not be prescribing that medication going forward and that we would be identifying to his provider that we do not believe it is a good idea. He initially lobbied that we just decrease it to one a day and I was clear ultimately that his behavior with Klonopin is clearly suggesting that it is an inappropriate medication for him to have. We discussed that we would look at the possibility of Propranolol or Neurontin or some other non-addictive agent if he were to choose to stay and that the likelihood is that we would consider discharge tomorrow barring some clear indication of why he should stay. An excerpt from his previous hospitalization is included because there have been no substantive changes in his historical data. I do note that he originally tried to tell this story to that story to explain the absence of the medication, but as we discussed, even if someone took the medication, what it demonstrates is that he is not currently in a position to keep his script properly protected even from someone else or himself. Per 09/18/2019 eval: History of Present Illness Lon Curran is a 44 year old male Lon presents today after presenting to the emergency room the day of discharge reporting suicidal and homicidal thoughts, and inability to contract for safety, as well as depression, and so he was admitted to the neuropsychiatric unit for observation for these issues. Prior to seeing this mortgage underwriter, he was noted to have snuck in contraband and had some pills both in his shoes and in his rectum. When he was seen, he was more or less unresponsive to questions, basically saying ?I don?t know? and denying that this has a malingering element to it. Prior to discharge, the last thing I had said to him was ?are you sure you?re actually ready to be discharged, and that we are not going to see you back in a day or so?, and he assured us that would not happen and he did not even make it five or six hours. He reported that his significant other had given him his medication, but not his Klonopin, but denied that this had anything to do with the Klonopin. He agreed that we would be able to speak to her regarding where this medication is, because it is illegal for anyone other than the designated person that it is prescribed to, taking a controlled substance. Additionally, there were concerns that we discussed about this being just a place for him to stay. He told multiple different stories that they were splitting up, but then saying that they have a kid together, and he could live there, then changing his story that he can stay with his mom, so he was hard to arouse, but was telling different versions of different stories. In addition to that, we were contacted by the police surrounding wanting to have a conversation with him, knowing he was here, and saying they needed to interview him about something, so there may be another reason why he is avoiding being out of the hospital. I discussed that I would give him the next 24 hours, but the likelihood is that barring that we have a sound clinical reason to continue his hospitalization, that there would be a likely discharge tomorrow. Excerpt from his last hospitalization is included below, as there have been no substantive changes to his history. Per last [facility] eval 09/14/19: History of Present Illness Lon Curran is a 44 year old male Lon presented to the emergency room endorsing suicidal thoughts and not being well overall, feeling depressed, and somewhat vague, but unable to contract for safety. He was admitted to the neuropsychiatric unit for definitive treatment of those issues. Today he continues to endorse just not feeling well and feeling like he ?needed a break.?. He endorsed that he had been taking his medication, but he did not feel that it had been that effective. He endorsed a desire to have the Klonopin increased to three times a day from his current twice a day dosing. We were working to get verification of the exact doses and agreed to restart medications as we had verification. He endorsed that he was also taking Seroquel, Prozac, and other medication, but seemed to focus on the increase in the Klonopin. He was not a great historian but did review his last inpatient hospitalization with this mortgage underwriter and endorsed that there had not been substantive changes from that time. An excerpt of that note is included below. He endorsed past suicide attempts and feeling unsafe at this point. Date of Service: Jan 12, 2016 Chief Complaint: Suicidal and homicidal ideation HPI: Mr. Cruran is a 40-year-old male who is no [facility] with previous diagnosis of depression and anxiety, who was admitted under a 96 hour hold for the expression of suicidal and homicidal ideation in the emergency department. Patient reports that he's been feeling increasingly frustrated and the transition between Medicaid programs which has resulted in not being able to get his medications. He is a patient over at the [facility] pain clinic, and also over at [facility], and he is prescribed mental health and pain medications. He states that he's been out of his medications for some weeks now because he is unable to afford the medicines without coverage. States that yesterday in his attempt to get his prescriptions, when he learned that there were not covered by his insurance, he became acutely frustrated and angry and expressed suicidal and homicidal ideation. As he presents today he denies that prior to this that he was experiencing any significant mood symptoms, but he has been fatigued with difficulty with sleep, associated with his chronic pain. He denies any psychotic symptoms, and denies any symptoms consistent with rmaona, hypomania, PTSD. He frankly and emphatically denies any suicidal homicidal ideation today and is able to contract for safety in the community. Allergies: Coded Allergies: TRAMADOL (Verified Allergy, Intermediate, RASH, HIVES, 10/25/12) Active Meds: Current Hospital Medications: Medications (Trade) Dose Ordered Sig/Alix Route PRN Reason Start Time Stop Time Status Last Admin Dose Admin Lorazepam (Ativan Tab) 0.5 mg Q4H PRN PO FOR MILD ANXIETY 01/11/16 19:00 Lorazepam (Ativan Tab) 1 mg Q4H PRN PO FOR MODERATE ANXIETY 01/11/16 19:00 Lorazepam (Ativan Tab) 2 mg Q4H PRN PO FOR SEVERE ANXIETY 01/11/16 19:00 Lorazepam (Ativan Inj) 2 mg Q4H PRN IM For Severe Aggression 01/11/16 19:00 Haloperidol Lactate (Haldol Inj) 5 mg Q4H PRN IM Severe Aggression 01/11/16 19:00 Diphenhydramine HCl (Benadryl Inj) 50 mg ONCE PRN IV Severe Extrapyramidal Symptoms 01/11/16 19:00 Benztropine Mesylate (Cogentin Tab) 1 mg BID PRN PO Mild Extrapyramidal symptoms 01/11/16 19:00 Benztropine Mesylate (Cogentin Inj) 1 mg ONCE PRN IM Severe Extrapyramidal Symptom 01/11/16 19:00 Acetaminophen (Tylenol Tab) 650 mg Q4H PRN PO FOR MILD PAIN 01/11/16 19:00 01/11/16 21:29 Trazodone HCl (Trazodone) 50 mg BEDTIME PRN PO FOR SLEEP 01/11/16 19:00 01/11/16 21:28 Nicotine (Nicoderm Patch) 21 mg DAILY PRN TD FOR WITHDRAWAL 01/11/16 19:00 Nicotine Polacrilex (Nicotine Gum) 2 mg Q2H PRN PO Withdrawal 01/11/16 19:00 Haloperidol (Haldol Tab) 5 mg Q4H PRN PO For agitation 01/11/16 19:00 Lorazepam (Ativan Tab) 2 mg Q4H PRN PO FOR AGITATION 01/11/16 19:00 Fluoxetine HCl (Prozac) 50 mg DAILY PO 01/13/16 10:00 UNV Mirtazapine (Remeron) 15 mg BEDTIME PO 01/12/16 22:00 UNV Past Medical History Past Medical History: PAST PSYCHIATRIC HISTORY: -He states this is his first psychiatric hospitalization in almost 5 years -Receives outpatient mental health care at [facility] PAST FAMILY PSYCHIATRIC HISTORY: -Noncontributory SOCIAL HISTORY: -Currently lives with his son PAST MEDICAL HISTORY: -Chronic back pain Meds NPU Home Medications Medication Instructions Recorded Confirmed Last Taken Type folic acid 1 mg PO DAILY #30 tab 12/22/19 01/17/20 01/16/20 Rx thiamine mononitrate (vit B1) 100 mg PO DAILY #30 tab 12/22/19 01/17/20 01/16/20 Rx [Vitamin B-1 (mononitrate)] buspirone 15 mg tablet 15 mg PO TID #90 tab 01/16/20 01/17/20 01/16/20 Rx fluoxetine 40 mg capsule 80 mg PO QAM #60 cap 01/16/20 01/17/20 01/16/20 Rx lithium carbonate 300 mg capsule 300 mg PO BEDTIME 30 Days #30 cap 01/16/20 01/17/20 01/16/20 Rx quetiapine 200 mg tablet 200 mg PO .HS 30 Days #30 tab 01/16/20 01/17/20 01/16/20 Rx Allergies Allergy/AdvReac Type Severity Reaction Status Date / Time tramadol Allergy HIVES Verified 12/19/19 01:52 PFS NPU PFSH: Medical History (Updated 01/16/20 @ 14:10 by Arelis Nunn [facility]) Alcohol dependence, uncomplicated Benzodiazepine abuse Cannabis dependence, uncomplicated Chronic low back pain Disc displacement, cervical H/O degenerative disc disease Hx of fracture of ankle (~05/2018) LEFT ANKLE DR CAGLE IN [facility] 05/2018 Long-term use of high-risk medication Malingering Panic disorder [episodic paroxysmal anxiety] Patient is leaving AMA. Smoking Social phobia, unspecified Spondylolisthesis, cervical region Spondylosis without myelopathy or radiculopathy Substance abuse Surgical History Hx of cervical spine surgery (~08/03/16) 08/03/16 C6-7 ACDFF Family History Father , UNKNOWN CAUSE No problems noted. Denies family history of Diabetes Anesthesia complication Bleeding disorder Cancer Social History Smoking and tobacco status: current every day smoker cigarettes Packs smoked per day: 0.5 Years cigarettes smoked: 20 [ Other cigarette details: 6 CIGS DAY ] Alcohol intake: never Lives independently: Yes Marital status: Single Current occupational status: disabled History of recent travel: No Mental Status Exam MSE Comments: This is a underweight with a well-developed white male with limited dress, grooming and eye contact. No abnormal movements except for psychomotor retardation. Cooperative with exam in no acute distress. Speech was decreased rate and volume. Mood described as a little better affect subdued. Thought process organized. Thought content: Patient denied suicidal or homicidal ideations, there were no delusions reported or noted, he denied any auditory or visual hallucinations. Attention and concentration were intact and memory appeared reliable but none were formally tested. He is alert and oriented x3. Insight and judgment are limited impulse control is limited. Vitals/I&O/Wt Last Vital Signs Temp 98.8 F 01/17/20 20:57 Pulse 79 01/17/20 20:57 Resp 16 01/17/20 20:57 BP 130/80 01/17/20 20:57 Pulse Ox 94 01/17/20 20:57 Weight last 48 hrs Weight 63.503 kg Data NPU : 01/16/20 22:54 01/16/20 22:54 A&P Assessment and plan (1) Cannabis dependence, uncomplicated: Status: Acute (2) Alcohol dependence, uncomplicated: Status: Acute (3) Anxiety: Status: Acute (4) Outbursts of anger: Status: Acute (5) Panic disorder [episodic paroxysmal anxiety]: Status: Acute (6) Social phobia, unspecified: Status: Acute Additional A&P Information This is a 44-year-old white male who presents with significant stress after exposure of family to Covid with intoxication and anxiety but reportedly on his medication. 1. Continue current medication. 2. Continue every 15 minute checks for safety. 3. Encourage individual, group and milieu therapy. 4. Encourage follow-up with sober living treatment at the highest level care to which he is willing to commit. 5. We will evaluate for the presence of any credible lethality otherwise we will likely discharge tomorrow. 6. We will move patient to other side of the unit to quarantine from other patients. Involuntary Hold Information 96 Hour Hold: 96 Hour Involuntary Admission: No Attestations NPU Medical Necessity Statement*: Inpatient hospitalization is medically necessary and the clinically appropriate intervention at this time. We will monitor medications and make changes as indicated. He will be in the hospital for over 2 midnights. Likely length of stay 2 to 3 days. Coding Level of Care Code Acute [employer] Diagnoses Cannabis dependence, uncomplicated F12.20 Alcohol dependence, uncomplicated F10.20 Anxiety F41.9 Outbursts of anger R45.4 Panic disorder [episodic paroxysmal anxiety] F41.0 Social phobia, unspecified F40.10
[2020-01-17 20:57] VITALS: BP 130/80; PULSE 79; RESP 16; TEMP 37.1; O2SAT 94
[2020-01-17] MEDS: quetiapine 100 mg Tablet 200 MG PO (21:23)
[2020-01-17] MEDS: lithium carbonate 300 mg Capsule PO (21:23)
[2020-01-18 06:00] VITALS: BP 116/70; PULSE 91; RESP 15; TEMP 36.9; O2SAT 96
[2020-01-18] MEDS: thiamine 100 mg Tablet PO (08:06)
[2020-01-18] MEDS: multivitamin therapeutic Tablet 1 TAB PO (08:06)
[2020-01-18] MEDS: folic acid 1 mg Tablet PO (08:06)
[2020-01-18] MEDS: fluoxetine 20 mg Capsule 80 MG PO (08:07)
--- NOTE | 2020-01-18 10:28 | P.DS_ITS ---
Diagnoses at Discharge Discharge Diagnosis (1) Cannabis dependence, uncomplicated: Status: Acute (2) Alcohol dependence, uncomplicated: Status: Acute (3) Anxiety: Status: Acute Permanent problem details: Patient leaving AMA. (4) Outbursts of anger: Status: Acute Permanent problem details: Patient is leaving AMA. (5) Panic disorder [episodic paroxysmal anxiety]: Status: Acute Permanent problem details: Patient is leaving AMA. (6) Social phobia, unspecified: Status: Acute Reason for Visit Reason for Visit: SI/HI Brief History: History of Present Illness Lon Curran is a 44 year old male who presented to the emergency department with the following report: Chief Complaint: Psychiatric Symptoms Stated Complaint: SI/HI Time Seen by Provider: 01/16/20 22:39 History of Present Illness: HPI Narrative: 4-year-old male known to the ER. He presents with his suicidal ideations. States he has repeated thoughts of wanting to harm himself. No specific plan. He has had these thoughts before. He has had a cough, but no fever, diarrhea, shortness of breath, or other recent illnesses. He did have an exposure to COVID-19. MD complaint: suicidal ideation and feels depressed Onset (ago): hour(s) Duration: constant History of same: Yes Relieving factors: none Exacerbating factors: none Context: recent alcohol abuse Associated psychiatric symptoms: depression and suicidal ideation Associated symptoms: Reports auditory hallucinations; Deny visual hallucinations Treatments prior to arrival: none If self harm: admits thoughts of self harm. He was admitted to the neuropsychiatric unit for definitive treatment of those issues. He presents today reporting that he is getting drunk in getting himself worked up. He says that he had exposure to Covid or least people who are being tested for Covid. And that got infrequent and led to him coming to the hospital and feeling the way that he did. He reports that he has been taking his medication and off on investigation it was noted that he had a appointment with a psychiatrist yesterday. He denied any significant changes. He reports he actually has been doing a little better recently and reports he just had a bad day. We discussed the risk benefits and alternatives of possibly discharging him in the morning if he continues to feel safe and fine and he understood and agreed to proceed as is documented in this note. An excerpt from his last note is included below for additional information, as he tells this commercial insurance underwriter that there are no substantive changes. Per his 12/19/2019 inpatient [facility] psychiatric eval: History of Present Illness Lon Curran is a 44 year old male who presented to the emergency room with the following report: Chief Complaint: Psychiatric Symptoms Stated Complaint: si/hi Time Seen by Provider: 12/19/19 01:46 Source: patient and EMS Mode of arrival: EMS Limitations: no limitations History of Present Illness: HPI Narrative: 44-year-old male who presents here with anxiety along with homicidal ideation. Patient states that he has been hearing voices and feels quite anxious and has been having thoughts of hurting people. Patient's been evaluated in the past and states that he has been taking his meds. Denies any worsening improving factors. Associated symptoms: Reports depression and homicidal ideation He was admitted to the neuropsychiatric unit for definitive treatment of those issues. Lon was more or less out of it for the day. Later in the bed with the cover over his head. Made multiple attempts to meet with him and have a more productive conversation without success. He simply reported that he had relapsed, but denied being off of his medication. He denied any substantive changes as I reviewed his previous evaluation with this commercial insurance underwriter and he denied having new issues. He identified knowing he needed to manage his addiction but that he just had a rough time. There was limited conversation and he reported we would be able to talk more when he was more with it. Per his 09/25/2019 [facility] inpatient psychiatric evaluation: History of Present Illness Lon Curran is a 44 year old male who presented to the emergency room reporting that he was having thoughts to kill people. He was endorsing depression and was brought in on observation for definitive treatment of those issues. Today he presents with his medication bottles and a clear indication that he is overusing them. We have a bottle that is dated 9 that is empty and a bottle that is dated 09-15 that should not have been used, but already has thirteen more pills missing, if you ignore the previous bottle. We had a discussion and I explained to him that we would not be prescribing that medication going forward and that we would be identifying to his provider that we do not believe it is a good idea. He initially lobbied that we just decrease it to one a day and I was clear ultimately that his behavior with Klonopin is clearly suggesting that it is an inappropriate medication for him to have. We discussed that we would look at the possibility of Propranolol or Neurontin or some other non-addictive agent if he were to choose to stay and that the likelihood is that we would consider discharge tomorrow barring some clear indication of why he should stay. An excerpt from his previous hospitalization is included because there have been no substantive changes in his historical data. I do note that he originally tried to tell this story to that story to explain the absence of the medication, but as we discussed, even if someone took the medication, what it demonstrates is that he is not currently in a position to keep his script properly protected even from someone else or himself. Per 09/18/2019 eval: History of Present Illness Lon Curran is a 44 year old male Lon presents today after presenting to the emergency room the day of discharge reporting suicidal and homicidal thoughts, and inability to contract for safety, as well as depression, and so he was admitted to the neuropsychiatric unit for observation for these issues. Prior to seeing this commercial insurance underwriter, he was noted to have snuck in contraband and had some pills both in his shoes and in his rectum. When he was seen, he was more or less unresponsive to questions, basically saying ?I don?t know? and denying that this has a malingering element to it. Prior to discharge, the last thing I had said to him was ?are you sure you?re actually ready to be discharged, and that we are not going to see you back in a day or so?, and he assured us that would not happen and he did not even make it five or six hours. He reported that his significant other had given him his medication, but not his Klonopin, but denied that this had anything to do with the Klonopin. He agreed that we would be able to speak to her regarding where this medication is, because it is illegal for anyone other than the designated person that it is prescribed to, taking a controlled substance. Additionally, there were concerns that we discussed about this being just a place for him to stay. He told multiple different stories that they were splitting up, but then saying that they have a kid together, and he could live there, then changing his story that he can stay with his mom, so he was hard to arouse, but was telling different versions of different stories. In addition to that, we were contacted by the police surrounding wanting to have a conversation with him, knowing he was here, and saying they needed to interview him about something, so there may be another reason why he is avoiding being out of the hospital. I discussed that I would give him the next 24 hours, but the likelihood is that barring that we have a sound clinical reason to continue his hospitalization, that there would be a likely discharge tomorrow. Excerpt from his last hospitalization is included below, as there have been no substantive changes to his history. Per last [facility] eval 09/14/19: History of Present Illness Lon Curran is a 44 year old male Lon presented to the emergency room endorsing suicidal thoughts and not being well overall, feeling depressed, and somewhat vague, but unable to contract for safety. He was admitted to the neuropsychiatric unit for definitive treatment of those issues. Today he continues to endorse just not feeling well and feeling like he ?needed a break.?. He endorsed that he had been taking his medication, but he did not feel that it had been that effective. He endorsed a desire to have the Klonopin increased to three times a day from his current twice a day dosing. We were working to get verification of the exact doses and agreed to restart medications as we had verification. He endorsed that he was also taking Seroquel, Prozac, and other medication, but seemed to focus on the increase in the Klonopin. He was not a great historian but did review his last inpatient hospitalization with this commercial insurance underwriter and endorsed that there had not been substantive changes from that time. An excerpt of that note is included below. He endorsed past suicide attempts and feeling unsafe at this point. Date of Service: Jan 12, 2016 Chief Complaint: Suicidal and homicidal ideation HPI: Mr. Curran is a 40-year-old male who is no [facility] with previous diagnosis of depression and anxiety, who was admitted under a 96 hour hold for the expression of suicidal and homicidal ideation in the emergency department. Patient reports that he's been feeling increasingly frustrated and the transition between Medicaid programs which has resulted in not being able to get his medications. He is a patient over at the [facility] pain clinic, and also over at [facility], and he is prescribed mental health and pain medications. He states that he's been out of his medications for some weeks now because he is unable to afford the medicines without coverage. States that yesterday in his attempt to get his prescriptions, when he learned that there were not covered by his insurance, he became acutely frustrated and angry and expressed suicidal and homicidal ideation. As he presents today he denies that prior to this that he was experiencing any significant mood symptoms, but he has been fatigued with difficulty with sleep, associated with his chronic pain. He denies any psychotic symptoms, and denies any symptoms consistent with ramona, hypomania, PTSD. He frankly and emphatically denies any suicidal homicidal ideation today and is able to contract for safety in the community. Allergies: Coded Allergies: TRAMADOL (Verified Allergy, Intermediate, RASH, HIVES, 10/25/12) Active Meds: Current Hospital Medications: Medications (Trade) Dose Ordered Sig/Alix Route PRN Reason Start Time Stop Time Status Last Admin Dose Admin Lorazepam (Ativan Tab) 0.5 mg Q4H PRN PO FOR MILD ANXIETY 01/11/16 19:00 Lorazepam (Ativan Tab) 1 mg Q4H PRN PO FOR MODERATE ANXIETY 01/11/16 19:00 Lorazepam (Ativan Tab) 2 mg Q4H PRN PO FOR SEVERE ANXIETY 01/11/16 19:00 Lorazepam (Ativan Inj) 2 mg Q4H PRN IM For Severe Aggression 01/11/16 19:00 Haloperidol Lactate (Haldol Inj) 5 mg Q4H PRN IM Severe Aggression 01/11/16 19:00 Diphenhydramine HCl (Benadryl Inj) 50 mg ONCE PRN IV Severe Extrapyramidal Symptoms 01/11/16 19:00 Benztropine Mesylate (Cogentin Tab) 1 mg BID PRN PO Mild Extrapyramidal symptoms 01/11/16 19:00 Benztropine Mesylate (Cogentin Inj) 1 mg ONCE PRN IM Severe Extrapyramidal Symptom 01/11/16 19:00 Acetaminophen (Tylenol Tab) 650 mg Q4H PRN PO FOR MILD PAIN 01/11/16 19:00 01/11/16 21:29 Trazodone HCl (Trazodone) 50 mg BEDTIME PRN PO FOR SLEEP 01/11/16 19:00 11/15/16 21:28 Nicotine (Nicoderm Patch) 21 mg DAILY PRN TD FOR WITHDRAWAL 01/11/16 19:00 Nicotine Polacrilex (Nicotine Gum) 2 mg Q2H PRN PO Withdrawal 01/11/16 19:00 Haloperidol (Haldol Tab) 5 mg Q4H PRN PO For agitation 01/11/16 19:00 Lorazepam (Ativan Tab) 2 mg Q4H PRN PO FOR AGITATION 01/11/16 19:00 Fluoxetine HCl (Prozac) 50 mg DAILY PO 01/13/16 10:00 UNV Mirtazapine (Remeron) 15 mg BEDTIME PO 01/12/16 22:00 UNV Past Medical History Past Medical History: PAST PSYCHIATRIC HISTORY: -He states this is his first psychiatric hospitalization in almost 5 years -Receives outpatient mental health care at [facility] PAST FAMILY PSYCHIATRIC HISTORY: -Noncontributory SOCIAL HISTORY: -Currently lives with his son PAST MEDICAL HISTORY: -Chronic back pain Hospital Course Hospital Course Lon presented to the emergency department reporting that he was suicidal and had a relapse. He was admitted to the neuropsychiatric unit for definitive treatment of those issues. On the unit he quickly acclimated to the individual, group and milieu therapies provided, however he had a Covid exposure which started some of his behaviors and anxiety. He endorsed that he had been doing better and even followed up with his appointment just the day prior. He was put on the 1 side of the unit all the other patients work The Other Side While He Was in the Hospital. He Had No Symptoms of COVID-19. He Did Appear Better and No Medication Changes Were Made. He was able to contract for safety and was discharged after a modest improvement. During the hospitalization he had routine laboratory studies which were within normal limits except for few outliers. Additionally he had a general medical evaluation which was also within normal limits and revealed no new acute processes. Discharge summary: At the time of discharge he was absent lethality or psychosis. His mood and anxiety were well managed. He endorsed a plan to avoid all drugs of abuse and follow-up with the aftercare recommendations of the treatment team. He was evaluated and deemed to be absent current lethality and was a voluntary patient who requested to leave and so he was discharged. Involuntary Hold Information 96 Hour Hold: 96 Hour Involuntary Admission: No Mental Status Exam MSE Comments: This is a underweight with a well-developed white male with limited dress, grooming and eye contact. No abnormal movements except for resolving psychomotor retardation. Cooperative with exam in no acute distress. Speech was more normal rate and volume. Mood described as better, affect congruent. Thought process organized. Thought content: Patient denied suicidal or homicidal ideations, there were no delusions reported or noted, he denied any auditory or visual hallucinations. Attention and concentration were intact and memory appeared reliable but none were formally tested. He is alert and oriented x3. Insight and judgment are limited, but improving impulse control is limited. Discharge Data Data Completed and Pending: Completed Studies During Hospitalization Category Date Time Status XR chest 1V [id number] Stat Exams 01/17/20 00:06 Completed Vitals: Last Vital Signs Temp 98.5 F 01/18/20 06:00 Pulse 91 01/18/20 06:00 Resp 15 01/18/20 06:00 BP 116/70 01/18/20 06:00 Pulse Ox 96 01/18/20 06:00 Discharge Plan Discharge Patient Disposition: Home Condition: Stable Prescriptions: Continued buspirone 15 mg tablet 15 mg PO TID Qty: 90 RF: 1 fluoxetine 40 mg capsule 80 mg PO QAM Qty: 60 RF: 1 lithium carbonate 300 mg capsule 300 mg PO BEDTIME 30 Days Qty: 30 RF: 1 quetiapine [Seroquel] 200 mg tablet 200 mg PO .HS 30 Days Qty: 30 RF: 1 Vitamin B-1 (mononitrate) 100 mg Tablet 100 mg PO DAILY 30 Days Qty: 30 RF: 1 folic acid 1 mg Tablet 1 mg PO DAILY Qty: 30 RF: 0 Discharge Orders: Discharge Order (Routine); Ordered 01/18/20 Ordered By: Misael Collins Discharge Diet: Regular Discharge Activity: Resume usual activity Patient Instructions: Anxiety (DC) Discharge Attestations NPU Time Spent in Discharge Care*: less than 30 min Specific Discharge Activities: Specific discharge activities: educating patient, discussing with case planner/social workers/dc planners, documenting/other paperwork and evaluating patient/reviewing data Status at Discharge: Cognitive status at discharge: cognitively intact , Behavioral status at discharge: cooperative , Coding Level of Care Code Acute Revenue Officer for [facility] Fwd Diagnoses Cannabis dependence, uncomplicated F12.20 Alcohol dependence, uncomplicated F10.20 Anxiety F41.9 Outbursts of anger R45.4 Panic disorder [episodic paroxysmal anxiety] F41.0 Social phobia, unspecified F40.10
[2020-01-18 10:30] VITALS: BP 116/70; PULSE 91; RESP 15; TEMP 36.9; O2SAT 96
[2020-01-18 10:37] VITALS: BP 116/70; PULSE 91; RESP 15; TEMP 36.9; O2SAT 96
--- NOTE | 2020-01-20 14:31 | PC.RESP ---
SMOKING CESSATION INFORMATION SENT TO PATIENT.
== END 2020-01-18 10:44 | disposition left against medical advice (07) | DRG 894 ==
LOC: ER 22:40 → NP 01-17 00:17
PROVIDERS: Admitting Provider Psychiatry & Neurology Psychiatry; Emergency Provider Emergency Medicine; PCP Family Medicine; Visit Provider Psychiatry & Neurology Psychiatry
DX: F10.229 Alcohol dependence with intoxication, unspecified (principal); R45.851 Suicidal ideations; R45.850 Homicidal ideations; F41.9 Anxiety disorder, unspecified; F12.20 Cannabis dependence, uncomplicated; G89.29 Other chronic pain; M54.5 Low back pain; Z98.1 Arthrodesis status; F17.210 Nicotine dependence, cigarettes, uncomplicated; R45.4 Irritability and anger; F41.0 Panic disorder [episodic paroxysmal anxiety]; F40.10 Social phobia, unspecified; Z53.29 Procedure and treatment not carried out because of patient's decision for other reasons
CPT/HCPCS: 12345; 36415; 71045; 80053; 80178; 80306; 80307; 81001; 85025; 87426; 96372; 99284; J3486

== ENCOUNTER → 2020-02-24 07:40 | Outpatient (BNVA) | payer MEDICAID, SELFPAY | PROVIDERS: PCP Family Medicine; Visit Provider Nurse Practitioner | DX: F41.0 Panic disorder [episodic paroxysmal anxiety] (principal); F10.20 Alcohol dependence, uncomplicated; F40.10 Social phobia, unspecified | CPT/HCPCS: 99213 ==

== ENCOUNTER → 2020-06-14 09:38 | Outpatient (BNVA) | payer MEDICAID, SELFPAY | PROVIDERS: PCP Family Medicine; Visit Provider Nurse Practitioner | DX: F41.0 Panic disorder [episodic paroxysmal anxiety] (principal); F40.10 Social phobia, unspecified; F10.20 Alcohol dependence, uncomplicated; F12.20 Cannabis dependence, uncomplicated; Z79.899 Other long term (current) drug therapy | CPT/HCPCS: 80061; 83036; 99214 ==

== ENCOUNTER → 2020-07-20 14:29 | Outpatient (BNVA) | payer MEDICAID, SELFPAY | PROVIDERS: PCP Family Medicine; Visit Provider Orthopaedic Surgery | DX: M43.12 Spondylolisthesis, cervical region (principal) | CPT/HCPCS: 72050 ==

== ENCOUNTER → 2020-07-29 13:34 | Outpatient (BNVA) | payer MEDICAID, SELFPAY | PROVIDERS: PCP Family Medicine; Visit Provider Orthopaedic Surgery | DX: Z01.812 Encounter for preprocedural laboratory examination (principal); Z20.822 Contact with and (suspected) exposure to COVID-19 | CPT/HCPCS: 87635 ==

== ENCOUNTER 2020-08-02 05:44 | Day surgery (SDC) | payer MEDICAID, SELFPAY ==
[2020-07-30 12:46] VITALS: BMI 20.2
--- NOTE | 2020-07-30 16:00 | ANES.PREANE2 ---
Pre-Anesthetic Assessment Pre-Anesthetic Assessment: Height/Weight: Height 1.75 m Weight 62.142 kg Proposed Procedure: Operation Date: 08/02/20 07:00 Proposed Procedures p C5/6 Anterior Cervical Discectomy & Fusion ACDF 69548 [id number] M43.12(Not Applicable) - Karel Rg, DO Was Beta Angella taken within 24 hours: N/A Was Clonidine taken within 24 hours: N/A Social: Social History: Alcohol and Tobacco Comment: Polysubstance abuse Exam: Pre-Anes Outpt Exam: alert, oriented x 3 and regular rate & rhythm Airway: Submandibular: WNL Cervical ROM: WNL MP: 2 Dentition: Chipped Additional comments: Poor dentition, missing several Pulmonary: Pulmonary: COPD Musc/skel: Musc/skel: Lower Back Pain and OA/DJD Neuropsych: Neuropsych: Anxiety and Depression Anesthetic Plan: ASA status: 3 Anesthesia: General Risk of > 500 ml blood loss (7ml/kg in children): No PFSH Anesthesia PFSH: Medical History Alcohol dependence, uncomplicated Benzodiazepine abuse Cannabis dependence, uncomplicated Chronic low back pain Disc displacement, cervical H/O degenerative disc disease Hx of fracture of ankle (~05/2018) LEFT ANKLE DR CAGLE IN [facility] 05/2018 Long-term use of high-risk medication Malingering On combination antipsychotic drug therapy Panic disorder [episodic paroxysmal anxiety] Smoking Social phobia, unspecified Spondylolisthesis, cervical region Spondylosis without myelopathy or radiculopathy Substance abuse Surgical History Hx of cervical spine surgery (~08/03/16) 08/03/16 C6-7 ACDFF Family History Father , UNKNOWN CAUSE No problems noted. Denies family history of Diabetes Anesthesia complication Bleeding disorder Cancer Social History Smoking and tobacco status: current every day smoker cigarettes Packs smoked per day: 0.5 Years cigarettes smoked: 20 [ Other cigarette details: 6 CIGS DAY ] Alcohol intake: never Lives independently: Yes Marital status: Single Current occupational status: disabled History of recent travel: No Data Anesthesia Cardiac Studies: No Data to Display
[2020-08-02] VITALS (13 sets, daily range): BP systolic 89–129; BP diastolic 48–88; PULSE 52–64; RESP 12–18; TEMP 36.2–36.9; O2SAT 95–99
--- NOTE | 2020-08-02 | SCC_ITS ---
Procedure Done: 1. Anterior diskectomy C5/6 2. Insertion of cage C5/6 3. Instrumentation withscrews into C5 and C6 4. Use of allograft 21.6 seconds of fluoroscopic guidance, for a cumulative dose of 0.92 mGy, was provided to Dr. Rg by the radiology department. C-arm images of the cervical spine were saved for the patient's permanent record. [facility]ITALMaliha
--- NOTE | 2020-08-02 | XR_ITS ---
WS: [id number] C-ARM RADIOGRAPHS CERVICAL SPINE; 3 IMAGES HISTORY: acdf COMPARISON: 07/20/2020 Intraoperative imaging during revision of an anterior cervical fusion. New fusion hardware is noted a t C5-6. XR/XR cervical spine 3V* [id number] IMPRESSION: Intraoperative imaging during additional cervical fusion at C5-6.
[2020-08-02] MEDS: midazolam 1 mg/mL INJ 2 mL 2 MG IVP (06:36)
--- NOTE | 2020-08-02 06:38 | W.PM.OPSUD ---
Surgery/Procedure H&P Update DATE OF PROCEDURE: August 02, 2020 DATE H&P PERFORMED: 07/20/20 H&P UPDATE INFORMATION: I have reviewed H&P completed within last 30 days, I have examined patient prior to procedure and No changes to prior documentation PLANNED PROCEDURE: Operation Date: 08/02/20 07:00 Proposed Procedures p C5/6 Anterior Cervical Discectomy & Fusion ACDF 85479 [id number] M43.12(Not Applicable) - Karel Rg DO
[2020-08-02] MEDS: sodium chloride 0.9% 1,000 ML 30 ML IV (06:42)
[2020-08-02] MEDS: thrombin 5,000 unit SDV 5000 UNIT XX (07:49)
--- NOTE | 2020-08-02 08:31 | P.OP_ITS ---
Operative Report Date of procedure: August 02, 2020 Pre-op Diagnosis: Cervical stenosis Post-op diagnosis: same Procedure Done: 1. Anterior diskectomy C5/6 2. Insertion of cage C5/6 3. Instrumentation withscrews into C5 and C6 4. Use of allograft Surgeon: Karel Rg Anesthesia: General Estimated blood loss (mL): 5 Condition: stable Disposition: PACU Procedure: The patient was taken to the operating room, where he underwent general endotracheal anesthesia without complications. He was then positioned supine on the operating table, and all areas of impingement were well padded. The arms were carefully padded and tucked at his sides. A roll was placed between the shoulder blades.. An x-ray was done to determine the appropriate level for the skin incision. The entire neck was then sterilely prepped and draped in the usual fashion. Neuromonitoring was attached prior to prepping. A transverse skin incision was made and carried down to the platysma muscle. This was then split in line with its fibers. Blunt dissection was carried down medial to the carotid sheath and lateral to the trachea and esophagus until the anterior cervical spine was visualized. A needle was placed into a disc and an x-ray was done to determine its location. The longus colli muscles were then elevated bilaterally with the electrocautery unit. Self-retaining retractors were placed deep to the longus colli muscle. Attention was brought to the C5/6 level that was confirmed on x-ray and it is above the previous plate. The microscope was then brought in. A radical anterior discectomies were performed at C5/6. This included complete removal of the anterior annulus, nucleus, and posterior annulus. The posterior longitudinal ligament was removed as were the posterior osteophytes. Foraminotomies were then accomplished bilaterally. This was done using a high speed yara, kerrison rongeurs and curretes Once all of this was accomplished, the curved currette was used to check for any residual compression. The central canal was wide open as were the foramen. A high-speed bur was used to remove the cartilaginous endplates above and below the interspace. Bleeding cancellous bone was exposed. The disc space were measured and appropriate size cage were placed sterilely onto the field. Allograft graft was packed into the cages. The cage was then placed and there was good juxtaposition against the bleeding decorticated surfaces and good distraction of each interspace. An awl was then used and placed into the cage up into the C5 endplate. And then a 10 mm screws placed through the cage into the vertebrae of C5. Next attention was brought to the C6 vertebrae and a awl w as used to start a area relief pilot hole into the C6 vertebral endplate. And then a 12 mm screw was placed. There was excellent purchase. A final x-ray was done confirming good position of the hardware and Cages. The locking screws were then applied, also with excellent purchase. copious irrigation, there was good hemostasis and no dural leaks. The carotid pulse was strong. The wounds were then closed in layers using 2-0 Vicryl suture for the platysma muscle, 2-0 Vicryl suture for the subcutaneous tissue, and 4-0 monocryl suture in a subcuticular skin closure. Glue was placed followed by application of a sterile dressing. The drain was hooked to bulb suction. A soft collar was applied. The patient was then carefully returned to the supine position on his hospital bed where he was reversed and extubated and taken to the recovery room having tolerated the procedure well.
--- NOTE | 2020-08-02 08:48 | P.PCN_ITS ---
PACU note PACU note: VSS, Good respiratory effort, report to CONDUCTOR SYMPHONIC ORCHESTRA
--- NOTE | 2020-08-02 08:48 | PM.PACU ---
PACU note PACU note: VSS, Good respiratory effort, report to MANAGER INTERMEDIATE
--- NOTE | 2020-08-02 14:24 | ANE.PACU2 ---
Inpatient post-anesthesia follow up: Airway intact: Yes Vital signs: Temperature 97.6 F Pulse Rate 60 Respiratory Rate 17 Blood Pressure 129/88 Pulse Oximetry 95 Oxygen Delivery Me thod Room Air Oxygen Flow Rate 8 Fraction of Inspir ed Oxygen Hydration adequate: Yes Nausea and vomiting: No Pain level: 2 Mental status: Baseline
== END 2020-08-02 10:00 | disposition home or self-care (01) ==
PROVIDERS: PCP Family Medicine; Visit Provider Orthopaedic Surgery
PROC: 0RB30ZZ Excision of Cervical Vertebral Disc, Open Approach (ICD-10-PCS; CPT 22551; principal; 2020-08-02 07:00)
DX: M48.02 Spinal stenosis, cervical region (principal); J44.9 Chronic obstructive pulmonary disease, unspecified; F41.9 Anxiety disorder, unspecified; F32.9 Major depressive disorder, single episode, unspecified; F17.210 Nicotine dependence, cigarettes, uncomplicated
CPT/HCPCS: 20930; 22551; 22845; 22853; 72040; 76000; 96365; C1713; C9359; J0330; J0690; J1100; J2250; J2405; J2704; J2710; J3010; J3490; J7030

== ENCOUNTER → 2020-09-28 12:51 | Outpatient (BNVA) | payer MEDICAID, SELFPAY | PROVIDERS: PCP Family Medicine; Visit Provider Orthopaedic Surgery | DX: M50.90 Cervical disc disorder, unspecified, unspecified cervical region (principal); M96.1 Postlaminectomy syndrome, not elsewhere classified; Z48.89 Encounter for other specified surgical aftercare | CPT/HCPCS: 72040 ==

== ENCOUNTER → 2020-10-19 07:38 | Outpatient (BNVA) | payer MEDICAID, SELFPAY | PROVIDERS: PCP Family Medicine; Visit Provider Nurse Practitioner | DX: F41.0 Panic disorder [episodic paroxysmal anxiety] (principal); F40.10 Social phobia, unspecified; F12.20 Cannabis dependence, uncomplicated; F10.20 Alcohol dependence, uncomplicated; Z79.899 Other long term (current) drug therapy | CPT/HCPCS: 99214 ==

== ENCOUNTER → 2020-11-30 15:43 | Outpatient (BNVA) | payer MEDICAID, SELFPAY | PROVIDERS: PCP Family Medicine; Visit Provider Physician Assistant | DX: Z48.89 Encounter for other specified surgical aftercare (principal) | CPT/HCPCS: 72040 ==

== ENCOUNTER → 2021-01-25 09:30 | Outpatient (BNVA) | payer MEDICAID, SELFPAY | PROVIDERS: PCP Family Medicine; Visit Provider Nurse Practitioner | DX: F41.0 Panic disorder [episodic paroxysmal anxiety] (principal); F40.10 Social phobia, unspecified; F12.20 Cannabis dependence, uncomplicated; F10.20 Alcohol dependence, uncomplicated; Z79.899 Other long term (current) drug therapy | CPT/HCPCS: 99214 ==

== ENCOUNTER → 2021-05-26 11:02 | Outpatient (BNVA) | payer MEDICAID, SELFPAY | PROVIDERS: PCP Family Medicine; Visit Provider Nurse Practitioner | DX: F40.10 Social phobia, unspecified (principal); F41.0 Panic disorder [episodic paroxysmal anxiety]; Z79.899 Other long term (current) drug therapy; F12.20 Cannabis dependence, uncomplicated; F10.20 Alcohol dependence, uncomplicated | CPT/HCPCS: 99214 ==

== ENCOUNTER → 2021-08-01 10:04 | Outpatient (BNVA) | payer MEDICAID, SELFPAY | PROVIDERS: PCP Family Medicine; Visit Provider Nurse Practitioner | DX: Z79.899 Other long term (current) drug therapy (principal) | CPT/HCPCS: 80178 ==

== ENCOUNTER → 2021-08-02 13:31 | Outpatient (BNVA) | payer MEDICAID, SELFPAY | PROVIDERS: PCP Family Medicine; Visit Provider Physician Assistant | DX: M47.812 Spondylosis without myelopathy or radiculopathy, cervical region (principal); Z47.89 Encounter for other orthopedic aftercare; Z98.1 Arthrodesis status | CPT/HCPCS: 72040; 99213 ==

== ENCOUNTER → 2022-03-15 09:13 | Outpatient (BNVA) | payer MEDICAID, SELFPAY | PROVIDERS: PCP Family Medicine; Visit Provider Nurse Practitioner | DX: Z79.899 Other long term (current) drug therapy (principal) | CPT/HCPCS: 80061; 83036 ==

== ENCOUNTER → 2022-05-16 13:28 | Outpatient (BNVA) | payer MEDICAID, SELFPAY | PROVIDERS: PCP Family Medicine; Visit Provider Orthopaedic Surgery | DX: M51.36 Other intervertebral disc degeneration, lumbar region (principal); M51.46 Schmorl's nodes, lumbar region; M25.78 Osteophyte, vertebrae | CPT/HCPCS: 72110; 99214 ==

== ENCOUNTER 2022-06-06 06:52 | Outpatient (CLI) | payer MEDICAID, SELFPAY ==
--- NOTE | 2022-06-06 07:15 | MR_ITS ---
WS: [id number] MRI LUMBAR SPINE NONCONTRAST HISTORY: back pain, pain down LEFT leg. COMPARISON: 09/14/2017 TECHNIQUE: Sagittal and axial multisequence imaging is submitted. Prior posterior cervical fusion Normal lumbar alignment with no compression fractures or marrow edema. Disc spaces and vertebral body heights are well-preserved. Conus terminates normally at L1-2 disc level. L1-L2: Normal. L2-L3: Mild disc bulging and facet arthritis. No stenosis. L3-L4: Mild disc bulging, slightly asymmetric to the LEFT. Mild ligamentum flavum and facet arthritis . There is very mild disc contact on the traversing LEFT L4 nerve root. Mild LEFT foraminal narrowing . Very similar findings as compared to the prior study. There is also small amount of fluid in the RI GHT facet joint. L4-L5: Very minimal disc bulging and osteophytic ridging. Mild ligamentum flavum and facet arthritis. Small amount of fluid in the facet joints. L5-S1: Mild disc bulging and facet joint arthritis. No significant stenosis. Paravertebral soft tissues are normal. MR/MR lumbar spine wo con* [id number] IMPRESSION: 1. Mild asymmetric disc bulging L3-4 with slight contact on the traversing LEF T L4 nerve root. There is also mild LEFT foraminal narrowing. 2. Mild facet joint arthritis from L2-3 to L5-S1. 3. No high-grade stenosis.
== END 2022-06-06 06:53 | disposition home or self-care (01) ==
LOC: RAD 06:55
PROVIDERS: PCP Family Medicine; Visit Provider Orthopaedic Surgery
DX: G89.29 Other chronic pain (principal); M51.36 Other intervertebral disc degeneration, lumbar region; M47.897 Other spondylosis, lumbosacral region
CPT/HCPCS: 72148

== ENCOUNTER → 2022-06-09 14:29 | Outpatient (BNVA) | payer MEDICAID, SELFPAY | PROVIDERS: PCP Family Medicine; Visit Provider Orthopaedic Surgery | DX: M48.062 Spinal stenosis, lumbar region with neurogenic claudication (principal) | CPT/HCPCS: 99214 ==

== ENCOUNTER → 2022-06-12 10:51 | Outpatient (BNVA) | payer MEDICAID, SELFPAY | PROVIDERS: PCP Family Medicine; Visit Provider Clinical Nurse Specialist Adult Health | DX: F17.200 Nicotine dependence, unspecified, uncomplicated (principal) | CPT/HCPCS: 80048; 85025 ==

== ENCOUNTER 2022-06-19 07:26 | Day surgery (SDC) | payer MEDICAID, SELFPAY ==
[2022-06-14 09:39] VITALS: BMI 19.9
--- NOTE | 2022-06-14 15:24 | P.ANESASSM_ITS ---
Pre-Anesthetic Assessment Height/Weight: Height 1.75 m Weight 61.235 kg Operation Date: 06/19/22 15:15 Proposed Procedures p Lumbar Spine Decompression: LT L4/5 53189, M48.062(Left) - Karel Rg DO Familial anesthetic complications: none Was Beta Angella taken within 24 hours: N/A Was Clonidine taken within 24 hours: N/A Social Tobacco and No alcohol Exam alert, oriented x 3 and regular rate & rhythm Airway Submandibular: within normal limits Cervical ROM: within normal limits Mallampati: Class II Dentition: chipped Comments: Comments: Missing several Pulmonary Chronic Obstructive Pulmonary Disease [facility] Lower Back Pain and Osteoarthritis/DJD Neuropsych Anxiety, Bipolar and Depression Anesthetic Plan ASA status: 3 Anesthesia: General Medications/Allergies Home Medications Medication Instructions Recorded Confirmed Last Taken Type ibuprofen 125 mg-acetaminophen 250 1 tab PO Q8H PRN Pain 07/30/20 06/14/22 06/14/22 History mg tablet (Advil Dual Action) buspirone 15 mg tablet 15 mg PO TID #90 tabs 06/07/22 06/14/22 06/14/22 Rx fluoxetine 40 mg capsule 80 mg PO QAM #60 caps 06/07/22 06/14/22 06/14/22 Rx lithium carbonate 300 mg capsule 300 mg PO BEDTIME 30 days #30 caps 06/07/22 06/14/22 06/14/22 Rx quetiapine 200 mg tablet (Seroquel) 200 mg PO .HS 30 days #30 tabs 06/07/22 06/14/22 06/14/22 Rx Allergies Allergy/AdvReac Type Severity Reaction Status Date / Time tramadol Allergy HIVES Verified 06/14/22 09:38 [facility] Anesthesia Medical History Alcohol dependence, uncomplicated Alcohol use disorder in remission Benzodiazepine abuse Cannabis dependence, uncomplicated Cannabis use disorder in remission Chronic low back pain Disc displacement, cervical H/O degenerative disc disease Hx of fracture of ankle (~05/2018) LEFT ANKLE DR CAGLE IN [facility]G 05/2018 [place] use Long-term use of high-risk medication Malingering On combination antipsychotic drug therapy On combination antipsychotic drug therapy Smoking Social phobia, unspecified Social phobia, unspecified Spondylolisthesis, cervical region Spondylosis without myelopathy or radiculopathy Substance abuse Surgical History Hx of cervical spine surgery (~08/03/16) 08/03/16 C6-7 ACDFF 07/2020 1. Anterior diskectomy C5/6 2. Insertion of cage C5/6 3. Instrumentation withscrews into C5 and C6 4. Use of allograft Family History Father , UNKNOWN CAUSE No problems noted. Denies family history of Diabetes Anesthesia complication Bleeding disorder Cancer Social History Smoking and tobacco status: current every day smoker cigarettes Packs smoked per day: 0.5 Years cigarettes smoked: 20 [ Other cigarette details: 6 CIGS DAY ] Alcohol intake: never Lives independently: Yes Marital status: Single Current occupational status: disabled Data Anesthesia Cardiac Studies: No Data to Display
[2022-06-19] VITALS (8 sets, daily range): BP systolic 98–128; BP diastolic 46–79; PULSE 49–80; RESP 15–25; TEMP 36.2–37; O2SAT 93–100
[2022-06-19] MEDS: sodium chloride 0.9% 1,000 ML 30 ML IV (07:57)
--- NOTE | 2022-06-19 09:03 | W.PM.OPSUD ---
Surgery/Procedure H&P Update DATE OF PROCEDURE: June 19, 2022 DATE H&P PERFORMED: 06/12/22 CHANGES TO PREVIOUS DOCUMENTATION: will ad L3/4 as well PREOP DIAGNOSIS: Lumbar stenosis with neurogenic claudication PLANNED PROCEDURE: Operation Date: 06/19/22 09:25 Proposed Procedures p Lumbar Spine Decompression: LT L4/5 72099, M48.062(Left) - Karel Rg DO
[2022-06-19] MEDS: ceFAZolin 2,000 MG in sodium chloride 0.9% (plus) 50 ML 100 MG IV (09:21)
[2022-06-19] MEDS: lidocaine-epi 1% 20 mL INJ INJECTION (09:43)
--- NOTE | 2022-06-19 10:33 | P.ANESUD_ITS ---
Pre-Anesthetic Update Pre-Anesthetic Assessment: Date of Surgery/Procedure: 06/19/22 Preop Mary Ann gnosis: Lumbar stenosis with neurogenic claudication Proposed Procedure: Operation Date: 06/19/22 09:25 Proposed Procedures p Lumbar Spine Decompression: LT L4/5 08207, M48.062(Left) - Karel Rg, DO Any changes to Pre-Anesthetic Assessment?: No Last Intake: Intake Last Liquid Date 06/18/22 Last Liquid Time 19:30 Last Solid Date 06/18/22 Last Solid Time 19:30 Vitals: Temperature 97.2 F L 06/19/22 10:29 Temperature Source Temporal Artery S can 06/19/22 10:29 Pulse Rate 49 L 06/19/22 10:29 Respiratory Rate 20 H 06/19/22 10:29 Blood Pressure 98/46 06/19/22 10:29 Blood Pressure Tammy n 63 06/19/22 10:29 Pulse Oximetry 99 06/19/22 10:29 Oxygen Delivery Me thod Simple Mask 06/19/22 10:29 Oxygen Flow Rate 6 06/19/22 10:29 Exam: Pre-Anes Outpt Exam: alert, oriented x 3 and regular rate & rhythm Cardiac Studies: No Data to Display
--- NOTE | 2022-06-19 10:47 | P.OP_ITS ---
Operative Report Date of procedure: June 19, 2022 Pre-op diagnosis: Preop Diagnosis Lumbar stenosis with neurogenic claudication Post-op diagnosis: same Post-op findings: 1. L3/4 laminectomy with partial facetectomy 2. L4/5 laminectomy with partial facetectomy Surgeon: Karel Rg Hog Tender: Kenny Vincent Hog Tender: The assembler surgical garment, Kenny Vincent, PAC was needed for his expertise under the microscope. He was important and necessary throughout the procedure to complete in a safe and timely manner. He assisted with patient positioning prepping and draping tissue retraction suctioning of the operative field protection of the dural sac and tissue closure Estimated blood loss (mL): 5 Procedure: 1. L3/4 laminectomy with partial facetectomy 2. L4/5 laminectomy with partial facetectomy Patient is brought to the operative suite. After undergoing anesthesia they are placed in the prone position. All areas of impingement are well padded. Patient is then prepped and draped in the normal sterile fashion. A skin incision is made over the L3/4 level. This is confirmed under c-arm guidance. A series of dilators are passed and the tubular retractor is docked on the L3 lamina. A bovie is used to clear the soft tissue off the lamina and the L 3/4 facet joint. A high speed yara is then used to perform the laminectomy and take down the medial aspect of the L 3/4 facet joint. A kerrison rongeure was then used to take down the remaining lamina and smooth the edge of the laminectomy up to the point where the ligamentum flavum attaches. Attention was then brought to the medial aspect of the facet joint. The remaining medial aspect of the superior and inferior aspect of the facet joint were taken down with the kerrison from the pedicle of L3 to L 4. The facet joint had significant hypertrophy. Attention was then brought to the Ligamentum Flavum. The ligament was taken down from the lamina of L3 to L4 and out medially to the remaining facet joint. The ligament was thick. The dura was then exposed. The dura was in good repair. The L3 nerve was then traced with a curette out the L3/4 foramen and found to be adequately decompressed. The L4 nerve was traced with a curette around the L4 pedicle. The lateral recess was opened with a kerrison helping to further decompress the L4 nerve. Wound is then irrigated copiously with saline and surgiflo is used to stop any bleeding. The tubular retractor is removed and the A skin incision is made over the L4/5 level. This is confirmed under c-arm guidance. A series of dilators are passed and the tubular retractor is docked on the L4 lamina. A bovie is used to clear the soft tissue off the lamina and the L 4/5 facet joint. A high speed yara is then used to perform the laminectomy and take down the medial aspect of the L 4/5 facet joint. A kerrison rongeure was then used to take down the remaining lamina and smooth the edge of the laminectomy up to the point where the ligamentum flavum attaches. Attention was then brought to the medial aspect of the facet joint. The remaining medial aspect of the superior and inferior aspect of the facet joint were taken down with the kerrison from the pedicle of L4 to L 5. The facet joint had significant hypertrophy. Attention was then brought to the Ligamentum Flavum. The ligament was taken down from the lamina of L4 to L5 and out medially to the remaining facet joint. The ligament was thick. The dura was then exposed. The dura was in good repair. The L4 nerve was then traced with a curette out the L4/5 foramen and found to be adequately decompressed. The L5 nerve was traced with a curette around the L5 pedicle. The lateral recess was opened with a kerrison helping to further decompress the L5 nerve. Wound is then irrigated copiously with saline and surgiflo is used to stop any bleeding. The tubular retractor is removed and the wound is closed with vicryl and monocryl suture. Glue is then used to protect the wound. A sterile dressing is then placed. Patient was then placed in the supine position and transferred to the PACU in stable condition.
--- NOTE | 2022-06-19 11:00 | XR_ITS ---
WS: [email or web address] Exam: XR lumbar spine 2-3V* [id number] Date/Time of Exam: 06/19/2022 11:00 AM Reason For Exam: OR PICS 2 anterior posterior C-arm intraoperative images of the lower lumbar spine are submitted. These image s were obtained for intraoperative purposes.
[2022-06-19] MEDS: HYDROcodone-acetaminophen 5-325 mg Tablet 1 TAB PO (11:36)
--- NOTE | 2022-06-19 15:23 | ANE.PACU2 ---
Inpatient post-anesthesia follow up: Airway intact: Yes Vital signs: Temperature 98.6 F Pulse Rate 64 Respiratory Rate 18 Blood Pressure 122/79 Pulse Oximetry 96 Oxygen Delivery Me thod Room Air Oxygen Flow Rate 6 Fraction of Inspir ed Oxygen Hydration adequate: Yes Nausea and vomiting: No Pain level: 3 Mental status: Baseline
== END 2022-06-19 11:41 | disposition home or self-care (01) ==
PROVIDERS: PCP Family Medicine; Visit Provider Orthopaedic Surgery
PROC: (CPT 63005; principal; 2022-06-19 09:15)
DX: M48.062 Spinal stenosis, lumbar region with neurogenic claudication (principal); J44.9 Chronic obstructive pulmonary disease, unspecified; F17.210 Nicotine dependence, cigarettes, uncomplicated; Z79.899 Other long term (current) drug therapy
CPT/HCPCS: 63047; 72100; 76000; J0690; J1100; J1170; J1885; J2250; J2405; J2704; J2710; J3010; J3490; J7030

== ENCOUNTER → 2022-07-04 12:34 | Outpatient (BNVA) | payer MEDICAID, SELFPAY | PROVIDERS: PCP Family Medicine; Visit Provider Physician Assistant | DX: Z98.890 Other specified postprocedural states (principal) | CPT/HCPCS: 99024 ==

== ENCOUNTER → 2022-08-01 09:11 | Outpatient (BNVA) | payer MEDICAID, SELFPAY | PROVIDERS: PCP Family Medicine; Visit Provider Physician Assistant | DX: Z98.890 Other specified postprocedural states (principal) | CPT/HCPCS: 99024 ==

== ENCOUNTER → 2022-09-04 10:04 | Outpatient (BNVA) | payer MEDICAID, SELFPAY | PROVIDERS: PCP Family Medicine; Visit Provider Nurse Practitioner | DX: Z79.899 Other long term (current) drug therapy (principal) | CPT/HCPCS: 80178; 84443 ==

== ENCOUNTER → 2022-09-12 10:00 | Outpatient (BNVA) | payer MEDICAID, SELFPAY | PROVIDERS: PCP Family Medicine; Visit Provider Orthopaedic Surgery | DX: Z98.890 Other specified postprocedural states (principal) | CPT/HCPCS: 99024 ==

== ENCOUNTER 2022-10-06 08:26 | Outpatient (CLI) | payer MEDICAID, SELFPAY ==
--- NOTE | 2022-10-06 08:45 | MR_ITS ---
WS: [id number] MRI THORACIC SPINE noncontrast. HISTORY: back pain COMPARISON: None available. TECHNIQUE: Multiplanar sequences are performed in sagittal and axial planes. Prior anterior cervical fusion hardware from C5-C7. Thoracic vertebral bodies demonstrate mild increa se in the upper kyphosis. Disc spaces are mildly narrowed throughout. Normal signal within the thorac ic cord. No cord atrophy or enlargement. Conus tapers normally at L1-2. T1-2: Normal. T2-3: Normal. T3-4: Normal. T4-5: Normal. T5-6: Mild bilateral facet arthritis. T6-7: Normal. T7-8: Normal. T8-9: Normal. T9-10: Mild bilateral facet arthritis. No stenosis. T10-11: Mild bilateral facet arthritis. Mild left foraminal narrowing. T11-12: Normal. Paravertebral soft tissues are negative. IMPRESSION: 1. No significant thoracic spine stenosis or disc protrusions. 2. Mild facet arthritis as above. Very slight left foraminal narrowing at T10-11. 3. No thoracic cord syrinx.
--- NOTE | 2022-10-06 09:30 | MR_ITS ---
WS: [id number] MRI LUMBAR SPINE NONCONTRAST HISTORY: post op lumbar laminectomy, left leg pain. COMPARISON: 06/06/2022 TECHNIQUE: Sagittal and axial multisequence imaging is submitted. Less than 2 mm retrolisthesis of L3. No fractures. Very minimal disc desiccation. Conus terminates normally at L1-2 disc level. L1-L2: Normal. L2-L3: Mild annular disc bulging. Mild facet and ligamentum flavum arthritis. L3-L4: Diffuse annular disc bulging with moderate ligamentum flavum and facet arthritis. Disc asymmet rically extends into the left foramen., Similar to the prior study. There is contact on the left L3 e xiting nerve root. Less contact on the left L4 traversing nerve root as compared to the prior study. Mild left foraminal stenosis. Left hemilaminectomy defect. L4 -L5: Mild annular disc bulging. Left hemilaminectomy defect. Mild ligamentum flavum and facet arth ritis. Mild left foraminal stenosis. The disc very slightly contacts the traversing right L5 nerve ro ot. L5-S1: Mild annular disc bulging and facet arthritis. Very tiny central disc protrusion. Very slight disc or osteophyte contact on the right L5 exiting nerve root. Paravertebral soft tissues are negative. IMPRESSION: 1. Status post prior left hemilaminectomy defects at L3-4 and L4-5 since the prior study. 2. Very minimal disc contact on the left L3 exiting nerve root. Less contact on the left L4 traversin g nerve root since the prior study. 3. Mild left foraminal stenosis at L4-5. 4. Very minimal disc contacting the traversing right L5 nerve root. 5. Very minimal disc or osteophyte contact on the right L5 exiting nerve root.
== END 2022-10-06 08:27 | disposition home or self-care (01) ==
LOC: RAD 08:27
PROVIDERS: PCP Family Medicine; Visit Provider Orthopaedic Surgery
DX: M48.062 Spinal stenosis, lumbar region with neurogenic claudication (principal); M54.6 Pain in thoracic spine; Z98.890 Other specified postprocedural states
CPT/HCPCS: 72146; 72148

== ENCOUNTER → 2022-10-24 10:35 | Outpatient (BNVA) | payer MEDICAID, SELFPAY | PROVIDERS: PCP Family Medicine; Visit Provider Orthopaedic Surgery | DX: M48.062 Spinal stenosis, lumbar region with neurogenic claudication (principal); Z98.890 Other specified postprocedural states | CPT/HCPCS: 99214 ==

== ENCOUNTER 2022-10-30 11:35 | Outpatient (CLI) | payer MEDICAID, SELFPAY ==
[2022-10-30 11:56] LABS: Add Urine Microscopic? NO; Charge for UA Resulting for Rev
[2022-10-30 12:04] LABS: Basophils % 0.4 %; Eosinophils % 0.4 %; Hematocrit 41.2 % (37-53); Lymphocytes # 3.1 10^3/uL (0.8-4.8); Lymphocytes % 34.4 %; Mean Corpuscular HGB Conc 34.2 g/dL (30-55); Mean Corpuscular Hemoglobin 32.9 pg (27-33); Mean Platelet Volume 9.1 fL (7.4-10.4); Monocytes # 0.5 10^3/uL (0.2-0.9); Monocytes % 5.1 %; Neutrophils # 5.29 10^3/uL (1.8-7.7); Neutrophils % 59.5 %; Nucleated Red Blood Cells % 0 %; Platelet Count 155 10^3/cmm (157-399); Red Blood Count 4.29 10^6/uL (3.85-5.65); Red Cell Distribution Width 12.4 % (12.1-15.1)
[2022-10-30 12:15] LABS: Bilirubin Urine Neg (Negative); Blood Urine Neg (Negative); Glucose Urine UA Norm (Normal); Ketones Urine Negative (Negative); Leukocyte Esterase Urine Negative (Negative); Nitrate Urine Negative (Negative); Protein Urine Neg (Negative); Specific Gravity, Urine 1.005 (1.005-1.030); Urine Appearance Clear (CLEAR); Urine Color Straw (Yellow); Urobilinogen Urine Norm (Negative); pH Urine 5 (5-7)
[2022-10-30 12:29] LABS: Alanine Aminotransferase 14 U/L (0-41); Albumin Level 4.6 g/dL (3.5-5.2); Alkaline Phosphatase 69 U/L (40-130); Anion Gap 13.4 (5-19); Aspartate Amino Transferase 18 U/L (0-40); Blood Urea Nitrogen 15 mg/dL (6-20); Calcium 9.3 mg/dL (8.5-10.5); Carbon Dioxide 25 mmol/L (22-29); Chloride 99 mmol/L (98-107); Globulin 2.7 g/dL (1.3-4.6); Glomerular Filtration Rate 80.8 mL/min (90-130); Glucose 104 mg/dL (65-115); Osmolality Calculated 277 mOsm/kg (285-295); Potassium 4.4 mmol/L (3.5-5.1); Sodium 133 mmol/L (136-145); Total Bilirubin 0.2 mg/dL (0.15-1.2); Total Protein 7.3 g/dL (6.6-8.7)
== END 2022-10-30 11:36 | disposition home or self-care (01) ==
PROVIDERS: PCP Family Medicine; Visit Provider Orthopaedic Surgery
DX: Z98.890 Other specified postprocedural states (principal)
CPT/HCPCS: 80053; 81003; 85025

== ENCOUNTER → 2022-11-08 10:40 | Outpatient (BNVA) | payer MEDICAID, SELFPAY | PROVIDERS: PCP Family Medicine; Visit Provider Family Medicine | DX: Z01.818 Encounter for other preprocedural examination (principal) | CPT/HCPCS: 80048; 85025 ==

== ENCOUNTER 2022-11-22 07:03 | Day surgery (SDC) | payer MEDICAID, SELFPAY ==
[2022-11-21 08:10] VITALS: BMI 20.9
[2022-11-22] VITALS (7 sets, daily range): BP systolic 120–153; BP diastolic 67–87; PULSE 53–70; RESP 15–19; TEMP 36.1–36.2; O2SAT 96–99
--- NOTE | 2022-11-22 | XR_ITS ---
WS: [email or web address] Lumbar spine, C ARM fluoroscopy views, 11/22/2022 Clinical Data: or pic. L3-4 decompression Comparison: None. Findings: Dr. Rg performed a posterior lumbar decompression. Impression: Posterior lumbar decompression.
[2022-11-22] MEDS: sodium chloride 0.9% 1,000 ML 30 ML IV (07:24)
[2022-11-22] MEDS: HYDROmorphone 1 mg/mL INJ 1 mL 0.5 MG IVP (07:59)
--- NOTE | 2022-11-22 08:38 | W.PM.OPSUD ---
Surgery/Procedure H&P Update DATE OF PROCEDURE: November 22, 2022 DATE H&P PERFORMED: 11/08/22 H&P UPDATE INFORMATION: I have reviewed H&P completed within last 30 days, I have examined patient prior to procedure and No changes to prior documentation PREOP DIAGNOSIS: Lumbar radiculopathy PLANNED PROCEDURE: Operation Date: 11/22/22 08:40 Proposed Procedures p 83958: left L 3/4, M48.062: Lumbar stenosis with neurogenic claudication(Left) - Karel Rg DO
[2022-11-22] MEDS: ceFAZolin 2,000 MG in sodium chloride 0.9% (plus) 50 ML 100 MG IV (08:51)
[2022-11-22] MEDS: lidocaine-epi 2% 20 mL INJ INJECTION (09:13)
--- NOTE | 2022-11-22 09:43 | P.OP_ITS ---
Operative Report Date of procedure: November 22, 2022 Pre-op diagnosis: Lumbar stenosis with neurogenic claudication Post-op diagnosis: same Procedure done: L3-4 revision laminectomy with partial facetectomy Surgeon: Karel Rg DO Agency Cashier: Kenny Vincent Agency Cashier: The placement assistant, SONNY Tesfaye was needed for his expertise under the microscope. He was important and necessary throughout the procedure to complete in a safe and timely manner. He assisted with patient positioning prepping and draping tissue retraction suctioning of the operative field protection of the dural sac and tissue closure Estimated blood loss (mL): 20 Procedure: L3-4 revision laminectomy with partial facetectomy Patient is brought to the operative suite. After undergoing anesthesia they are placed in the prone position. All areas of impingement are well padded. Patient is then prepped and draped in the normal sterile fashion. A skin incision is made over the L3/4 level. This is confirmed under c-arm guidance. A series of dilators are passed and the tubular retractor is docked on the L3 lamina. A bovie is used to clear the soft tissue off the lamina and the L 3/4 facet joint. A high speed yara is then used to perform the laminectomy and take down the medial aspect of the L 3/4 facet joint. A kerrison rongeure was then used to take down the remaining lamina and smooth the edge of the laminectomy up to the point where the ligamentum flavum attaches. Attention was then brought to the medial aspect of the facet joint. The remaining medial aspect of the superior and inferior aspect of the facet joint were taken down with the kerrison from the pedicle of L3 to L 4. The facet joint had significant hypertrophy. Attention was then brought to the Ligamentum Flavum. The ligament was taken down from the lamina of L3 to L4 and out medially to the remaining facet joint. The ligament was thick. The dura was then exposed. The dura was in good repair. The L3 nerve was then traced with a curette out the L3/4 foramen and found to be adequately decompressed. The L4 nerve was traced with a curette around the L4 pedicle. The lateral recess was opened with a kerrison helping to further decompress the L4 nerve. Wound is then irrigated copiously with saline and surgiflo is used to stop any bleeding. The tubular retractor is removed and the wound is closed with vicryl and monocryl suture. Glue is then used to protect the wound. A sterile dressing is then placed. Patient was then placed in the supine position and transferred to the PACU in stable condition.
--- NOTE | 2022-11-22 11:01 | ANES.PREANE2 ---
Pre-Anesthetic Assessment Height/Weight: Height 1.75 m Weight 64.41 kg Temp Pulse Resp BP Pulse Ox O2 Del Method 97.0 F L 53 L 18 149/83 97 Room Air 11/22/22 09:47 11/22/22 10:26 11/22/22 10:26 11/22/22 10:26 11/22/22 10:11/22/22 10:26 Preop Diagnosis: Lumbar radiculopathy Operation Date: 11/22/22 08:40 Proposed Procedures p 22284: left L 3/4, M48.062: Lumbar stenosis with neurogenic claudication(Left) - Karel Rg DO Familial anesthetic complications: none Was Beta Angella taken within 24 hours: N/A Was Clonidine taken within 24 hours: N/A Last intake: Intake Last Liquid Date 11/21/22 Last Liquid Time 17:15 Last Solid Date 11/21/22 Last Solid Time 17:15 Social Tobacco and No alcohol Exam alert, oriented x 3 and regular rate & rhythm Airway Submandibular: within normal limits Cervical ROM: within normal limits Mallampati: Class I Dentition: chipped Comments: Comments: very poor dentition, missing most Pulmonary Chronic Obstructive Pulmonary Disease Musc/skel Lower Back Pain and Osteoarthritis/DJD Chronic pain/opioid Neuropsych Anxiety and Depression Anesthetic Plan ASA status: 3 Anesthesia: General Medications/Allergies Home Medications Medication Instructions Recorded Confirmed Last Taken Type buspirone 15 mg tablet See Rx Instructions .Route 09/08/22 11/22/22 11/21/22 Rx .COMPLEX #90 tabs fluoxetine 40 mg capsule See Rx Instructions .Route 09/08/22 11/22/22 11/22/22 Rx .COMPLEX #60 caps lithium carbonate 300 mg capsule See Rx Instructions .Route 09/08/22 11/22/22 11/21/22 Rx .COMPLEX #30 caps quetiapine 200 mg tablet See Rx Instructions .Route 09/08/22 11/22/22 11/21/22 Rx .COMPLEX #30 tabs hydrocodone 5 mg-acetaminophen 325 1 tab PO Q6H PRN pain 5 days #20 11/21/22 11/22/22 11/21/22 Rx mg tablet tabs hydrocodone 5 mg-acetaminophen 325 1 - 2 tab PO .Q4-6H #40 tabs 11/22/22 Unknown Rx mg tablet Allergies Allergy/AdvReac Type Severity Reaction Status Date / Time tramadol Allergy HIVES Verified 11/08/22 10:20 [facility] Anesthesia Medical History Alcohol dependence, uncomplicated Alcohol use disorder in remission Benzodiazepine abuse Cannabis dependence, uncomplicated Cannabis use disorder in remission Chronic low back pain Disc displacement, cervical H/O degenerative disc disease Hx of fracture of ankle (~05/2018) LEFT ANKLE DR CAGLE IN [facility] 05/2018 [place] use Long-term use of high-risk medication Malingering On combination antipsychotic drug therapy On combination antipsychotic drug therapy Smoking Social phobia, unspecified Social phobia, unspecified Spondylolisthesis, cervical region Spondylosis without myelopathy or radiculopathy Substance abuse Surgical History Hx of cervical spine surgery (~08/03/16) 08/03/16 C6-7 ACDFF 07/2020 1. Anterior diskectomy C5/6 2. Insertion of cage C5/6 3. Instrumentation withscrews into C5 and C6 4. Use of allograft Family History Father , UNKNOWN CAUSE No problems noted. Denies family history of Diabetes Anesthesia complication Bleeding disorder Cancer Social History Smoking and tobacco status: current every day smoker cigarettes Packs smoked per day: 0.5 Years cigarettes smoked: 20 [ Other cigarette details: 6 CIGS DAY ] Alcohol intake: never Substance/Drug Use: never Lives independently: Yes Marital status: Single Current occupational status: disabled Data Anesthesia Cardiac Studies: No Data to Display
--- NOTE | 2022-11-22 16:38 | ANE.PACU2 ---
Inpatient post-anesthesia follow up: Airway intact: Yes Vital signs: Temperature 97.0 F Pulse Rate 53 Respiratory Rate 18 Blood Pressure 149/83 Pulse Oximetry 97 Oxygen Delivery Me thod Room Air Oxygen Flow Rate Fraction of Inspir ed Oxygen Hydration adequate: Yes Nausea and vomiting: No Pain level: 3 Mental status: Baseline
== END 2022-11-22 10:38 | disposition home or self-care (01) ==
PROVIDERS: PCP Family Medicine; Visit Provider Orthopaedic Surgery
PROC: (CPT 63005; principal; 2022-11-22 08:40)
DX: M48.062 Spinal stenosis, lumbar region with neurogenic claudication (principal); J44.9 Chronic obstructive pulmonary disease, unspecified; Z79.899 Other long term (current) drug therapy; F17.210 Nicotine dependence, cigarettes, uncomplicated
CPT/HCPCS: 63047; 72020; 76000; J0690; J1100; J1170; J2405; J2704; J2710; J3010; J3490; J7030

== ENCOUNTER → 2022-12-05 13:14 | Outpatient (BNVA) | payer MEDICAID, SELFPAY | PROVIDERS: PCP Family Medicine; Visit Provider Physician Assistant | DX: Z47.89 Encounter for other orthopedic aftercare (principal) | CPT/HCPCS: 72100; 99024 ==

== ENCOUNTER → 2023-01-02 07:52 | Outpatient (BNVA) | payer MEDICAID, SELFPAY | PROVIDERS: PCP Family Medicine; Visit Provider Physician Assistant | DX: Z47.89 Encounter for other orthopedic aftercare; Z79.891 Long term (current) use of opiate analgesic; F17.210 Nicotine dependence, cigarettes, uncomplicated | CPT/HCPCS: 99024 ==

== ENCOUNTER → 2023-02-22 09:50 | Outpatient (BNVA) | payer MEDICAID, SELFPAY | PROVIDERS: PCP Family Medicine; Visit Provider Physician Assistant | DX: Z47.89 Encounter for other orthopedic aftercare (principal); Z79.891 Long term (current) use of opiate analgesic | CPT/HCPCS: 99213 ==

== ENCOUNTER → 2023-03-14 13:04 | Outpatient (BNVA) | payer MEDICAID, SELFPAY | PROVIDERS: PCP Family Medicine; Visit Provider Nurse Practitioner | DX: Z79.899 Other long term (current) drug therapy (principal); F12.91 Cannabis use, unspecified, in remission; F41.1 Generalized anxiety disorder; F10.91 Alcohol use, unspecified, in remission; F40.10 Social phobia, unspecified | CPT/HCPCS: 80061; 80178; 83036 ==

== ENCOUNTER → 2023-03-27 11:08 | Outpatient (BNVA) | payer MEDICAID, SELFPAY | PROVIDERS: PCP Family Medicine; Visit Provider Orthopaedic Surgery | DX: Z47.89 Encounter for other orthopedic aftercare (principal); M25.552 Pain in left hip | CPT/HCPCS: 73502; 99214 ==

== ENCOUNTER 2023-04-19 08:16 | Outpatient (CLI) | payer MEDICAID, SELFPAY ==
--- NOTE | 2023-04-19 08:45 | MR_ITS ---
WS: [id number] MRI LEFT HIP WITHOUT CONTRAST. COMPARISON: Radiograph 03/27/2023 Multiplanar, multisequence imaging is performed without contrast. No fractures or marrow edema. There is mild narrowing of the hip joints bilaterally. Slightly greater irregularity involving the superior acetabular cartilage. Superior acetabulum is very slightly irreg ular. There is no bone upon bone. No CAM deformity or marrow edema noted at the femoral head and neck junction. No joint effusion. No trochanteric bursitis. Visualized sacrum and the SI joints are normal. No free fluid in the pelvis. Normal urinary bladder. No adenopathy in the inguinal regions. Symmetric appearance of the muscles. No marrow or muscle edema . No labral tear identified of the LEFT hip. IMPRESSION: 1. Very mild joint space narrowing involving the hips but greater on the LEFT. No marrow edema. 2. No femoral acetabular impingement changes. 3. No labral tear. 4. No muscle or marrow edema.
--- NOTE | 2023-04-19 09:30 | MR_ITS ---
WS: [id number] MRI LUMBAR SPINE NONCONTRAST HISTORY: back pain, severe LEFT hip and low back pain. COMPARISON: 10/06/2022 TECHNIQUE: Sagittal and axial multisequence imaging is submitted. Cervical fusion hardware. L3 retrolisthesis by 2 mm. Otherwise alignment is normal. No fracture or marrow edema. Mild disc desiccation. Conus terminates normally at L1-2 disc level. L1-L2: Normal. L2-L3: Very minimal facet and ligamentum flavum hypertrophy. No progression. L3-L4: New mild asymmetric disc bulging. Slightly greater disc bulging and probable disc protrusion i n the LEFT foramen has increased since the prior study. There is slightly greater contact on the LEFT lateral thecal sac and the L3 and L4 nerve roots. LEFT hemilaminectomy defect. L4-L5: Mild facet arthritis. No stenosis. Very slight narrowing of the foramina due to disc disease a nd facet disease. Similar to the prior study. LEFT hemilaminectomy defect. L5-S1: Moderate bilateral facet joint arthritis encroaching upon the foramina. There is very mild remy ateral foraminal stenosis. There is slight disc contact on the undersurface of the exiting nerve root s. Similar to the prior study. There is mild increased signal in the paravertebral soft tissues associated with the facet joints of L3-4, L4-5 and L5-S1 with no progression since the prior study. Consistent with a mild synovitis asso ciated with the facet joints. IMPRESSION: 1. Status post LEFT hemilaminectomy defects at L3-4 and L4-5 unchanged. 2. Very slight progression of disc contact with asymmetric bulging on the LEFT lateral thecal sac. S lightly greater contact on the LEFT L3 and L4 nerve roots as compared to the prior study. No high-gra de stenosis. 3. Very minimal disc contact on the undersurface of the exiting L5 nerve roots. 4. Very mild foraminal narrowing at L4-5, unchanged.
== END 2023-04-19 08:17 | disposition home or self-care (01) ==
LOC: RAD 08:17
PROVIDERS: PCP Family Medicine; Visit Provider Orthopaedic Surgery
DX: M48.061 Spinal stenosis, lumbar region without neurogenic claudication (principal); M25.552 Pain in left hip; Z98.890 Other specified postprocedural states
CPT/HCPCS: 72148; 73721

== ENCOUNTER → 2023-04-20 08:31 | Outpatient (BNVA) | payer MEDICAID, SELFPAY | PROVIDERS: PCP Family Medicine; Visit Provider Orthopaedic Surgery | DX: M25.552 Pain in left hip | CPT/HCPCS: 99214 ==

== ENCOUNTER → 2023-08-23 13:18 | Outpatient (BNVA) | payer MEDICAID, SELFPAY ==
[2023-04-27 12:27] VITALS: BP 129/80; BMI 19.2
== END ==
PROVIDERS: PCP Family Medicine; Visit Provider Orthopaedic Surgery
DX: M54.9 Dorsalgia, unspecified (principal)
CPT/HCPCS: 72100; 99214

== ENCOUNTER 2023-10-02 08:26 | Outpatient (CLI) | payer MEDICAID, SELFPAY ==
[2023-04-27 12:27] VITALS: BP 129/80; BMI 19.2
--- NOTE | 2023-10-02 08:45 | MR_ITS ---
WS: [id number] MRI LUMBAR SPINE NONCONTRAST TECHNIQUE: Sagittal T1, T2 and STIR imaging. Axial T1 and T2 imaging. CLINICAL INFORMATION: back pain COMPARISON: MRI 04/19/2023 FINDINGS: Mild lumbar curve. No acute compression. No high-grade central canal stenosis. Prior postoperative ch anges LEFT hemilaminectomies L3-L4 and L4-L5. L1-L2: Normal. L2-L3: Mild annular bulging. Mild facet arthropathy. Spinal canal and foramen are patent. L3-L4: Slight retrolisthesis. Mild annular bulging. Mild facet arthropathy. Small bilateral foraminal protrusions with mild LEFT greater than RIGHT foraminal narrowing. Slight contact of the exiting LEF T L3 nerve root. This appears similar to previous. L4-L5: Mild annular bulging. Slight narrowing LEFT subarticular recess. Moderate facet arthropathy. L EFT foraminal protrusion slightly contacts the exiting LEFT L4 nerve root. This appears unchanged. Sp inal canal and foramen are patent. Moderate facet arthropathy. L5-S1: Mild annular bulging. Slight effacement of the ventral thecal sac. Moderate facet arthropathy. Small RIGHT foraminal protrusion with slight contact of the exiting RIGHT L5 nerve root unchanged. Small RIGHT renal cyst. Visualized pelvic bony structures: Normal. Paravertebral soft tissues: Normal. MR/MR lumbar spine wo con* [id number] IMPRESSION: 1. Prior postoperative changes LEFT L3-L4 and L4-L5, laminectomies 2. Overall no remarkable changes compared to previous. 3. Small LEFT foraminal protrusion L3-4 with mild LEFT foraminal narrowing sim ilar to previous. 4. Small LEFT foraminal protrusion L4-5 with slight contact of the exiting L4 nerve root appears stable. 5. Small RIGHT foramen protrusion L5-S1 slightly contacts the exiting RIGHT L5 nerve root similar to previous. 6. Moderate facet arthropathy L3-L5.
== END 2023-10-02 08:27 | disposition home or self-care (01) ==
LOC: RAD 08:26
PROVIDERS: PCP Family Medicine; Visit Provider Orthopaedic Surgery
DX: M48.062 Spinal stenosis, lumbar region with neurogenic claudication (principal); Z98.890 Other specified postprocedural states; M47.896 Other spondylosis, lumbar region
CPT/HCPCS: 72148

== ENCOUNTER → 2023-10-16 08:33 | Outpatient (BNVA) | payer MEDICAID, SELFPAY ==
[2023-04-27 12:27] VITALS: BP 129/80; BMI 19.2
== END ==
PROVIDERS: PCP Family Medicine; Visit Provider Orthopaedic Surgery
DX: M48.062 Spinal stenosis, lumbar region with neurogenic claudication (principal)
CPT/HCPCS: 99214

== ENCOUNTER 2023-10-18 08:23 | Outpatient (CLI) | payer MEDICAID, SELFPAY ==
[2023-04-27 12:27] VITALS: BP 129/80; BMI 19.2
[2023-10-18 08:41] LABS: Basophils % 0.3 %; Eosinophils # 0.1 10^3/uL (0.0-0.8); Eosinophils % 0.6 %; Lymphocytes # 2.9 10^3/uL (0.8-4.8); Lymphocytes % 33.8 %; Mean Corpuscular HGB Conc 33.6 g/dL (30-55); Mean Corpuscular Hemoglobin 32.2 pg (27-33); Mean Corpuscular Volume 95.9 fl (82-101); Mean Platelet Volume 9.4 fL (7.4-10.4); Monocytes # 0.5 10^3/uL (0.2-0.9); Monocytes % 5.8 %; Neutrophils # 5.12 10^3/uL (1.8-7.7); Neutrophils % 59.2 %; Nucleated Red Blood Cells % 0 %; Platelet Count 154 10^3/cmm (157-399); Red Blood Count 4.59 10^6/uL (3.85-5.65); White Blood Count 8.65 10^3/uL (3.29-11.43)
[2023-10-18 09:00] LABS: Alanine Aminotransferase 11 U/L (0-41); Albumin Level 4.7 g/dL (3.5-5.2); Alkaline Phosphatase 63 U/L (40-130); Anion Gap 12.6 (5-19); Aspartate Amino Transferase 18 U/L (0-40); Blood Urea Nitrogen 16 mg/dL (6-20); Calcium 9.5 mg/dL (8.5-10.5); Carbon Dioxide 27 mmol/L (22-29); Chloride 102 mmol/L (98-107); Globulin 2.7 g/dL (1.3-4.6); Glomerular Filtration Rate 90.8 mL/min (90-130); Glucose 109 mg/dL (65-115); Osmolality Calculated 286 mOsm/kg (285-295); Potassium 4.6 mmol/L (3.5-5.1); Sodium 137 mmol/L (136-145); Total Bilirubin 0.3 mg/dL (0.15-1.2); Total Protein 7.4 g/dL (6.6-8.7)
[2023-10-18 09:41] LABS: Charge for UA Resulting for Rev
[2023-10-18 10:01] LABS: Bacteria Urine None Seen /hpf; Hyaline Casts Urine 0-4 /lpf; RBC Urine 0-2 /hpf (0-2); Squamous Epithelial Cell Urine 0-5 /hpf (0-5); WBC Urine 0-5 /hpf (0-5)
[2023-10-18 10:08] LABS: Bilirubin Urine Negative (Negative); Blood Urine Negative (Negative); Glucose Urine UA Negative (Normal); Ketones Urine Negative (Negative); Leukocyte Esterase Urine Negative (Negative); Nitrate Urine Negative (Negative); Protein Urine Negative (Negative); Specific Gravity, Urine 1.005 (1.005-1.030); Urine Appearance Clear (CLEAR); Urine Color Yellow (Yellow); Urobilinogen Urine 0.2 mg/dL (Negative); pH Urine 6.5 (5-7)
== END 2023-10-18 08:24 | disposition home or self-care (01) ==
PROVIDERS: PCP Family Medicine; Visit Provider Orthopaedic Surgery
DX: Z98.890 Other specified postprocedural states (principal)
CPT/HCPCS: 36415; 80053; 81003; 81015; 85025

== ENCOUNTER 2023-11-12 07:45 | Day surgery (SDC) | payer MEDICAID, SELFPAY ==
[2023-04-27 12:27] VITALS: BP 129/80; BMI 19.2
--- NOTE | 2023-11-11 15:27 | P.ANESASSM_ITS ---
Pre-Anesthetic Assessment Height/Weight: Height 5 ft 9 in Preop Diagnosis: Lumbar stenosis Operation Date: 11/12/23 10:00 Proposed Procedures p Lumbar Spine Decompression Lumbar Decompression(Not Applicable) - Karel Rg, DO Was Beta Angella taken within 24 hours: N/A Was Clonidine taken within 24 hours: N/A Social Tobacco Prior alcoholic, quit years ago Exam alert, oriented x 3 and regular rate & rhythm Diminished breath sounds bilaterally Airway Submandibular: within normal limits Cervical ROM: within normal limits Mallampati: Class II Dentition: other (Multiple missing teeth, patient denies any loose teeth) Anesthetic Plan Anesthesia: General Other: No prior issues with anesthesia NPO since midnight History of alcohol use disorder, currently in remission Multiple psychiatric medications Patient reports cervical issues, plan for video laryngoscopy Labs 10/17 reviewed and acceptable for surgery Prior EKG showing sinus rhythm Plan for GETA Medications/Allergies Home Medications Medication Instructions Recorded Confirmed Last Taken Type buspirone 15 mg tablet 15 mg PO TID 11/09/23 11/09/23 11/11/23 History fluoxetine 40 mg capsule 80 mg PO DAILY 11/09/23 11/09/23 11/11/23 History lithium carbonate 300 mg capsule 300 mg PO BEDTIME 11/09/23 11/09/23 11/11/23 History quetiapine 200 mg tablet 200 mg PO BEDTIME 11/09/23 11/09/23 11/11/23 History Allergies Allergy/AdvReac Type Severity Reaction Status Date / Time tramadol Allergy HIVES Verified 11/02/23 10:29 [facility] Anesthesia Medical History PAM (generalized anxiety disorder) On combination antipsychotic drug therapy Social phobia, unspecified [place] use On combination antipsychotic drug therapy Cannabis dependence, uncomplicated Alcohol dependence, uncomplicated Benzodiazepine abuse 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 Anterior diskectomy C5/6 2. Insertion of cage C5/6 3. Instrumentation withscrews into C5 and C6 4. Use of allograft Family History Father , UNKNOWN CAUSE No problems noted. Denies family history of Diabetes Anesthesia complication Bleeding disorder Cancer Social History Smoking and tobacco/nicotine status: current every day tobacco/nicotine user cigarettes Packs smoked per day: 0.5 Years cigarettes smoked: 20 [ Other cigarette details: 6 CIGS DAY ] Alcohol intake: never Substance/Drug Use: never Lives independently: Yes Marital status: Single Current occupational status: disabled Data Anesthesia Cardiac Studies: No Data to Display
[2023-11-12] VITALS (14 sets, daily range): BP systolic 133–148; BP diastolic 78–91; PULSE 57–87; RESP 16–18; TEMP 36.6–36.7; O2SAT 92–99
[2023-11-12] MEDS: sodium chloride 0.9% 1,000 ML 30 ML IV (08:25)
--- NOTE | 2023-11-12 09:34 | W.PM.OPSUD ---
Surgery/Procedure H&P Update DATE OF PROCEDURE: November 12, 2023 DATE H&P PERFORMED: 11/02/23 H&P UPDATE INFORMATION: I have reviewed H&P completed within last 30 days, I have examined patient prior to procedure and No changes to prior documentation PREOP DIAGNOSIS: Lumbar stenosis with neurogenic claudication PLANNED PROCEDURE: Operation Date: 11/12/23 09:40 Proposed Procedures p Lumbar Spine Decompression Lumbar Decompression(Not Applicable) - Karel Rg DO
[2023-11-12] MEDS: fentaNYL 50 mcg/mL INJ 2mL IVP ×2 (09:38→11:00)
[2023-11-12] MEDS: ceFAZolin 2,000 mg SDV 2000 MG IVP (09:50)
[2023-11-12] MEDS: lidocaine-epi 1% 20 mL INJ INJECTION (10:23)
--- NOTE | 2023-11-12 10:39 | XR_ITS ---
WS: [id number] C-ARM RADIOGRAPHS LUMBAR SPINE; 2 IMAGES HISTORY: OR PICS COMPARISON: 11/22/2022 Intraoperative imaging during spinal decompression surgery. There is a marker projecting over the L5- S1 disc level. XR/XR lumbar spine 2-3V* [id number] IMPRESSION: Intraoperative imaging during spinal decompression surgery.
--- NOTE | 2023-11-12 10:48 | PM.OP ---
Operative Report Date of procedure: November 12, 2023 Pre-op diagnosis: Lumbar stenosis with neurogenic claudication Post-op diagnosis: same Procedure done: L5-S1 laminectomy with partial facetectomy Surgeon: Karel Rg DO Estimated blood loss (mL): 10 Procedure: L5-S1 laminectomy with partial facetectom Patient is brought to the operative suite. After undergoing anesthesia they are placed in the prone position. All areas of impingement are well padded. Patient is then prepped and draped in the normal sterile fashion. A skin incision is made over the L5-S1 level. This is confirmed under c-arm guidance. A series of dilators are passed and the tubular retractor is docked on the L5 lamina. A bovie is used to clear the soft tissue off the lamina and the L 5/S1 facet joint. A high speed yara is then used to perform the laminectomy and take down the medial aspect of the L 5/S1 facet joint. A kerrison rongeure was then used to take down the remaining lamina and smooth the edge of the laminectomy up to the point where the ligamentum flavum attaches. Attention was then brought to the medial aspect of the facet joint. The remaining medial aspect of the superior and inferior aspect of the facet joint were taken down with the kerrison from the pedicle of L5 to S1. The facet joint had significant hypertrophy. Attention was then brought to the Ligamentum Flavum. The ligament was taken down from the lamina of L5 to S1 and out medially to the remaining facet joint. The ligament was thick. The dura was then exposed. The dura was in good repair. The L5 nerve was then traced with a curette out the L5/s1 foramen and found to be adequately decompressed. The S1 nerve was traced with a curette around the S1 pedicle. The lateral recess was opened with a kerrison helping to further decompress the S1 nerve. Wound is then irrigated copiously with saline and surgiflo is used to stop any bleeding. The tubular retractor is removed and the wound is closed with vicryl and monocryl suture. Glue is then used to protect the wound. A sterile dressing is then placed. Patient was then placed in the supine position and transferred to the PACU in stable condition.
[2023-11-12] MEDS: HYDROcodone-acetaminophen 5-325 mg Tablet 2 TAB PO (11:40)
--- NOTE | 2023-11-12 12:03 | ANE.PACU2 ---
Inpatient post-anesthesia follow up: Airway intact: Yes Vital signs: Temperature 97.9 F Pulse Rate 57 Respiratory Rate 16 Blood Pressure 140/78 Pulse Oximetry 93 Oxygen Delivery Me thod Room Air Oxygen Flow Rate Fraction of Inspir ed Oxygen Hydration adequate: Yes Nausea and vomiting: No Pain level: 1 Mental status: Baseline
== END 2023-11-12 12:03 | disposition home or self-care (01) ==
PROVIDERS: PCP Family Medicine; Visit Provider Orthopaedic Surgery
PROC: (CPT 63005; principal; 2023-11-12 09:20)
DX: M48.062 Spinal stenosis, lumbar region with neurogenic claudication (principal); F41.1 Generalized anxiety disorder; Z79.899 Other long term (current) drug therapy; F17.210 Nicotine dependence, cigarettes, uncomplicated
CPT/HCPCS: 63047; 72100; 76000; J0330; J0690; J1100; J2250; J2405; J2704; J3010; J3490; J7030

== ENCOUNTER → 2023-11-27 10:43 | Outpatient (BNVA) | payer MEDICAID, SELFPAY ==
[2023-04-27 12:27] VITALS: BP 129/80; BMI 19.2
== END ==
PROVIDERS: PCP Family Medicine; Visit Provider Orthopaedic Surgery
DX: Z98.890 Other specified postprocedural states (principal)
CPT/HCPCS: 99024

== ENCOUNTER → 2024-01-08 10:46 | Outpatient (BNVA) | payer MEDICAID, SELFPAY ==
[2023-04-27 12:27] VITALS: BP 129/80; BMI 19.2
== END ==
PROVIDERS: PCP Family Medicine; Visit Provider Orthopaedic Surgery
DX: Z98.890 Other specified postprocedural states; M47.812 Spondylosis without myelopathy or radiculopathy, cervical region; M50.90 Cervical disc disorder, unspecified, unspecified cervical region
CPT/HCPCS: 99024

== ENCOUNTER 2024-01-22 08:35 | Outpatient (CLI) | payer MEDICAID, SELFPAY ==
[2023-04-27 12:27] VITALS: BP 129/80; BMI 19.2
--- NOTE | 2024-01-22 08:45 | MR_ITS ---
WS: [id number] MRI CERVICAL SPINE NONCONTRAST TECHNIQUE: Sagittal T1, T2 and STIR imaging. Axial T2, gradient, and fiesta imaging. CLINICAL INFORMATION: neck pain COMPARISON: MRI 2019 FINDINGS: Normal cervical alignment. Prior postoperative changes ACDF C5-C7. C5 fusion appears new compared to 2019. No high-grade central canal stenosis. Cord signal appears normal. C2-C3: Normal. C3-C4: Mild disc bulging with endplate ridging. Mild facet arthropathy. Mild LEFT and no significant RIGHT foraminal narrowing. Spinal canal is patent. C4-C5: Mild disc bulging with slight effacement of the ventral thecal sac. Mild LEFT and no significa nt RIGHT foraminal narrowing. Mild facet arthropathy. C5-C6: Prior postoperative changes ACDF. Mild facet arthropathy. Mild LEFT greater than RIGHT bony fo raminal narrowing. Spinal canal is patent. C6-C7: Prior postoperative changes ACDF. Mild bilateral bony foraminal narrowing. Mild facet arthropa thy. Spinal canal is patent. C7-T1: Mild disc bulge with osteophytic ridging eccentric to the LEFT. Mild LEFT and no significant R IGHT foraminal narrowing. Spinal canal is patent. Visualized brain stem structures: Normal. Prevertebral soft tissues: Normal. MR/MR cervical spin wo con* [id number] IMPRESSION: 1. Prior postoperative changes ACDF C5-C7. 2. Mild disc bulging C4-5 with slight effacement of the ventral thecal sac. 3. No significant central canal stenosis. 4. Mild bony foraminal narrowing worse at LEFT C3-C4, LEFT C4-C5, LEFT C5-C6 a nd bilateral C6-7.
== END 2024-01-22 08:36 | disposition home or self-care (01) ==
LOC: RAD 08:35
PROVIDERS: PCP Family Medicine; Visit Provider Orthopaedic Surgery
DX: M47.812 Spondylosis without myelopathy or radiculopathy, cervical region (principal); M50.90 Cervical disc disorder, unspecified, unspecified cervical region; M43.22 Fusion of spine, cervical region
CPT/HCPCS: 72141

== ENCOUNTER → 2024-02-14 08:30 | Outpatient (BNVA) | payer MEDICAID, SELFPAY ==
[2023-04-27 12:27] VITALS: BP 129/80; BMI 19.2
== END ==
PROVIDERS: PCP Family Medicine; Visit Provider Orthopaedic Surgery
DX: Z98.890 Other specified postprocedural states (principal)
CPT/HCPCS: 99024

== ENCOUNTER 2024-03-26 10:51 | Outpatient (RCR) | payer MEDICAID, SELFPAY ==
[2023-04-27 12:27] VITALS: BP 129/80; BMI 19.2
== END 2024-03-28 23:59 | disposition home or self-care (01) ==
LOC: SPT 10:51
PROVIDERS: Visit Provider Orthopaedic Surgery
DX: M54.2 Cervicalgia (principal); G89.29 Other chronic pain
CPT/HCPCS: 97161

== ENCOUNTER → 2024-05-20 10:26 | Outpatient (BNVA) | payer MEDICAID, SELFPAY ==
[2023-04-27 12:27] VITALS: BP 129/80; BMI 19.2
== END ==
PROVIDERS: Visit Provider Orthopaedic Surgery
DX: Z76.89 Persons encountering health services in other specified circumstances (principal); M47.812 Spondylosis without myelopathy or radiculopathy, cervical region
CPT/HCPCS: 99213

== ENCOUNTER → 2024-06-17 14:46 | Outpatient (BNVA) | payer OTHER, SELFPAY ==
[2023-04-27 12:27] VITALS: BP 129/80; BMI 19.2
== END ==
PROVIDERS: Visit Provider Nurse Practitioner
DX: Z79.899 Other long term (current) drug therapy (principal)
CPT/HCPCS: 80061; 80178; 83036; 84443

== ENCOUNTER → 2024-08-05 10:43 | Outpatient (BNVA) | payer MEDICAID, SELFPAY ==
[2024-06-18 15:29] VITALS: BP 122/80; BMI 16.2
== END ==
PROVIDERS: PCP Family Medicine; Visit Provider Orthopaedic Surgery
DX: Z98.890 Other specified postprocedural states (principal)
CPT/HCPCS: 99213

== ENCOUNTER → 2024-08-21 10:03 | Outpatient (BNVA) | payer MEDICAID, SELFPAY ==
[2024-06-18 15:29] VITALS: BP 122/80; BMI 16.2
== END ==
PROVIDERS: PCP Family Medicine; Visit Provider Student in an Organized Health Care Education/Training Program
DX: R12 Heartburn (principal)
CPT/HCPCS: 99204

== ENCOUNTER 2024-09-16 08:04 | Day surgery (SDC) | payer MEDICAID, SELFPAY ==
[2024-06-18 15:29] VITALS: BP 122/80; BMI 16.2
[2024-09-16 08:18] VITALS: BP 110/70; PULSE 60; RESP 16; TEMP 36.2; O2SAT 96; BMI 20.7
--- NOTE | 2024-09-16 08:47 | P.ANESASSM_ITS ---
Pre-Anesthetic Assessment Height/Weight: Height 1.75 m Weight 63.503 kg Temp Pulse Resp BP Pulse Ox O2 Del Method 97.2 F L 60 16 110/70 96 Room Air 09/16/24 08:18 09/16/24 08:18 09/16/24 08:18 09/16/24 08:18 09/16/24 08:18 09/16/24 08:18 Operation Date: 09/16/24 09:45 Proposed Procedures p EGD with Biopsy [id number](Not Applicable) - Sdi Rosales MD Familial anesthetic complications: None Was Beta Angella taken within 24 hours: N/A Was Clonidine taken within 24 hours: N/A Last intake: Intake Last Liquid Date 09/15/24 Last Liquid Time 20:00 Last Solid Date 09/15/24 Last Solid Time 17:00 Social Alcohol (hx etoh) and Tobacco Exam alert, oriented x 3, clear to auscultation bilaterally and regular rate & rhythm Airway Mallampati: Class I Dentition: other (missing) GI Gastroesophageal Reflux Disease Neuropsych Anxiety Anesthetic Plan ASA status: 3 Anesthesia: MAC Risk of > 500 ml blood loss (7ml/kg in children): No Medications/Allergies Home Medications ?Medication ?Instructions ?Recorded ?Confirmed ?Last Taken ?Type buspirone 15 mg tablet 15 mg PO TID #90 tabs 09/16/24 09/15/24 Rx fluoxetine 40 mg capsule 80 mg (2 x 40 mg) PO DAILY # 60 caps 06/17/24 09/16/24 09/15/24 Rx lithium carbonate 300 mg capsule 300 mg PO BEDTIME #30 caps 06/17/24 09/16/24 09/15/24 Rx quetiapine 300 mg tablet (Seroquel) 300 mg PO .HS #30 tabs 06/17/24 09/16/24 09/15/24 Rx pantoprazole 40 mg tablet,delayed 40 mg PO BID 30 days #60 tabs 08/21/24 09/16/24 09/15/24 Rx release Allergies Allergy/AdvReac Type Severity Reaction Status Date / Time tramadol Allergy HIVES Verified 09/16/24 08:15 Current Medications Generic Name Dose Route Start Last Admin Trade Name Freq PRN Reason Stop Dose Admin Sodium Chloride 1,000 mls @ 15 mls/hr 09/16/24 08:12 09/16/24 08:28 Sodium Chloride 0.9% IV 09/17/24 08:11 15 mls/hr .Q24H PRN Administration COLONOSCOPY FLUIDS PFSH Anesthesia Medical History (Updated 08/21/24 @ 10:34 by Sid Rosales MD) 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 PAM (generalized anxiety disorder) On combination antipsychotic drug therapy Social phobia, unspecified [place] use On combination antipsychotic drug therapy Cannabis dependence, uncomplicated Alcohol dependence, uncomplicated Benzodiazepine abuse 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 Anterior diskectomy C5/6 2. Insertion of cage C5/6 3. Instrumentation withscrews into C5 and C6 4. Use of allograft Family History Father , UNKNOWN CAUSE No problems noted. Denies family history of Diabetes Anesthesia complication Bleeding disorder Cancer Social History Smoking and tobacco/nicotine status: current every day tobacco/nicotine user cigarettes Packs smoked per day: 0.5 Years cigarettes smoked: 20 [ Other cigarette details: 6 CIGS DAY ] Alcohol intake: never Substance/Drug Use: never Lives independently: Yes Marital status: Single Current occupational status: disabled
--- NOTE | 2024-09-16 09:58 | W.PM.OPSUD ---
Surgery/Procedure H&P Update DATE OF PROCEDURE: September 16, 2024 DATE H&P PERFORMED: 08/21/24 H&P UPDATE INFORMATION: I have reviewed H&P completed within last 30 days, I have examined patient prior to procedure and No changes to prior documentation PLANNED PROCEDURE: Operation Date: 09/16/24 09:45 Proposed Procedures p EGD with Biopsy [id number](Not Applicable) - Sid Rosales MD
[2024-09-16 10:18] VITALS: BP 102/65; PULSE 55; RESP 20; TEMP 36.4; O2SAT 97
--- NOTE | 2024-09-16 16:03 | ANE.PACU2 ---
Inpatient post-anesthesia follow up: Airway intact: Yes Vital signs: Temperature 97.6 F Pulse Rate 55 Respiratory Rate 20 Blood Pressure 102/65 Pulse Oximetry 97 Oxygen Delivery Me thod Room Air Oxygen Flow Rate Fraction of Inspir ed Oxygen Hydration adequate: Yes Nausea and vomiting: No Pain level: 1 Mental status: Baseline
== END 2024-09-16 10:37 | disposition home or self-care (01) ==
PROVIDERS: PCP Family Medicine; Visit Provider Student in an Organized Health Care Education/Training Program
PROC: 0DJ08ZZ Inspection of Upper Intestinal Tract, Via Natural or Artificial Opening Endoscopic (ICD-10-PCS; principal; 2024-09-16 09:45)
DX: K29.50 Unspecified chronic gastritis without bleeding (principal); K21.9 Gastro-esophageal reflux disease without esophagitis; F17.210 Nicotine dependence, cigarettes, uncomplicated; Z79.899 Other long term (current) drug therapy; Z88.5 Allergy status to narcotic agent
CPT/HCPCS: 43239; 45380; 88305; J2704; J7030

== ENCOUNTER → 2024-10-06 09:08 | Outpatient (BNVA) | payer MEDICAID, SELFPAY ==
[2024-06-18 15:29] VITALS: BP 122/80; BMI 16.2
== END ==
PROVIDERS: PCP Family Medicine; Visit Provider Student in an Organized Health Care Education/Training Program
DX: Z09 Encounter for follow-up examination after completed treatment for conditions other than malignant neoplasm (principal); R12 Heartburn
CPT/HCPCS: 99204